=== PATIENT | female | born 1935 | race Caucasian/White ===

== ENCOUNTER 2016-08-19 05:33 | Inpatient (IN) ==
--- NOTE | 2016-08-19 05:49 | Emergency Department Note ---
Disposition Clinical Impression: Dehydration Disposition: Still a Patient Condition: Fair Referrals: Cem Dorantes MD [Primary Care Provider] - Forms: ED Satisfaction Letter Time of Disposition: 07:06 Back Pain HPI - General Chief Complaint: ED Back Pain/Injury Stated Complaint: back pain Time Seen by Provider: 08/19/16 05:35 Source: patient, EMS Limitations: no limitations Nursing Notes Reviewed: Yes Vital Signs Reviewed: Yes - History of Present Illness HPI Narrative: 80-year-old female with mechanical fall a few days ago, diagnosed with lumbar contusion, patient has had some dehydration, right lower quadrant pain, and right flank pain, thinks that she may have a UTI or urinary infection. Has been having some dysuria as well. History of bladder prolapse. 3-10 crampy pain. Pt Subjective Complaint: fall Onset (ago): day(s) Duration: intermittent Similar Symptoms Previously: Yes Pain Severity: mild Pain Scale: 3 Radiation: none Improves with: none Worsens with: none - Related Data Previous Rx's Medication Instructions Recorded Cyclobenzaprine [Flexeril] 10 mg PO TID #30 tablet 08/15/16 Allergies Allergy/AdvReac Type Severity Reaction Status Date / Time No Known Allergies Allergy Verified 02/28/16 15:13 All systems ED: reviewed and negative except as stated. Constitutional: Denies: fever, chills, weakness, weight change Cardiovascular: Denies: chest pain Respiratory: Denies: cough, dyspnea Gastrointestinal: Reports: abdominal pain, nausea. Denies: vomiting, diarrhea Genitourinary: Reports: urgency, dysuria. Denies: frequency, hematuria Musculoskeletal: Reports: back pain Integumentary: Denies: rash Past Medical History - Past Medical History Attestation: Yes The following information was validated with the patient. Source: patient Medical history: Reports: hyperlipidemia, hypertension Psychiatric history: Reports: no psych history - Social History Smoking Status: Never smoker Smokeless Tobacco Status: No Alcohol use: Reports: none Drug use: Reports: none Physical Exam Constitutional: Elderly female in no acute distress, appears stated age HEENT: NCAT, sclera anicteric, PERRLA bilaterally, normal external ears bilaterally, nasal septum nondeviated, average dentition, mucous membranes Neck: normal inspection, neck is supple, trachea midline Resp: normal chest inspection, CTA bilaterally, no resp distress CV: RRR, no m/g/r GI: normal inspection, Soft, NTND, BS present Back: Positive right CVA tenderness Neuro: A&O3, no gross motor or sensory deficits bilaterally MSK: Mild tenderness to palpation right hip with range of motion. Psych: normal mood, normal affect Skin: Poor skin turgor - General Limitations: no limitations General appearance: alert, in no apparent distress Course Course Narrative: A 1-year-old female previous mechanical fall injury now possibly dehydrated with a KI, dehydration, urinalysis ordered BMP IV fluids reassessed. Vital Signs Temperature 98.1 F 08/19/16 05:35 Pulse Rate 76 08/19/16 05:35 Respiratory Rate 16 08/19/16 05:35 Blood Pressure 176/88 08/19/16 05:35 O2 Sat by Pulse Oximetry 96 08/19/16 05:35 Temperature 98.1 F 08/19/16 05:35 Pulse Rate 76 08/19/16 05:35 Respiratory Rate 16 08/19/16 05:35 Blood Pressure 176/88 08/19/16 05:35 O2 Sat by Pulse Oximetry 96 08/19/16 05:35 Oxygen Delivery Oxygen Delivery Room Air Back Pain/Injury - Lab Data Result diagrams: 08/19/16 06:50 08/19/16 06:50 Lab Results 08/19/16 08/19/16 Range/Units 06:50 06:50 WBC 8.5 (4.3-11.1) K/mcL RBC 4.47 (3.82-4.97) M/mcL Hgb 12.4 (11.5-15.4) g/dL Hct 36.3 (35.3-44.9) % MCV 81.2 L (83.0-100.0) fL MCH 27.7 L (28.0-33.3) pg MCHC 34.2 (31.6-35.5) g/dL RDW 12.8 (11.5-14.5) % Plt Count 187 (140-400) K/mcL MPV 9.9 (9.4-12.4) fL Immature Gran % 0.7 (0-4) % Seg Neutrophils % 68.4 % Lymphocytes % 17.8 % Monocytes % 8.1 % Eosinophils % 4.6 % Basophils % 0.4 % Neutrophils # 5.8 (1.6-8.9) K/mcL Lymphocytes # 1.5 (0.6-4.6) K/mcL Monocytes # 0.7 (0.0-1.3) K/mcL Eosinophils # 0.4 (0.0-0.6) K/mcL Basophils # 0.0 (0.0-0.2) K/mcL Sodium 134 L (136-145) mEq/L Potassium 4.0 (3.5-4.5) mEq/L Chloride 100 (98-109) mEq/L Carbon Dioxide 23 (19-29) mEq/L BUN 18 (7-20) mg/dL Creatinine 0.75 (0.57-1.11) mg/dL Est GFR ( Amer) > 60 (> 60) Est GFR (Non-Af Amer) > 60 (> 60) BUN/Creatinine Ratio 24 (6-26) Glucose 90 (70-99) mg/dL Calculated Osmolality 279 L (280-300) Calcium 8.8 (8.6-10.8) mg/dL S.B.A.R. - S.B.A.R. Transition of Care: Pending labs and imaging dispo for flank pain dysuria Situation: Demographics, MOA Background: Presenting Complaint, Relevant PMH, Meds, & Allergies Assessment: Vital Signs, Course and respsone to treatment, Exam Concerns, Patient/Family Expectation, Pertinant Lab Results, Outstanding Labs Recommendation: Barrier(s) to disposition, Recommendation based on pending studies, treatments, or consults S.B.A.R. Report Given to: Phi Lyman Repor Time: 07:06 Attestation Statement - Attestation Attestation: I, Morris Allison MD, personally performed a history and physical exam of the patient and discussed their management with the resident. I reviewed the resident's note and agree with the documented findings, medical decision making , and plan of care. 80-year-old female who presents to the emergency department with a complaint of right lower back pain after a fall approximately 10 days ago. She was seen here in the emergency department approximately 5 days ago and had x-rays of her back which were reportedly negative. She returns tonight complaining of continued right lower back pain. The pain is worse with movement. No radiation down the leg. No numbness tingling or weakness. No abdominal pain. No fever. She does complain of increased urinary frequency and maybe some mild dysuria. She has not been getting around as well her as much as usual. On examination patient is a well-developed well-nourished elderly female in no acute distress. She is alert and oriented 3. There is no cyanosis or diaphoresis. She does appear mildly dehydrated mucous membranes are dry. Breath sounds are clear and equal bilaterally. Heart regular rate and rhythm. Abdomen soft and nontender with normal bowel sounds. X-ray was obtained of the right hip and pelvis. Labs and urinalysis were ordered and are pending. At shift change the patient is being signed out to the oncoming daysdeft physician, Dr. Ott.
[2016-08-19] MEDS ORDERED: 0.9 % Sodium Chloride 1,000 ML IV ONE (06:19)
[2016-08-19] MEDS ORDERED: Orphenadrine 60 MG/2 ML VIAL IVP ONE (06:20)
[2016-08-19 06:56] LABS: Basophils % 0.4 %; Eosinophils # 0.4 K/mcL (0.0-0.6); Eosinophils % 4.6 %; Hematocrit 36.3 % (35.3-44.9); Hemoglobin 12.4 g/dL (11.5-15.4); Immature Granulocytes % 0.7 % (0-4); Lymphocytes # 1.5 K/mcL (0.6-4.6); Lymphocytes % 17.8 %; Mean Corpuscular HGB Conc 34.2 g/dL (31.6-35.5); Mean Corpuscular Hemoglobin 27.7 pg (28.0-33.3); Mean Corpuscular Volume 81.2 fL (83.0-100.0); Mean Platelet Volume 9.9 fL (9.4-12.4); Monocytes # 0.7 K/mcL (0.0-1.3); Monocytes % 8.1 %; Neutrophils # 5.8 K/mcL (1.6-8.9); Platelet Count 187 K/mcL (140-400); Red Blood Count 4.47 M/mcL (3.82-4.97); Red Cell Distribution Width 12.8 % (11.5-14.5); Segmented Neutrophils % 68.4 %
--- NOTE | 2016-08-19 07:09 | Emergency Department Note ---
Disposition Clinical Impression: Inability to ambulate due to hip Back pain Qualifiers: Back pain location: low back pain Chronicity: unspecified Back pain laterality : right Sciatica presence: with sciatica Sciatica laterality: sciatica of right side Qualified Code(s): M54.41 - Lumbago with sciatica, right side Fall Qualifiers: Encounter type: subsequent encounter Qualified Code(s): W19.XXXD - Unspecified fall, subsequent encounter L1 vertebral fracture Qualifiers: Encounter type: subsequent encounter Fracture morphology: unspecified fracture morphology Fracture healing: with nonunion Disposition: Admitted As Inpatient Condition: Fair Time of Disposition: 07:32 General Adult HPI - General Chief complaint: ED Back Pain/Injury Stated complaint: back pain Time Seen by Provider: 08/19/16 05:35 Source: patient, EMS Limitations: no limitations - History of Present Illness Pain Scale: 3 - Related Data Previous Rx's Medication Instructions Recorded Cyclobenzaprine [Flexeril] 10 mg PO TID #30 tablet 08/15/16 Allergies Allergy/AdvReac Type Severity Reaction Status Date / Time No Known Allergies Allergy Verified 02/28/16 15:13 Constitutional: Denies: fever, chills, weakness, weight change Cardiovascular: Denies: chest pain Respiratory: Denies: cough, dyspnea Gastrointestinal: Reports: abdominal pain, nausea. Denies: vomiting, diarrhea Genitourinary: Reports: urgency, dysuria. Denies: frequency, hematuria Musculoskeletal: Reports: back pain Integumentary: Denies: rash Past Medical History - Past Medical History Medical history: Reports: hyperlipidemia, hypertension Psychiatric history: Reports: no psych history - Social History Smoking Status: Never smoker Smokeless Tobacco Status: No Alcohol use: Reports: none Drug use: Reports: none Physical Exam - General Limitations: no limitations General appearance: alert, in no apparent distress Course Vital Signs Temperature 98.1 F 08/19/16 05:35 Pulse Rate 76 08/19/16 05:35 Respiratory Rate 16 08/19/16 05:35 Blood Pressure 176/88 08/19/16 05:35 O2 Sat by Pulse Oximetry 96 08/19/16 05:35 Temperature 97.5 F L 08/19/16 08:54 Pulse Rate 71 08/19/16 08:54 Respiratory Rate 16 08/19/16 09:04 Blood Pressure 183/97 08/19/16 09:04 O2 Sat by Pulse Oximetry 97 08/19/16 08:54 Oxygen Delivery Oxygen Delivery Room Air Medical Decision Making - Lab Data Result diagrams: 08/19/16 06:50 08/19/16 06:50 Lab Results 08/19/16 08/19/16 08/19/16 Range/Units 06:50 06:50 07:15 WBC 8.5 (4.3-11.1) K/mcL RBC 4.47 (3.82-4.97) M/mcL Hgb 12.4 (11.5-15.4) g/dL Hct 36.3 (35.3-44.9) % MCV 81.2 L (83.0-100.0) fL MCH 27.7 L (28.0-33.3) pg MCHC 34.2 (31.6-35.5) g/dL RDW 12.8 (11.5-14.5) % Plt Count 187 (140-400) K/mcL MPV 9.9 (9.4-12.4) fL Immature Gran % 0.7 (0-4) % Seg Neutrophils % 68.4 % Lymphocytes % 17.8 % Monocytes % 8.1 % Eosinophils % 4.6 % Basophils % 0.4 % Neutrophils # 5.8 (1.6-8.9) K/mcL Lymphocytes # 1.5 (0.6-4.6) K/mcL Monocytes # 0.7 (0.0-1.3) K/mcL Eosinophils # 0.4 (0.0-0.6) K/mcL Basophils # 0.0 (0.0-0.2) K/mcL Sodium 134 L (136-145) mEq/L Potassium 4.0 (3.5-4.5) mEq/L Chloride 100 (98-109) mEq/L Carbon Dioxide 23 (19-29) mEq/L BUN 18 (7-20) mg/dL Creatinine 0.75 (0.57-1.11) mg/dL Est GFR ( Amer) > 60 (> 60) Est GFR (Non-Af Amer) > 60 (> 60) BUN/Creatinine Ratio 24 (6-26) Glucose 90 (70-99) mg/dL Calculated Osmolality 279 L (280-300) Calcium 8.8 (8.6-10.8) mg/dL Urine Color Yellow (Yellow) Urine Clarity Clear (Clear) Urine pH 6.5 (5.0-8.0) pH Units Ur Specific [place] 1.010 (1.010-1.025) Urine Protein Negative (Neg-Trace) mg/dL Urine Glucose (UA) Normal (Normal) mg/dL Urine Ketones Negative (Negative) mg/dL Urine Blood Negative (Negative) Urine Nitrite Negative (Negative) Urine Bilirubin Negative (Negative) Urine Urobilinogen Normal (Normal) mg/dL Ur Leukocyte Esterase Large H (Negative) Urine Microscopic RBC 0-3 (0-3) per hpf Urine Microscopic WBC 30-50 H (0-3) per hpf Ur Squamous Epith Cells Many H (None-Few) per lpf Urine Bacteria Few (None-Few) per hpf Hyaline Casts None Seen (None-Few) per lpf Ur Culture Indicated? YES A (NO) Attestation Statement - Attestation Attestation: Assumed from Dr. Allison at 7 AM pending a urinalysis, labs, hip x-ray, reevaluation. Patient sustained a subacute fall. She presents with right flank pain. She appears in no acute distress on exam. She is resting completely. CBC, hip x-ray results reviewed by me. Urinalysis pending 07:31: Urinalysis resulted. Culture pending. No criteria for antibiotic therapy at this time. Patient stable for discharge 07:37: The patient states she is unsafe going home. She states she has had progressive lower back pain radiating down her right lower extremity over the past 2 weeks. She is having difficulty ambulating with her walker at home. Her visitor states she is having difficulty caring for her. The patient and family member requested admission. I will obtain a CT of her lumbar spine and pelvis to exclude an occult fracture. I will request admission for the medicine service for the patient to have PT/OT and social work to [facility]
[2016-08-19 07:11] LABS: BUN/Creatinine Ratio 24 (6-26); Blood Urea Nitrogen 18 mg/dL (7-20); Calcium 8.8 mg/dL (8.6-10.8); Carbon Dioxide 23 mEq/L (19-29); Chloride 100 mEq/L (98-109); Glucose 90 mg/dL (70-99); Osmolality,Calculated 279 (280-300); Sodium 134 mEq/L (136-145); eGFR For African Americans > 60 (> 60); eGFR For Non-African Americans > 60 (> 60)
[2016-08-19 07:20] LABS: Bilirubin,Urine Negative (Negative); Blood,Urine Negative (Negative); Clarity,Urine Clear (Clear); Color,Urine Yellow (Yellow); Glucose,Urine (UA) Normal (Normal); Ketones,Urine Negative (Negative); Leukocyte Esterase,Urine Large (Negative); Nitrite,Urine Negative (Negative); PH,Urine 6.5 pH Units (5.0-8.0); Protein,Urine Negative (Neg-Trace); Urobilinogen,Urine Normal (Normal)
[2016-08-19 07:22] LABS: Bacteria,Urine Few per hpf (None-Few); Hyaline Casts,Urine None Seen per lpf (None-Few); RBC,Urine 0-3 per hpf (0-3); Squamous Epithelial Cell,Urine Many per lpf (None-Few); WBC,Urine 30-50 per hpf (0-3)
[2016-08-19] MEDS ORDERED: Ketorolac 15 MG/ML VIAL IVP ONE (07:36)
[2016-08-19] MEDS ORDERED: Naloxone 0.4 MG/ML INJ IVP PRN (09:29)
[2016-08-19] MEDS ORDERED: *HR* Morphine 2 MG/ML SYRINGE IVP PRN (09:29)
--- NOTE | 2016-08-19 09:49 | Internal Med History&Physical ---
Date of Encounter: 08/19/16 Time of Encounter: 09:49 Assessment and Plan (1) Back pain Status: Acute Back pain: Possible secondary to urinary tract infection/L1 vertebral fracture. Plan : -Bedrest. -Pain control with IV morphine. -Spine surgery consult. -MRI of the lumbar spine. -Patient is scheduled for possible kyphoplasty tomorrow. -Patient is aware of the plan. Qualifiers: Back pain location: low back pain Chronicity: unspecified Back pain laterality: right Sciatica presence: with sciatica Sciatica laterality: sciatica of right side Qualified Code(s): M54.41 - Lumbago with sciatica, right side (2) L1 vertebral fracture Status: Acute See above Qualifiers: Encounter type: subsequent encounter Fracture type: closed Fracture morphology: unspecified fracture morphology Fracture healing: with nonunion Qualified Code(s): S32.019K - Unspecified fracture of first lumbar vertebra, subsequent encounter for fracture with nonunion (3) UTI (urinary tract infection) Status: Acute Blood cultures/urine culture IV antibiotics: Ceftriaxone 1 g every 24 hours Close observation DVT prophylaxis: SCD Medical decision making: Patient has [id number] risk of worsening in spite of being on appropriate treatment Qualifiers: Urinary tract infection type: acute cystitis Hematuria presence: without hematuria Qualified Code(s): N30.00 - Acute cystitis without hematuria Internal Medicine - H&P: HPI Chief complaint: Back pain Admitted From: Emergency Dept Plans for Post Hospital Care: Home History of present illness: PCP: Dr Jayna Guallpa PMH: HTN, Dyslipidemia HPI: The patient was complaining of dysuria, increased frequency, I do not quadrant pain and occasional fever. All the symptoms were ongoing for more than 4 days. It was noted that patient had a fall and that prompted her to come to the emergency room. 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 She denies chest pain, nausea, vomiting, dizziness, abdominal pain or diarrhea. Course in the emergency room : patient was evaluated in the emergency room. Basic labs were drawn. Possibility of underlying urinary tract infection is extremely high. Imaging done. Noted that patient has a L1 fracture. Reason for admission: Acute L1 fracture secondary to fall. Complicated urinary tract infection. Family history: Noncontributory Past Med Surg Social Fam HX - Past Medical History Medical history: hyperlipidemia, hypertension Psychiatric history: no psych history - Past Surgical History Surgical History: appendectomy, breast surgery, hysterectomy, knee replacement - Social History Smoking Status: Never smoker Smokeless Tobacco Status: No Alcohol use: none Drug use: none - Family History Mother Adopted: No Family Member Ethnicity: Non- Living Status: Age at : 79 Cause of : heart condition Hx Family Cardiac Disorders: Yes Hx Family Respiratory Disorders: No Hx Family Cancer: Yes Hx Family GI Disorders: No Hx Family Genitourinary Disorders: No Hx Family Endocrine Disorder: No Hx Family Musculoskeletal Disorders: No Hx Family Neuromuscular Disorders: No Hx Family Neurologic Disorders: No Hx Family HEENT Disorders: No Hx Family Autoimmune Disorders: No Hx Family Reproductive Disorders: No Hx Family Psychosocial Disorders: No Hx Family Medical Disorders: No Internal Medicine - H&P: Meds Cyclobenzaprine [Flexeril] 10 mg PO TID #30 tablet 08/15/16 [Rx] Amlodipine [Norvasc] 5 mg PO DAILY 08/19/16 [History] Aspirin [Lo-Dose Aspirin EC] 81 mg PO DAILY 08/19/16 [History] Carvedilol [Coreg] 12.5 mg PO BID 08/19/16 [History] Diphenoxylate/Atropine [Lomotil 2.5 mg/0.025 mg] 1 tab PO QID PRN 08/19/16 [ History] Meclizine HCl [Verticalm] 25 mg PO DAILY 08/19/16 [History] Oxybutynin [Ditropan] 5 mg PO TID 08/19/16 [History] Potassium Chloride [Klor-Con 10] 10 meq PO BID 08/19/16 [History] Simvastatin [Zocor] 10 mg PO DAILY 08/19/16 [History] Allergies No Known Allergies Allergy (Verified 02/28/16 15:13) All Systems PM: A 10-system review of systems was performed and is negative for pertinent findings except as documented above in the HPI. - Constitutional Constitutional: lethargy, malaise, weakness, no chills, no fever(s), no night sweats - EENT Eyes: no change in vision, no discharge, no pain, no photophobia Ears: no ear discharge, no ear pain, no tinnitus Nose, mouth and throat: no dysphagia, no nasal discharge, no neck pain, no sore throat - Cardiovascular Cardiovascular ROS IM: no chest pain, no diaphoresis, no dyspnea, no lightheadedness, no palpitations, no syncope - Respiratory Respiratory: no cough, no dyspnea, no wheezing, no excessive phlegm production - Gastrointestinal Gastrointestinal: no abdominal pain, no diarrhea, no hematemesis, no hematochezia, no melena, no nausea, no vomiting - Genitourinary Genitourinary: dysuria, flank pain, no change in urinary stream, no hematuria - Musculoskeletal Musculoskeletal ROS IM: no numbness, no tingling - Integumentary Integumentary IM: no rash, no unusual bruising - Neurological Neurological ROS: no confusion, no convulsions, no focal weakness, no numbness, no tingling, no tremor(s) - Hematologic/Lymphatic Hematologic/Lymphatic: no easy bruising - Constitutional Vitals: Temp Pulse Resp BP Pulse Ox 97.5 F L 71 16 183/97 97 08/19/16 08:54 08/19/16 08:54 08/19/16 09:04 08/19/16 09:04 08/19/16 08:54 General appearance: Present: A&O X 3, pleasant, no acute distress, answers questions appropriately - Head Head exam: Present: atraumatic, normocephalic - Eye Eye exam: Present: PERRL, conjuntiva pink, sclera anicteric Pupils: Present: PERRL - Neck Neck exam general surgery: Present: supple, trachea midline. Absent: lymphadenopathy - Respiratory Respiratory exam: Present: CTAB. Absent: accessory muscle use, rales, rhonchi, wheezes - Cardiovascular Cardiovascular exam: Present: RRR, +S1, +S2. Absent: diastolic murmur, gallop, rubs, systolic murmur - GI/Abdominal GI/Abdominal exam: Present: normal bowel sounds, soft, no peritoneal signs. Absent: distended, tenderness - Extremities Exam Extremities exam: Present: warm, radial pulses palpable and symetrical. Absent : calf tenderness, cyanotic, pedal edema - Neurological Exam Neurological exam: Present: CN II-XII intact, oriented X3, no focal deficits. Absent: pronater drift, facial droop, speech deficit - Skin Skin exam: Present: dry, intact Internal Med - H&P Results - Labs CBC & Chem 7: 08/20/16 04:59 08/20/16 04:59
[2016-08-19] MEDS: 0.9 % Sodium Chloride 1,000 ML IVC SCH (14:20)
[2016-08-20 05:19] LABS: Basophils % 0.4 %; Eosinophils # 0.4 K/mcL (0.0-0.6); Eosinophils % 5.4 %; Hematocrit 34.7 % (35.3-44.9); Hemoglobin 11.8 g/dL (11.5-15.4); Immature Granulocytes % 0.7 % (0-4); Lymphocytes # 1.8 K/mcL (0.6-4.6); Lymphocytes % 24.2 %; Mean Corpuscular Hemoglobin 27.8 pg (28.0-33.3); Mean Corpuscular Volume 81.6 fL (83.0-100.0); Mean Platelet Volume 10.1 fL (9.4-12.4); Monocytes # 0.6 K/mcL (0.0-1.3); Monocytes % 8.6 %; Neutrophils # 4.5 K/mcL (1.6-8.9); Platelet Count 178 K/mcL (140-400); Red Blood Count 4.25 M/mcL (3.82-4.97); Red Cell Distribution Width 12.8 % (11.5-14.5); Segmented Neutrophils % 60.7 %
[2016-08-20] MEDS: 0.9 % Sodium Chloride 1,000 ML IVC SCH (05:30)
[2016-08-20 05:42] LABS: Alanine Aminotransferase 9 Units/L (0-55); Albumin/Globulin Ratio 0.8 (1.1-2.2); Alkaline Phosphatase 71 Units/L (38-126); Aspartate Amino Transferase 22 Units/L (5-34); BUN/Creatinine Ratio 19 (6-26); Bilirubin,Total 0.6 mg/dL (0.2-1.2); Blood Urea Nitrogen 14 mg/dL (7-20); Calcium 8.3 mg/dL (8.6-10.8); Carbon Dioxide 21 mEq/L (19-29); Chloride 101 mEq/L (98-109); Globulin 3.7 g/dL (2.4-3.5); Glucose 83 mg/dL (70-99); Magnesium 1.6 mg/dL (1.6-2.6); Osmolality,Calculated 274 (280-300); Potassium 3.9 mEq/L (3.5-4.5); Sodium 132 mEq/L (136-145); Total Protein 6.7 g/dL (6.0-8.3); eGFR For African Americans > 60 (> 60); eGFR For Non-African Americans > 60 (> 60)
--- NOTE | 2016-08-20 08:01 | Spinal Consult Note ---
Date of Encounter: 08/20/16 Time of Encounter: 07:59 Assessment and Plan (1) Osteopenia determined by x-ray Current Visit: Yes Status: Chronic On exam she is mild distress. AFVSS. She is neurovascularly intact with regard to her bilateral upper and lower extremities. Her hips move symmetrically. She has no clonus. She has tendernessss to palpation of the upper lumbar spine. MRI examination of the lumbar spine from 08/19/16 reveals multilevel degenerative changes and an acute L1 compression fracture with 40% loss of height. Impression: 1) Osteopenia 2) Acute vertebral compression fracture L1 Plan: Due to her continued symptoms I find it reasonable to consider surgery in the form of a Kyphoplasty L1. She declined the option of analgesics and bracing. Risks and benefits were discussed and he patient would like to proceed. History of Present Illness Chief complaint: Back pain HPI: Ms. Hollins is a 80 year old female who had a fal on 08/09/16 onto back side. She now complain of escalating low back pain which became intractable and prompted transfer to the Emergency Department. Work up revealed an acute fracture and she was admittted for definitive management. Denies fevers, chills, or radicular symptoms. Past Med Surg Social Fam HX - Past Medical History Medical history: hyperlipidemia, hypertension Psychiatric history: no psych history - Past Surgical History Surgical History: appendectomy, breast surgery, hysterectomy, knee replacement - Social History Smoking Status: Never smoker Smokeless Tobacco Status: No Alcohol use: none Drug use: none - Family History Mother Adopted: No Family Member Ethnicity: Non- Living Status: Age at : 79 Cause of : heart condition Hx Family Cardiac Disorders: Yes Hx Family Respiratory Disorders: No Hx Family Cancer: Yes Hx Family GI Disorders: No Hx Family Genitourinary Disorders: No Hx Family Endocrine Disorder: No Hx Family Musculoskeletal Disorders: No Hx Family Neuromuscular Disorders: No Hx Family Neurologic Disorders: No Hx Family HEENT Disorders: No Hx Family Autoimmune Disorders: No Hx Family Reproductive Disorders: No Hx Family Psychosocial Disorders: No Hx Family Medical Disorders: No Medications and Allergies Cyclobenzaprine [Flexeril] 10 mg PO TID #30 tablet 08/15/16 [Rx] Amlodipine [Norvasc] 5 mg PO DAILY 08/19/16 [History] Aspirin [Lo-Dose Aspirin EC] 81 mg PO DAILY 08/19/16 [History] Carvedilol [Coreg] 12.5 mg PO BID 08/19/16 [History] Diphenoxylate/Atropine [Lomotil 2.5 mg/0.025 mg] 1 tab PO QID PRN 08/19/16 [ History] Meclizine HCl [Verticalm] 25 mg PO DAILY 08/19/16 [History] Oxybutynin [Ditropan] 5 mg PO TID 08/19/16 [History] Potassium Chloride [Klor-Con 10] 10 meq PO BID 08/19/16 [History] Simvastatin [Zocor] 10 mg PO DAILY 08/19/16 [History] Allergies No Known Allergies Allergy (Verified 02/28/16 15:13) Results - Labs Result Diagrams: 08/20/16 04:59 08/20/16 04:59 Labs: Abnormal lab results Hct 34.7 % (35.3-44.9) L 08/20/16 04:59 MCV 81.6 fL (83.0-100.0) L 08/20/16 04:59 MCH 27.8 pg (28.0-33.3) L 08/20/16 04:59 Sodium 132 mEq/L (136-145) L 08/20/16 04:59 Calculated Osmolality 274 (280-300) L 08/20/16 04:59 Calcium 8.3 mg/dL (8.6-10.8) L 08/20/16 04:59 Albumin 3.0 g/dL (3.5-5.0) L 08/20/16 04:59 Globulin 3.7 g/dL (2.4-3.5) H 08/20/16 04:59 Albumin/Globulin Ratio 0.8 (1.1-2.2) L 08/20/16 04:59 Ur Leukocyte Esterase Large (Negative) H 08/19/16 07:15 Urine Microscopic WBC 30-50 per hpf (0-3) H 08/19/16 07:15 Ur Squamous Epith Cells Many per lpf (None-Few) H 08/19/16 07:15 Ur Culture Indicated? YES (NO) A 08/19/16 07:15 H & H 08/20/16 Range/Units 04:59 Hgb 11.8 (11.5-15.4) g/dL Hct 34.7 L (35.3-44.9) % All other labs normal. Consult Discharge Plan - Plan Referrals: Cem Dorantes MD [Primary Care Provider] -
--- NOTE | 2016-08-20 08:04 | Anesthesia Evaluation PreOp ---
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 (acute L4 (per CT), lumbar stenosis) Other Medical History: Denies Any Significant HX Anesthesia History: No Prior Anesthetic Complications, Past Anesthesia Alcohol Use: none Drug use: none Medications and Allergies Cyclobenzaprine [Flexeril] 10 mg PO TID #30 tablet 08/15/16 [Rx] Amlodipine [Norvasc] 5 mg PO DAILY 08/19/16 [History] Aspirin [Lo-Dose Aspirin EC] 81 mg PO DAILY 08/19/16 [History] Carvedilol [Coreg] 12.5 mg PO BID 08/19/16 [History] Diphenoxylate/Atropine [Lomotil 2.5 mg/0.025 mg] 1 tab PO QID PRN 08/19/16 [ History] Meclizine HCl [Verticalm] 25 mg PO DAILY 08/19/16 [History] Oxybutynin [Ditropan] 5 mg PO TID 08/19/16 [History] Potassium Chloride [Klor-Con 10] 10 meq PO BID 08/19/16 [History] Simvastatin [Zocor] 10 mg PO DAILY 08/19/16 [History] Allergies No Known Allergies Allergy (Verified 02/28/16 15:13) - Meds/Allergy Pre-op Review Medications Reviewed: Yes Allergies Reviewed: Yes Beta Blockers on Current Med List: Yes If Beta Blockers taken, Date/Time (Last Dose taken): coreg did not take today, must give preop Anesthesia Results - Labs 08/20/16 04:59 08/20/16 04:59 - Imaging EKG: report reviewed (nsr (2012), no cardiac issues since) Anesthesia Exam O2 Sat Height 1.63 m Height 1.63 m Weight 94 kg Weight 93.123 kg Weight 93.123 kg O2 Sat by Pulse Oximetry 94 O2 Sat by Pulse Oximetry 95 O2 Sat by Pulse Oximetry 94 O2 Sat by Pulse Oximetry 96 O2 Sat by Pulse Oximetry 96 O2 Sat by Pulse Oximetry 96 O2 Sat by Pulse Oximetry 97 Vital Signs Temp Pulse Resp BP Pulse Ox 98.1 F 76 16 176/88 96 08/19/16 05:35 08/19/16 05:35 08/19/16 05:35 08/19/16 05:35 08/19/16 05:35 Vital Signs/O2 Sat/Glucose, Most Current Temp Pulse Resp BP Pulse Ox 08/20/16 07:39 97.9 F 79 18 154/83 94 L Height: 1.63 Weight: 93 NPO (# of Hours): >8 - HEENT Pupil (Motor): Pupils equal, EOMI Mallampati: II Teeth: Edentulous Oral Opening: Greater than 3 - ELECTROGALVANIZING MACHINE OPERATOR LOC: Oriented ELECTROGALVANIZING MACHINE OPERATOR Motor: Normal RUE, Normal LUE, Normal RLE, Normal LLE, Normal Face ELECTROGALVANIZING MACHINE OPERATOR Sensory: Normal: RUE, LUE, RLE, LLE, Face - Cardiac Rhythm: Regular Murmur: None - Pulmonary Breath Sounds: bilateral Clear Respiratory Effort: Symmetrical Anesthesia Assess/Plan ASA Score: 3 Modified Dhruv Scale for Level of Consciousness: Cooperative, oriented, and tranquil Anesthetic Plan: General Monitoring Plan: Standard Monitors Recovery Plan: PACU
[2016-08-20] MEDS ORDERED: *HR* Propofol 200 MG/20 ML VIAL IVP ONE (08:15)
[2016-08-20] MEDS ORDERED: Lidocaine -MPF 2% 2 ML VIAL ONE (08:15)
[2016-08-20] MEDS ORDERED: *HR* FentaNYL (PF) 100 MCG/2 ML VIAL ONE (08:15)
[2016-08-20] MEDS ORDERED: *HR* Succinylcholine 200 MG/10 ML VIAL IVP ONE (08:15)
[2016-08-20] MEDS ORDERED: *HR* Phenylephrine 10 MG/ML VIAL ONE (08:15)
[2016-08-20] MEDS ORDERED: *HR* Metoprolol 5 MG/5 ML VIAL IVP ONE (09:41)
[2016-08-20] MEDS ORDERED: EPHEDrine 50 MG/ML VIAL ONE (09:41)
[2016-08-20] MEDS ORDERED: Ondansetron 4 MG/2 ML VIAL IVP ONE (09:57)
[2016-08-20] MEDS ORDERED: *HR* HYDROmorphone (PF) 1 MG/ML SYRINGE IVP PRN (09:57)
[2016-08-20] MEDS ORDERED: *HR* Morphine 2 MG/ML SYRINGE IVP PRN ×2 (09:57→11:41)
[2016-08-20] MEDS ORDERED: Dexamethasone 4 MG/ML VIAL ONE (10:06)
--- NOTE | 2016-08-20 10:13 | Orthopedic Operative Note ---
Date of procedure: 08/20/16 Pre-op diagnosis: Osteopenia, vertebral compression fracture Post-op diagnosis: same Operation/Findings: Kyphoplasty L1: The patient was brought to the operative theater where successful endotracheal anesthesia was performed. The patient was given antibiotics prior to the start of the procedure. Compression boots and stockings were used for deep vein thrombosis. Patient was then turned prone on a well-padded Lennox table. The back was prepped and draped in the usual sterile fashion. 2 C-arm fluorographic devices were brought into position such that simultaneous AP and lateral views centered over the involved L1 vertebral body could be performed. A stab incision was made over the superior-lateral aspect of the left L1 pedicle. We introduced a Jamshidi needle into the L1 vertebral body via a transpedicular route. We took biplanar images of the L1 vertebral body using fluorography. The needle was found to be in appropriate position and within the confines of the L1 vertebral body. We then introduced a biopsy trocar and obtained a biopsy specimen of the vertebral body. This was sent for pathologic evaluation. We then removed the biopsy trocar and introduced a Kyphon balloon. The balloon was insufflated to approximately 4mL volume and subsequently deflated. The balloon was seen to expand within the confines of the vertebral body on biplanar fluorographic views. The balloon was then removed. We then inserted cement trochars and sequentially placed bone cement within the confines of the L1 vertebral body. We took intermittent fluorographic views which confirmed satisfactory placement of the cement. After completion of the cementation process, the trocar was removed. We took final AP and lateral fluorographic views. We then closed the stab incision with 2-0 nylon suture. A Band-Aid was placed over the wound. The patient was turned supine on a hospital bed and extubated. All sponge instrument and needle counts were correct at the end of the procedure. The patient tolerated the procedure well without complications. Anesthesia: GETA Surgeon: Scott Gonzalez Jr Estimated blood loss (cc): 2 Specimen: L1 vertebral biopsy Condition: stable Disposition: PACU
[2016-08-20] MEDS ORDERED: Naloxone 0.4 MG/ML INJ IVP PRN (11:41)
[2016-08-20] MEDS ORDERED: Diphenoxylate/Atropine 1 TAB TABLET PO PRN (11:41)
[2016-08-20] MEDS ORDERED: amLODIPine 5 MG TABLET PO ONE (11:42)
[2016-08-20] MEDS: Ringers Solution, Lactated 1,000 ML IVC SCH (12:18)
[2016-08-20] MEDS: ceFAZolin 2,000 MG in D5% in Water 100 ML IVPB SCH (17:02)
--- NOTE | 2016-08-20 17:02 | Internal Med Progress Note ---
Date of Encounter: 08/20/16 Time of Encounter: 16:57 - Assessment and plan (1) Fall Current Visit: Yes Status: Acute Assessment and plan: PT/OT has been consulted high [place] for recurrent fall will follow recommendtaions Qualifiers: Encounter type: subsequent encounter Qualified Code(s): W19.XXXD - Unspecified fall, subsequent encounter (2) L1 vertebral fracture Current Visit: Yes Status: Acute Assessment and plan: s/p kyphoplasty today with DR. Gonzalez. post op care as per ortho. currently stable Qualifiers: Encounter type: subsequent encounter Fracture type: closed Fracture morphology: unspecified fracture morphology Fracture healing: with nonunion Qualified Code(s): S32.019K - Unspecified fracture of first lumbar vertebra, subsequent encounter for fracture with nonunion (3) UTI (urinary tract infection) Current Visit: Yes Status: Acute Assessment and plan: will treat with IV ceftriaxone at this time. Patient remained stable without any fever, no leukocytosis. We will follow urine cultures and de-escalate antibiotics as able. Qualifiers: Urinary tract infection type: acute cystitis Hematuria presence: without hematuria Qualified Code(s): N30.00 - Acute cystitis without hematuria - Time Spent With Patient 25 - 35 minutes - Subjective Interval history: Patient seen in the bedtime, denies any pain. No burning micturition, status post surgery with Dr. Gonzalez today. - Constitutional Vitals: Temp Pulse Resp BP Pulse Ox 97.7 F 86 16 128/83 97 08/20/16 15:46 08/20/16 15:46 08/20/16 15:46 08/20/16 15:46 08/20/16 15:46 General appearance: Present: A&O X 3, pleasant, no acute distress, answers questions appropriately Exam: - Head Head exam: Present: atraumatic, normocephalic - Eye Eye exam: Present: PERRL, conjuntiva pink, sclera anicteric Pupils: Present: PERRL - Neck Neck exam general surgery: Present: supple, trachea midline. Absent: lymphadenopathy - Respiratory Respiratory exam: Present: CTAB. Absent: accessory muscle use, rales, rhonchi, wheezes - Cardiovascular Cardiovascular exam: Present: RRR, +S1, +S2. Absent: diastolic murmur, gallop, rubs, systolic murmur - GI/Abdominal GI/Abdominal exam: Present: normal bowel sounds, soft, no peritoneal signs. Absent: distended, tenderness - Extremities Exam Extremities exam: Present: warm, radial pulses palpable and symetrical. Absent : calf tenderness, cyanotic, pedal edema - Neurological Exam Neurological exam: Present: CN II-XII intact, oriented X3, no focal deficits. Absent: pronater drift, facial droop, speech deficit Internal Medicine: Result - Labs CBC & Chem 7: 08/20/16 04:59 08/20/16 04:59 Labs: Short CBC 08/20/16 Range/Units 04:59 WBC 7.4 (4.3-11.1) K/mcL Hgb 11.8 (11.5-15.4) g/dL Hct 34.7 L (35.3-44.9) % Plt Count 178 (140-400) K/mcL Neutrophils # 4.5 (1.6-8.9) K/mcL BMP 08/20/16 04:59 Sodium 132 L Potassium 3.9 Chloride 101 Carbon Dioxide 21 BUN 14 Creatinine 0.73 Glucose 83 Calcium 8.3 L Cardiac Enzymes 08/19/16 08/19/16 Range/Units 16:37 22:25 Troponin I 0.01 0.01 (0-0.03) ng/mL Liver Function 08/20/16 Range/Units 04:59 Total Bilirubin 0.6 (0.2-1.2) mg/dL AST 22 (5-34) Units/L ALT 9 (0-55) Units/L Alkaline Phosphatase 71 (38-126) Units/L Albumin 3.0 L (3.5-5.0) g/dL - Impressions Impressions Fluoroscopy 08/20/16 00:00 IMPRESSION: Intraprocedural fluoroscopic spot images as above. See separate procedure report for more information. D/ / 08/20/2016 12:04:46 Ankit Mack MD / kemar Interpreting Provider: Ankit Mack MD Lumbar Spine X-Ray 08/20/16 00:00 IMPRESSION: Intraprocedural fluoroscopic spot images as above. See separate procedure report for more information. D/ / 08/20/2016 12:04:46 Ankit Mack MD / kemar Interpreting Provider: Ankit Mack MD Xray Preliminary Report 08/20/16 00:00 IMPRESSION: Intraprocedural fluoroscopic spot images as above. See separate procedure report for more information. D/ / 08/20/2016 12:04:46 Ankit Mack MD / kemar Interpreting Provider: Ankit Mack MD - VTE Documentation of Mechanical Device: Graduated compression elastic hosiery Consult Discharge Plan - Plan Referrals: Cem Dorantes MD [Primary Care Provider] -
[2016-08-21] MEDS: Ringers Solution, Lactated 1,000 ML IVC SCH ×3 (00:31→20:18)
[2016-08-21] MEDS: ceFAZolin 2,000 MG in D5% in Water 100 ML IVPB SCH (00:31)
--- NOTE | 2016-08-21 08:02 | Internal Med Progress Note ---
Date of Encounter: 08/21/16 - Constitutional Vitals: Temp Pulse Resp BP Pulse Ox 98.3 F 81 14 154/73 97 08/21/16 07:22 08/21/16 07:22 08/21/16 07:22 08/21/16 07:22 08/21/16 07:22 General appearance: Present: A&O X 3, pleasant, no acute distress, answers questions appropriately Internal Medicine: Result - Labs CBC & Chem 7: 08/20/16 04:59 08/20/16 04:59 - Impressions Impressions Fluoroscopy 08/20/16 00:00 IMPRESSION: Intraprocedural fluoroscopic spot images as above. See separate procedure report for more information. D/ / 08/20/2016 12:04:46 Ankit Mack MD / kemar Interpreting Provider: Ankit Mack MD Lumbar Spine X-Ray 08/20/16 00:00 IMPRESSION: Intraprocedural fluoroscopic spot images as above. See separate procedure report for more information. D/ / 08/20/2016 12:04:46 Ankit Mack MD / kemar Interpreting Provider: Ankit Mack MD Xray Preliminary Report 08/20/16 00:00 IMPRESSION: Intraprocedural fluoroscopic spot images as above. See separate procedure report for more information. D/ / 08/20/2016 12:04:46 Ankit Mack MD / kemar Interpreting Provider: Ankit Mack MD - VTE Documentation of Mechanical Device: Graduated compression elastic hosiery Consult Discharge Plan - Plan Referrals: Cem Dorantes MD [Primary Care Provider] -
[2016-08-21] MEDS: amLODIPine 5 MG TABLET PO SCH (08:59)
[2016-08-21] MEDS: Aspirin Enteric Coated 81 MG Tablet PO SCH (08:59)
[2016-08-21] MEDS: MECLIZINE HCL 25 MG PO SCH (09:02)
[2016-08-22] MEDS: Ringers Solution, Lactated 1,000 ML IVC SCH (06:20)
[2016-08-22] MEDS: Aspirin Enteric Coated 81 MG Tablet PO SCH (10:16)
[2016-08-22] MEDS: amLODIPine 5 MG TABLET PO SCH (10:17)
[2016-08-22] MEDS: MECLIZINE HCL 25 MG PO SCH (10:19)
[2016-08-22 10:39] VITALS: BP 148/78
[2016-08-22] MEDS ORDERED: Sennosides 8.6 MG TABLET PO SCH (11:45)
--- NOTE | 2016-08-22 12:22 | Discharge Summary ---
Date of Encounter: 08/22/16 Time of Encounter: 12:20 - Discharge Diagnosis (1) Fall Priority: Primary Status: Acute Qualifiers: Encounter type: subsequent encounter Qualified Code(s): W19.XXXD - Unspecified fall, subsequent encounter (2) L1 vertebral fracture Priority: Primary Status: Acute Qualifiers: Encounter type: subsequent encounter Fracture type: closed Fracture morphology: unspecified fracture morphology Fracture healing: with nonunion Qualified Code(s): S32.019K - Unspecified fracture of first lumbar vertebra, subsequent encounter for fracture with nonunion (3) UTI (urinary tract infection) Priority: Primary Status: Acute Qualifiers: Urinary tract infection type: acute cystitis Hematuria presence: without hematuria Qualified Code(s): N30.00 - Acute cystitis without hematuria - Discharge Medications Home Medications: Cyclobenzaprine [Flexeril] 10 mg PO TID #30 tablet 08/15/16 [Rx] Amlodipine [Norvasc] 5 mg PO DAILY 08/19/16 [History] Aspirin [Lo-Dose Aspirin EC] 81 mg PO DAILY 08/19/16 [History] Carvedilol [Coreg] 12.5 mg PO BID 08/19/16 [History] Diphenoxylate/Atropine [Lomotil 2.5 mg/0.025 mg] 1 tab PO QID PRN 08/19/16 [ History] Meclizine HCl [Verticalm] 25 mg PO DAILY 08/19/16 [History] Oxybutynin [Ditropan] 5 mg PO TID 08/19/16 [History] Potassium Chloride [Klor-Con 10] 10 meq PO BID 08/19/16 [History] Simvastatin [Zocor] 10 mg PO DAILY 08/19/16 [History] Allergies/Adverse Reactions: Allergies No Known Allergies Allergy (Verified 02/28/16 15:13) Date of admission: 08/19/16 15:30 Primary care physician: Cem Dorantes MD Consults: 08/20/16 11:41 Consult to Occupational Therapy [CONS] Routine Comment: Evaluate, develop and implement POC Consult to Physical Therapy [CONS] Routine Comment: Evaluate, develop and implement POC 08/21/16 09:13 Consult to Salvage Grinder [CONS] Routine Reason for SW Consult: discharge planning; will possibly need rehab Discharging clinician: Halina Rosen Anticipated date of discharge: 08/22/16 - Patient Status Disposition: Transfer Inpatient Rehab Fac Condition: Fair Functional capacity at discharge: uses cane/walker Overall status at discharge: patient is progressing back to baseline - Discharge Instructions Follow Up With: Scott Gonzalez Jr, MD [Partnered Physician] - 09/04/16 8:40 am - Diet and Activity Activity: as per physical therapy Interval History: Gurvinder is a 80 year old female who had a fall on 08/09/16 onto back side. She now complain of escalating low back pain which became intractable and prompted transfer to the Emergency Department. Work up revealed an acute fracture and she was admittted for definitive management. Denies fevers, chills, or radicular symptoms. She is neurovascularly intact with regard to her bilateral upper and lower extremities. Her hips move symmetrically. She has no clonus. She has tendernessss to palpation of the upper lumbar spine. MRI examination of the lumbar spine from 08/19/16 reveals multilevel degenerative changes and an acute L1 compression fracture with 40% loss of height. Impression: 1) Osteopenia 2) Acute vertebral compression fracture L1 spine surgery was consulted and she underwent Kyphoplasty L1. She declined the option of analgesics and bracing. she improved clinically. sridhar had signs of UTI and was strated on IV ceftriaxone, however urine cx is negative, ab has been stopped. sridhar is being dc today in stable condiion to rehab.will be give f/u with DR. Gonzalez as OP. Hospital course: Ms. Hollins is a 81 year old female Time spent discussing smoking cessation with patient: more than 10 minutes - Time Spent with Patient Total time spent providing and/or coordinating discharge services: Greater than 30 minutes - Constitutional Vitals: Temp Pulse Resp BP Pulse Ox 97.4 F L 66 14 148/78 95 08/22/16 10:37 08/22/16 10:37 08/22/16 10:37 08/22/16 10:37 08/22/16 10:37 General appearance: Present: A&O X 3, pleasant, no acute distress, answers questions appropriately Exam: - Head Head exam: Present: atraumatic, normocephalic - Eye Eye exam: Present: PERRL, conjuntiva pink, sclera anicteric Pupils: Present: PERRL - Neck Neck exam general surgery: Present: supple, trachea midline. Absent: lymphadenopathy - Respiratory Respiratory exam: Present: CTAB. Absent: accessory muscle use, rales, rhonchi, wheezes - Cardiovascular Cardiovascular exam: Present: RRR, +S1, +S2. Absent: diastolic murmur, gallop, rubs, systolic murmur - GI/Abdominal GI/Abdominal exam: Present: normal bowel sounds, soft, no peritoneal signs. Absent: distended, tenderness - Extremities Exam Extremities exam: Present: warm, radial pulses palpable and symetrical. Absent : calf tenderness, cyanotic, pedal edema - Neurological Exam Neurological exam: Present: CN II-XII intact, oriented X3, no focal deficits. Absent: pronater drift, facial droop, speech deficit - Skin Skin exam: Present: dry, intact - VTE Documentation of Mechanical Device: Intermittent pneumatic compression device
--- NOTE | 2016-08-22 12:23 | Physician Discharge Referral ---
ExtendedCare Referral Info Transfer To: [facility] Provider in Charge: hali aguilera Institutional Level of Care: Intermediate - MR - Diagnosis (1) Fall Status: Acute (2) L1 vertebral fracture Status: Acute (3) UTI (urinary tract infection) Status: Acute - Transfer Medications Home Medications: Cyclobenzaprine [Flexeril] 10 mg PO TID #30 tablet 08/15/16 [Rx] Amlodipine [Norvasc] 5 mg PO DAILY 08/19/16 [History] Aspirin [Lo-Dose Aspirin EC] 81 mg PO DAILY 08/19/16 [History] Carvedilol [Coreg] 12.5 mg PO BID 08/19/16 [History] Diphenoxylate/Atropine [Lomotil 2.5 mg/0.025 mg] 1 tab PO QID PRN 08/19/16 [ History] Meclizine HCl [Verticalm] 25 mg PO DAILY 08/19/16 [History] Oxybutynin [Ditropan] 5 mg PO TID 08/19/16 [History] Potassium Chloride [Klor-Con 10] 10 meq PO BID 08/19/16 [History] Simvastatin [Zocor] 10 mg PO DAILY 08/19/16 [History] Allergies/Adverse Reactions: Allergies No Known Allergies Allergy (Verified 02/28/16 15:13) - Respiratory Orders Smoking Cessation: Smoking cessation has been advised. For more information, call the [place] Tobacco Quit Line at 7-812-HCNA-NOW. - Advance Directives Code Status: Full Code - Mobility Orders Chair, Ambulate - Rehabiliation Orders Rehab Potential: Fair Rehab Orders: Evaluation for Physical Therapy, Evaluation for Occupational Therapy - Diet Orders Regular CERTIFICATION: I certify that the transfer of the above named patient to an Extended Care Facility is necessary for the continuing treatment of the diagnosis listed. The above information is true and accurate reflection of patient's current condition. Confidential - Redisclosure prohibited without a patient's written consent.
[2016-08-22] MEDS ORDERED: *HR* Heparin 5,000 UNIT/ML VIAL SQ SCH (18:00)
== END 2016-08-22 15:02 | DRG 478 ==
LOC: EMEROO 05:33 → 3ANU 05:33
PROVIDERS: ADMIT Internal Medicine Endocrinology, Diabetes & Metabolism; ATTEND Internal Medicine Endocrinology, Diabetes & Metabolism

== ENCOUNTER 2018-01-17 15:17 | Observation (INO) ==
[2018-01-17] MEDS ORDERED: Ipratropium/Albuterol Neb 3 ML IH ONE (15:20)
[2018-01-17] MEDS ORDERED: Isovue-370 500 ML INFUS..BTL IV ONE (15:58)
--- NOTE | 2018-01-17 16:14 | Emergency Department Note ---
Disposition Clinical Impression: Productive cough Disposition: Still a Patient Condition: Fair Referrals: Cem Dorantes MD [Primary Care Provider] - General Adult HPI - General Chief complaint: ED Upper Respiratory Infection Stated complaint: cough Time Seen by Provider: 01/17/18 15:20 - Related Data Home Medications Medication Instructions Recorded Confirmed Aspirin [Lo-Dose Aspirin EC] 81 mg PO DAILY 08/19/16 12/30/17 Carvedilol [Coreg] 12.5 mg PO BID 08/19/16 12/30/17 Diphenoxylate/Atropine [Lomotil 1 tab PO QID PRN 08/19/16 12/30/17 2.5 mg/0.025 mg] Meclizine HCl [Verticalm] 25 mg PO DAILY 08/19/16 12/30/17 Potassium Chloride [Klor-Con 10] 10 meq PO BID 08/19/16 12/30/17 Simvastatin [Zocor] 10 mg PO DAILY 08/19/16 12/30/17 amLODIPine [Norvasc] 5 mg PO DAILY 08/19/16 12/30/17 Esomeprazole Magnesium [Nexium 20 mg PO DAILY 12/27/17 12/30/17 24Hr] Famotidine [Pepcid] 40 mg PO DAILY 12/27/17 12/30/17 Oxybutynin Chloride [Ditropan Xl] 15 mg PO DAILY 12/27/17 12/30/17 Previous Rx's Medication Instructions Recorded Famotidine [Pepcid] 20 mg PO DAILY 30 Days #30 tablet 12/28/17 Sucralfate [Carafate] 1 gm PO QIDAC 30 Days #120 tablet 12/28/17 levoFLOXacin [Levaquin] 250 mg PO DAILY #10 tablet 01/01/18 Allergies Allergy/AdvReac Type Severity Reaction Status Date / Time Cyclobenzaprine AdvReac Confusion Verified 12/30/17 14:17 [From Flexeril] Past Medical History - Past Medical History Medical history: Reports: hyperlipidemia, hypertension Surgical history: Reports: appendectomy, breast surgery, hysterectomy, knee replacement Psychiatric history: Reports: no psych history METAL CLEANER history: Reports: no METAL CLEANER history - Social History Smoking Status: Never smoker Smokeless Tobacco Status: No Alcohol use: Reports: none Drug use: Reports: none Attestation Statement - Attestation Attestation: I examined this patient and my medical decision-making was reviewed with the Resident Physician. I agree with the documented findings, disposition and treatment plan as described except to the extent set forth below. 82 year old female prsents to the ED with complaints of cough that is productive and waxy and appears to in the almost of dipped candle tapers. She states that she was in the hospital about 1 month ago for UTI and discharge and in the past two days she has been experincing this productive cough iwth pink foamy discahrge as well. She has a history of bronchitis. Abdoulaye humphries there is a family history of lung cancer with her father but she herself has never smoked. Denies chest pain or abdominal pain at thist ren.
[2018-01-17 16:22] LABS: Basophils % 0.5 %; Eosinophils # 0.3 K/mcL (0.0-0.6); Eosinophils % 4.9 %; Hematocrit 35.5 % (35.3-44.9); Hemoglobin 12.1 g/dL (11.5-15.4); Immature Granulocytes % 0.5 % (0-4); Lymphocytes # 1.8 K/mcL (0.6-4.6); Lymphocytes % 28.9 %; Mean Corpuscular HGB Conc 34.1 g/dL (31.6-35.5); Mean Corpuscular Hemoglobin 27.9 pg (28.0-33.3); Mean Corpuscular Volume 81.8 fL (83.0-100.0); Mean Platelet Volume 9.6 fL (9.4-12.4); Monocytes # 0.5 K/mcL (0.0-1.3); Monocytes % 7.6 %; Neutrophils # 3.6 K/mcL (1.6-8.9); Platelet Count 206 K/mcL (140-400); Red Blood Count 4.34 M/mcL (3.82-4.97); Red Cell Distribution Width 13.2 % (11.5-14.5); Segmented Neutrophils % 57.6 %
--- NOTE | 2018-01-17 16:23 | Emergency Department Note ---
Disposition Clinical Impression: Productive cough Disposition: Still a Patient Condition: Fair Referrals: Cem Dorantes MD [Primary Care Provider] - Forms: ED Satisfaction Letter General Adult HPI - General Chief complaint: ED Upper Respiratory Infection Stated complaint: cough Time Seen by Provider: 01/17/18 15:20 - Related Data Home Medications Medication Instructions Recorded Confirmed Aspirin [Lo-Dose Aspirin EC] 81 mg PO DAILY 08/19/16 12/30/17 Carvedilol [Coreg] 12.5 mg PO BID 08/19/16 12/30/17 Diphenoxylate/Atropine [Lomotil 1 tab PO QID PRN 08/19/16 12/30/17 2.5 mg/0.025 mg] Meclizine HCl [Verticalm] 25 mg PO DAILY 08/19/16 12/30/17 Potassium Chloride [Klor-Con 10] 10 meq PO BID 08/19/16 12/30/17 Simvastatin [Zocor] 10 mg PO DAILY 08/19/16 12/30/17 amLODIPine [Norvasc] 5 mg PO DAILY 08/19/16 12/30/17 Esomeprazole Magnesium [Nexium 20 mg PO DAILY 12/27/17 12/30/17 24Hr] Famotidine [Pepcid] 40 mg PO DAILY 12/27/17 12/30/17 Oxybutynin Chloride [Ditropan Xl] 15 mg PO DAILY 12/27/17 12/30/17 Previous Rx's Medication Instructions Recorded Famotidine [Pepcid] 20 mg PO DAILY 30 Days #30 tablet 12/28/17 Sucralfate [Carafate] 1 gm PO QIDAC 30 Days #120 tablet 12/28/17 levoFLOXacin [Levaquin] 250 mg PO DAILY #10 tablet 01/01/18 Allergies Allergy/AdvReac Type Severity Reaction Status Date / Time Cyclobenzaprine AdvReac Confusion Verified 12/30/17 14:17 [From Flexeril] Past Medical History - Past Medical History Medical history: Reports: hyperlipidemia, hypertension Surgical history: Reports: appendectomy, breast surgery, hysterectomy, knee replacement Psychiatric history: Reports: no psych history COMMISSARY PRODUCTION SUPERVISOR history: Reports: no COMMISSARY PRODUCTION SUPERVISOR history - Social History Smoking Status: Never smoker Smokeless Tobacco Status: No Alcohol use: Reports: none Drug use: Reports: none Medical Decision Making - Lab Data Result diagrams: 01/17/18 16:05 Lab Results 01/17/18 Range/Units 16:05 WBC 6.3 (4.3-11.1) K/mcL RBC 4.34 (3.82-4.97) M/mcL Hgb 12.1 (11.5-15.4) g/dL Hct 35.5 (35.3-44.9) % MCV 81.8 L (83.0-100.0) fL MCH 27.9 L (28.0-33.3) pg MCHC 34.1 (31.6-35.5) g/dL RDW 13.2 (11.5-14.5) % Plt Count 206 (140-400) K/mcL MPV 9.6 (9.4-12.4) fL Immature Gran % 0.5 (0-4) % Seg Neutrophils % 57.6 % Lymphocytes % 28.9 % Monocytes % 7.6 % Eosinophils % 4.9 % Basophils % 0.5 % Neutrophils # 3.6 (1.6-8.9) K/mcL Lymphocytes # 1.8 (0.6-4.6) K/mcL Monocytes # 0.5 (0.0-1.3) K/mcL Eosinophils # 0.3 (0.0-0.6) K/mcL Basophils # 0.0 (0.0-0.2) K/mcL Attestation Statement - Attestation Attestation: I examined this patient and my medical decision-making was reviewed with the Resident Physician. I agree with the documented findings, disposition and treatment plan as described except to the extent set forth below. 82 year old pola presents to the ED with complaints of cough and states t
[2018-01-17 16:43] LABS: BUN/Creatinine Ratio 25 (6-26); Blood Urea Nitrogen 17 mg/dL (8-23); Calcium 9.3 mg/dL (8.6-10.3); Carbon Dioxide 25 mEq/L (23-29); Chloride 100 mEq/L (98-107); Glucose 137 mg/dL (70-105); Osmolality,Calculated 284 (280-300); Potassium 3.7 mEq/L (3.5-5.1); Sodium 135 mEq/L (136-145); eGFR For Non-African Americans > 60 (> 60)
[2018-01-17] MEDS ORDERED: Levofloxacin 750 MG/150 ML 750 MG/150 ML BAG IVPB ONE (18:25)
[2018-01-17] MEDS ORDERED: MethylPREDNISolone 40 MG/ML VIAL IVP ONE (18:26)
--- NOTE | 2018-01-17 18:29 | Emergency Department Note ---
Disposition Clinical Impression: Productive cough Disposition: Admitted As Inpatient Condition: Good Referrals: Cem Dorantes MD [Primary Care Provider] - Forms: ED Satisfaction Letter Time of Disposition: 19:46 General Adult HPI - General Chief complaint: ED Upper Respiratory Infection Stated complaint: cough Time Seen by Provider: 01/17/18 15:20 Nursing Notes Reviewed: Yes Vital Signs Reviewed: Yes - History of Present Illness HPI Narrative: 1 day history of productive cough. [place]-like consistency. [place]. No recent illnesses. No chest pain or shortness of breath. Onset was earlier this morning. No provoking factors. Nothing makes this better. - Related Data Home Medications Medication Instructions Recorded Confirmed Aspirin [Lo-Dose Aspirin EC] 81 mg PO DAILY 08/19/16 12/30/17 Carvedilol [Coreg] 12.5 mg PO BID 08/19/16 12/30/17 Diphenoxylate/Atropine [Lomotil 1 tab PO QID PRN 08/19/16 12/30/17 2.5 mg/0.025 mg] Meclizine HCl [Verticalm] 25 mg PO DAILY 08/19/16 12/30/17 Potassium Chloride [Klor-Con 10] 10 meq PO BID 08/19/16 12/30/17 Simvastatin [Zocor] 10 mg PO DAILY 08/19/16 12/30/17 amLODIPine [Norvasc] 5 mg PO DAILY 08/19/16 12/30/17 Esomeprazole Magnesium [Nexium 20 mg PO DAILY 12/27/17 12/30/17 24Hr] Famotidine [Pepcid] 40 mg PO DAILY 12/27/17 12/30/17 Oxybutynin Chloride [Ditropan Xl] 15 mg PO DAILY 12/27/17 12/30/17 Previous Rx's Medication Instructions Recorded Famotidine [Pepcid] 20 mg PO DAILY 30 Days #30 tablet 12/28/17 Sucralfate [Carafate] 1 gm PO QIDAC 30 Days #120 tablet 12/28/17 levoFLOXacin [Levaquin] 250 mg PO DAILY #10 tablet 01/01/18 Allergies Allergy/AdvReac Type Severity Reaction Status Date / Time Cyclobenzaprine AdvReac Confusion Verified 12/30/17 14:17 [From Flexeril] All systems ED: reviewed and negative except as stated. Constitutional: Denies: fever, chills ENT ED: Denies: congestion Cardiovascular: Denies: chest pain, palpitations, syncope Respiratory: Reports: cough, sputum production. Denies: dyspnea Gastrointestinal: Denies: abdominal pain, nausea, vomiting, diarrhea Genitourinary: Denies: urgency, dysuria, frequency Musculoskeletal: Denies: back pain, neck pain Integumentary: Denies: rash Neurological: Denies: weakness Past Medical History - Past Medical History Attestation: Yes The following information was validated with the patient. 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 history - Social History Smoking Status: Never smoker Smokeless Tobacco Status: No Alcohol use: Reports: none Drug use: Reports: none Physical Exam - General Limitations: no limitations General appearance: alert, in no apparent distress - Head Head exam: atraumatic, normocephalic, normal inspection - Eye Eye exam: Present: normal appearance, PERRL, EOMI - ENT ENT exam: normal exam, normal oropharynx, mucous membranes moist - Neck Neck exam: Present: normal inspection, full ROM, trachea midline - Chest Chest inspection: Present: normal inspection, symmetric chest wall rise - Respiratory Respiratory exam: Present: wheezes (Scant Wheezing throughout.). Absent: respiratory distress, accessory muscle use - Cardiovascular Cardiovascular exam: Present: regular rate, normal rhythm, normal heart sounds - Abdominal Exam Abdominal exam: Present: soft, Non-Tender. Absent: tenderness, distention, guarding, organomegaly - Extremities Exam Extremities exam: Present: normal inspection, full ROM, normal capillary refill. Absent: tenderness, pedal edema - Back Exam Back exam: Present: normal inspection, full ROM. Absent: tenderness - Neurological Exam Neurological exam: Present: alert, oriented X3 - Psychiatric Psychiatric exam: Present: normal affect, normal mood - Skin Skin exam: Present: warm, dry, intact, normal color. Absent: rash, cyanosis, diaphoresis, erythema Course Course Narrative: Female patient sitting tumors department complaining of a productive cough that began this morning. No fevers or chills. No history of COPD or emphysema. Is a nonsmoker. Does have a history of hypertension. This morning she began coughing up a pink candlewax consistency sputum. She denies any fevers or chills. She denies any recent illnesses. No chest pain. Has ever had this happen to her before. She does have the sputum with her and has produced several more episodes of the structures here. It is a wax-like consistency that is pink. It is in the bronchi. Appear to be a mold of them. CTA of her chest shows no signs of PE however does show some mucus plugging. I did talk to patient over with the ore trimmer section weaver. He is suggesting Zosyn and vancomycin and start patient on some steroids due to her wheezing. He states he will see the patient in the hospital. We will admit to the hospital. Patient does not appear to be in any distress at this time. - Consultations Consultation #1: I spoke with Dr Guthrie. he reccomends levaquin, 40mg Solumedrol BID and NPO status after midnight for a possible bronchoscopy tomorrow. Time: 18:27 Consultation #2: Dr Garcia accepted patient in stable condition. Time: 18:47 Vital Signs Pulse Rate 77 01/17/18 16:44 Respiratory Rate 18 01/17/18 16:44 Blood Pressure 135/72 01/17/18 16:44 O2 Sat by Pulse Oximetry 93 01/17/18 16:44 Pulse Rate 77 01/17/18 16:44 Respiratory Rate 18 01/17/18 16:44 Blood Pressure 135/72 01/17/18 16:44 O2 Sat by Pulse Oximetry 93 01/17/18 16:44 Oxygen Delivery Oxygen Delivery Room Air Medical Decision Making - Medical Records Medical records reviewed: Yes I reviewed the patient's medical records. - Lab Data Lab results reviewed: Yes I reviewed the patient's lab results. Result diagrams: 01/17/18 16:05 01/17/18 16:05 Lab Results 01/17/18 01/17/18 01/17/18 Range/Units 16:05 16:05 16:05 WBC 6.3 (4.3-11.1) K/mcL RBC 4.34 (3.82-4.97) M/mcL Hgb 12.1 (11.5-15.4) g/dL Hct 35.5 (35.3-44.9) % MCV 81.8 L (83.0-100.0) fL MCH 27.9 L (28.0-33.3) pg MCHC 34.1 (31.6-35.5) g/dL RDW 13.2 (11.5-14.5) % Plt Count 206 (140-400) K/mcL MPV 9.6 (9.4-12.4) fL Immature Gran % 0.5 (0-4) % Seg Neutrophils % 57.6 % Lymphocytes % 28.9 % Monocytes % 7.6 % Eosinophils % 4.9 % Basophils % 0.5 % Neutrophils # 3.6 (1.6-8.9) K/mcL Lymphocytes # 1.8 (0.6-4.6) K/mcL Monocytes # 0.5 (0.0-1.3) K/mcL Eosinophils # 0.3 (0.0-0.6) K/mcL Basophils # 0.0 (0.0-0.2) K/mcL Sodium 135 L (136-145) mEq/L Potassium 3.7 (3.5-5.1) mEq/L Chloride 100 (98-107) mEq/L Carbon Dioxide 25 (23-29) mEq/L BUN 17 (8-23) mg/dL Creatinine 0.68 (0.60-1.20) mg/dL Est GFR ( Amer) > 60 (> 60) Est GFR (Non-Af Amer) > 60 (> 60) BUN/Creatinine Ratio 25 (6-26) Glucose 137 H (70-105) mg/dL Calculated Osmolality 284 (280-300) Lactic Acid 0.6 (0.5-2.2) mmol/L Calcium 9.3 (8.6-10.3) mg/dL - Radiology Data Radiology results reviewed: Yes I reviewed the patient's radiology results. Chest X-Ray 01/17/18 15:21 IMPRESSION: Low lung volumes. No acute cardiopulmonary disease. D/ / Ankit Mack MD / Ankit Mack MD Interpreting Provider: Ankit Mack MD Chest CT 01/17/18 15:58 IMPRESSION: Bronchial wall thickening with mucous plugging, especially on the left, suggesting bronchitis, reactive airways disease, or aspiration. There is mild airspace opacity within the lower lungs bilaterally, somewhat greater on the left. Although atelectasis is favored, a component of pneumonia would be considered as well, especially given the airway findings. Mildly dilated ascending thoracic aorta measuring up to 4.6 cm. Continued surveillance of that is recommended. Heterogeneous and enlarged thyroid. Recommend thyroid US. Reference: J Am Afshin Radiol. 2014;12(2): 143-50 D/ / Nick Gomez MD / Nick Gomez MD Interpreting Provider: Nick Gomez MD
[2018-01-17] MEDS ORDERED: Naloxone 0.4 MG/ML INJ IVP PRN (19:42)
[2018-01-17] MEDS ORDERED: NON-FORMULARY MEDICATION 1 EACH EACH (Acetaminophen/Diphenhydramine [Acetaminophen Pm Capl PO PRN (19:53)
--- NOTE | 2018-01-17 21:09 | Internal Med History&Physical ---
Date of Encounter: 01/17/18 Time of Encounter: 21:00 Internal Medicine - H&P: HPI Chief complaint: Persistent coughing for a week History of present illness: Ms. Hollins is a 82 year old female with pmh of hypertension, dyslipidemia presenting with complaints of persistent coughing of a week's duration. Patient said she had a cold about a week ago which heralded her symptoms. She says she had been coughing up regular phlegm for about a week, but this morning she noted her she was coughing up pink waxy like phlegm which has never happened before and that 's why she came to the ER today. She denies any fever or chills , admits to subjective shortness of breath. In the ER, chest CT was done showing bronchial wall thickening with mucous plugging and mild airspace opacity. Pulmonary was consulted and she was given steroids and antibiotics Past Med Surg Social Fam HX - Past Medical History Medical history: hyperlipidemia, hypertension Additional medical history: multiple falls, L1 vertebral fx Psychiatric history: no psych history - Past Surgical History Surgical History: appendectomy, breast surgery, hysterectomy, knee replacement Additional surgical history: bilateraly knee replacement. lumpectomy to left breast - Social History Smoking Status: Never smoker Smokeless Tobacco Status: No Alcohol use: none Drug use: none - Family History Mother Adopted: No Family Member Ethnicity: Non- Living Status: Hx Family Cardiac Disorders: Yes (heart condition) Hx Family Respiratory Disorders: No Hx Family Cancer: Yes Hx Family GI Disorders: No Hx Family Endocrine Disorder: No Hx Family Neuromuscular Disorders: No Hx Family Neurologic Disorders: No Hx Family HEENT Disorders: No Hx Family Autoimmune Disorders: No Father Living Status: Hx Family Cancer: Yes Internal Medicine - H&P: Meds Aspirin [Lo-Dose Aspirin EC] 81 mg PO DAILY 08/19/16 [History] Carvedilol [Coreg] 12.5 mg PO BID 08/19/16 [History] Meclizine HCl [Verticalm] 25 mg PO DAILY 08/19/16 [History] Potassium Chloride [Klor-Con 10] 10 meq PO BID 08/19/16 [History] Simvastatin [Zocor] 10 mg PO DAILY 08/19/16 [History] amLODIPine [Norvasc] 5 mg PO DAILY 08/19/16 [History] Esomeprazole Magnesium [Nexium 24Hr] 20 mg PO DAILY 12/27/17 [History] Famotidine [Pepcid] 40 mg PO DAILY 12/27/17 [History] Oxybutynin Chloride [Ditropan Xl] 15 mg PO DAILY 12/27/17 [History] Famotidine [Pepcid] 20 mg PO DAILY 30 Days #30 tablet 12/28/17 [Rx] Sucralfate [Carafate] 1 gm PO QIDAC 30 Days #120 tablet 12/28/17 [Rx] Acetaminophen/Diphenhydramine [Acetaminophen Pm Caplet] 2 tab PO HS PRN [History] 3 Allergy/AdvReac Type Severity Reaction Status Date / Time Cyclobenzaprine AdvReac Confusion Verified 12/30/17 14:17 [From Flexeril] All Systems PM: A 10-system review of systems was performed and is negative for pertinent findings except as documented above in the HPI. - Constitutional Constitutional: fatigue, no chills, no fever(s), no night sweats - EENT Eyes: no change in vision, no discharge, no pain, no photophobia Ears: no ear discharge, no ear pain, no tinnitus Nose, mouth and throat: no dysphagia, no nasal discharge, no neck pain, no sore throat - Cardiovascular Cardiovascular ROS IM: no chest pain, no diaphoresis, no dyspnea, no lightheadedness, no palpitations, no syncope - Respiratory Respiratory: cough, dyspnea, excessive phlegm production, no wheezing - Gastrointestinal Gastrointestinal: no abdominal pain, no diarrhea, no hematemesis, no hematochezia, no melena, no nausea, no vomiting - Genitourinary Genitourinary: no change in urinary stream, no dysuria, no flank pain, no hematuria - Musculoskeletal Musculoskeletal ROS IM: no numbness, no tingling - Integumentary Integumentary IM: no rash, no unusual bruising - Neurological Neurological ROS: no confusion, no convulsions, no focal weakness, no numbness, no tingling, no tremor(s) - Hematologic/Lymphatic Hematologic/Lymphatic: no easy bruising - Constitutional Vitals: Temp Pulse Resp BP Pulse Ox 98.9 F 92 18 163/94 96 01/17/18 17:00 01/17/18 19:25 01/17/18 19:25 01/17/18 19:25 01/17/18 19:25 - Head Head exam: Present: atraumatic, normocephalic - Eye Eye exam: Present: PERRL, conjuntiva pink, sclera anicteric Pupils: Present: PERRL - Neck Neck exam general surgery: Present: supple, trachea midline. Absent: lymphadenopathy - Respiratory Respiratory exam: Present: decreased breath sounds. Absent: accessory muscle use, rales, rhonchi, wheezes - Cardiovascular Cardiovascular exam: Present: RRR, +S1, +S2. Absent: diastolic murmur, gallop, rubs, systolic murmur - GI/Abdominal GI/Abdominal exam: Present: normal bowel sounds, soft, no peritoneal signs. Absent: distended, tenderness - Extremities Exam Extremities exam: Present: warm, radial pulses palpable and symmetrical. Absent : calf tenderness, cyanotic, pedal edema - Neurological Exam Neurological exam: Present: CN II-XII intact, oriented X3, no focal deficits. Absent: pronater drift, facial droop, speech deficit - Skin Skin exam: Present: dry, intact Internal Med - H&P Results - Labs CBC & Chem 7: 01/17/18 16:05 01/17/18 16:05 - Assessment and plan (1) Bronchiectasis Current Visit: Yes Status: Acute Assessment and plan: Unclear etiology. Patient has mucous plugging with bronchial wall thickening on CT scan. started on levaquin and steroids per pulmonary recs. Pulmonary consulted and patient will likely get bronchoscopy in am. NPO from midnight Qualifiers: Bronchiectasis type: with acute exacerbation Qualified Code(s): J47.1 - Bronchiectasis with (acute) exacerbation (2) Community acquired pneumonia Current Visit: Yes Status: Acute Assessment and plan: Obtain blood cultures, urine legionella and strep antigens. Start on levaquin. CT shows bilateral lower airspace opacity Qualifiers: Qualified Code(s): J18.9 - Pneumonia, unspecified organism (3) Hypertension Current Visit: Yes Status: Acute Assessment and plan: Continue norvasc and coreg Qualifiers: Qualified Code(s): I10 - Essential (primary) hypertension (4) Dyslipidemia Current Visit: Yes Status: Acute Assessment and plan: Continue simvastatin (5) DVT prophylaxis Current Visit: Yes Status: Acute Assessment and plan: heparin sc - Time Spent With Patient Total time spent is greater than 50% in coordination of care (as documented) at patient's floor/unit and/or counseling patient:
[2018-01-17] MEDS ORDERED: Ipratropium/Albuterol Neb 3 ML IH PRN (21:21)
[2018-01-17] MEDS: Sucralfate 1 GM TABLET PO SCH (21:47)
[2018-01-18 05:10] LABS: Basophils % 0.2 %; Eosinophils % 0.4 %; Hematocrit 35.6 % (35.3-44.9); Hemoglobin 12.2 g/dL (11.5-15.4); Immature Granulocytes % 0.4 % (0-4); Lymphocytes # 0.8 K/mcL (0.6-4.6); Lymphocytes % 14.8 %; Mean Corpuscular HGB Conc 34.3 g/dL (31.6-35.5); Mean Corpuscular Hemoglobin 28.4 pg (28.0-33.3); Mean Corpuscular Volume 82.8 fL (83.0-100.0); Mean Platelet Volume 10.7 fL (9.4-12.4); Monocytes # 0.1 K/mcL (0.0-1.3); Monocytes % 1.3 %; Neutrophils # 4.4 K/mcL (1.6-8.9); Platelet Count 199 K/mcL (140-400); Red Cell Distribution Width 13.1 % (11.5-14.5); Segmented Neutrophils % 82.9 %
[2018-01-18 05:29] LABS: BUN/Creatinine Ratio 23 (6-26); Blood Urea Nitrogen 15 mg/dL (8-23); Carbon Dioxide 24 mEq/L (23-29); Chloride 99 mEq/L (98-107); Glucose 146 mg/dL (70-105); Magnesium 1.5 mg/dL (1.6-2.6); Osmolality,Calculated 281 (280-300); Potassium 3.9 mEq/L (3.5-5.1); Sodium 134 mEq/L (136-145); eGFR For Non-African Americans > 60 (> 60)
[2018-01-18] MEDS: *HR* Heparin 5,000 UNIT/ML VIAL SQ SCH ×2 (06:14→18:46)
[2018-01-18] MEDS: MethylPREDNISolone 40 MG/ML VIAL IVP SCH ×2 (06:14→18:46)
--- NOTE | 2018-01-18 09:19 | Internal Med Progress Note ---
<Andrew Hernandez - Last Filed: 01/18/18 12:39> Hospitalist Progress Note - Encounter Date of Encounter: 01/18/18 Time of Encounter: 09:18 - Subjective Interval History: Patient seen and examined at bedside; reports feeling much better than she did on admission. No shortness of breath, cough, chest pain, chest tightness, or wheezes. Patient was seen earlier in the day by pulmonology; patient is okay to discharge from their standpoint. - Exam Vitals: Temp Pulse Resp BP Pulse Ox 98.3 F 83 14 165/87 97 01/18/18 07:29 01/18/18 07:29 01/18/18 07:29 01/18/18 07:29 01/18/18 07:29 Exam: Respiratory exam: decreased breath sounds. No accessory muscle use, rales, rhonchi, wheezes Cardiovascular exam: RRR, +S1, +S2. No diastolic murmur, gallop, rubs, systolic murmur GI/Abdominal exam: normal bowel sounds, soft, no peritoneal signs Extremities exam: warm, radial pulses palpable and symmetrical Neurological exam: CN II-XII intact, oriented X3, no focal deficits Skin exam: dry, intact - Assessment and Plan (1) Bronchiectasis Status: Acute Assessment and Plan: Presented with cough; unknown causative organism at this time - CT scan demonstrated because plugging with bronchial wall thickening - Started on Levaquin and Solu-Medrol - Pulmonology has been consulted; possible bronchoscopy today Plan: - Continue Levaquin, day 2 - Solu-Medrol 40 mg IV every 12 - DuoNeb (2) Community acquired pneumonia Status: Acute Assessment and Plan: Causative organism unknown at this time - CT scan demonstrated bilateral lower airspace opacity - Blood and sputum cultures are pending - Strep and Legionella urine antigen pending Plan: - Continue Levaquin, day 2 (3) Hypertension Status: Acute Assessment and Plan: - Continue norvasc and coreg (4) Dyslipidemia Status: Acute Assessment and Plan: - Continue simvastatin (5) DVT prophylaxis Status: Acute Assessment and Plan: - Heparin SQ - Time Spent with Patient Total time spent is greater than 50% in coordination of care (as documented) at patient's floor/unit and/or counseling patient: Internal Medicine: Result - Labs CBC & Chem 7: 01/18/18 01:01 01/18/18 01:01 Labs: Short CBC 01/18/18 Range/Units 01:01 WBC 5.3 (4.3-11.1) K/mcL Hgb 12.2 (11.5-15.4) g/dL Hct 35.6 (35.3-44.9) % Plt Count 199 (140-400) K/mcL Neutrophils # 4.4 (1.6-8.9) K/mcL BMP 01/18/18 01:01 Sodium 134 L Potassium 3.9 Chloride 99 Carbon Dioxide 24 BUN 15 Creatinine 0.64 Glucose 146 H Calcium 9.0 Consult Discharge Plan - Plan Instructions: Levofloxacin (By mouth), Fall Prevention (DC), Pneumonia (DC), Pneumonia (GEN), Pneumonia, Specialties Operator (GEN), Community-Acquired Pneumonia , Specialties Operator (GEN) Referrals: Cem Dorantes MD [Primary Care Provider] - 01/21/18 Prescriptions: Levofloxacin [Levaquin] 750 mg PO DAILY #3 tablet <Delia Hale - Last Filed: 01/20/18 01:29> Hospitalist Progress Note - Encounter Date of Encounter: 01/20/18 - Exam Vitals: Temp Pulse Resp BP Pulse Ox 98.3 F 70 18 142/91 94 01/19/18 09:23 01/19/18 12:00 01/19/18 12:00 01/19/18 12:00 01/19/18 13:49 - Assessment and Plan (1) Bronchiectasis Status: Acute (2) Community acquired pneumonia Status: Acute (3) Hypertension Status: Acute (4) Dyslipidemia Status: Acute (5) DVT prophylaxis Status: Acute - Summary of Assessment and Plan Summary of Assessment and Plan: I examined this patient and my medical decision-making was reviewed with the Resident Physician. I agree with the documented findings, disposition and treatment plan as described except to the extent set forth below. - Time Spent with Patient Total time spent is greater than 50% in coordination of care (as documented) at patient's floor/unit and/or counseling patient: Internal Medicine: Result - Labs CBC & Chem 7: 01/18/18 01:01 01/18/18 01:01 <Andrew Hernandez - Last Filed: 01/18/18 12:39> (1) Bronchiectasis Qualifiers: Bronchiectasis type: with acute exacerbation Qualified Code(s): J47.1 - Bronchiectasis with (acute) exacerbation <Delia Hale - Last Filed: 01/20/18 01:29> (1) Bronchiectasis Qualifiers: Bronchiectasis type: with acute exacerbation Qualified Code(s): J47.1 - Bronchiectasis with (acute) exacerbation (2) Community acquired pneumonia Qualifiers: Laterality: unspecified laterality Qualified Code(s): J18.9 - Pneumonia, unspecified organism (3) Hypertension Qualifiers: Qualified Code(s): I10 - Essential (primary) hypertension
--- NOTE | 2018-01-18 09:39 | Pulmonology Progress Note ---
Date of Encounter: 01/18/18 Objective PUL Vital signs: Last Vital Signs Temp 98.3 F 01/18/18 07:29 Pulse 83 01/18/18 07:29 Resp 14 01/18/18 07:29 BP 165/87 01/18/18 07:29 Pulse Ox 97 01/18/18 07:29 Results - Laboratory Findings CBC and BMP: 01/18/18 01:01 01/18/18 01:01 Abnormal lab findings: Abnormal lab results MCV 82.8 fL (83.0-100.0) L 01/18/18 01:01 Sodium 134 mEq/L (136-145) L 01/18/18 01:01 Glucose 146 mg/dL (70-105) H 01/18/18 01:01 Magnesium 1.5 mg/dL (1.6-2.6) L 01/18/18 01:01 - Microbiology Findings Microbiology Findings: Microbiology, Last 48 Hours 01/17/18 21:45 Blood Culture - Preliminary Peripheral Venipuncture Culture is incubating and being continuously monitored for growth. Final report to follow. 01/17/18 21:45 Blood Culture - Preliminary Peripheral Venipuncture Culture is incubating and being continuously monitored for growth. Final report to follow. - Clinical Findings Intake & Output: Intake & Output 01/17/18 01/18/18 01/18/18 23:59 07:59 15:59 Intake Total 0 / 0 Output Total 350 / 350 Balance -350 / -350 Weight 86.6 kg Consult Discharge Plan - Plan Referrals: Cem Dorantes MD [Primary Care Provider] -
--- NOTE | 2018-01-18 09:40 | Pulmonology Consult Note ---
<RicardoManny lerner M - Last Filed: 01/18/18 09:56> Date of Encounter: 01/18/18 Medications and Allergies Aspirin [Lo-Dose Aspirin EC] 81 mg PO DAILY 08/19/16 [History] Carvedilol [Coreg] 12.5 mg PO BID 08/19/16 [History] Meclizine HCl [Verticalm] 25 mg PO DAILY 08/19/16 [History] Potassium Chloride [Klor-Con 10] 10 meq PO BID 08/19/16 [History] Simvastatin [Zocor] 10 mg PO DAILY 08/19/16 [History] amLODIPine [Norvasc] 5 mg PO DAILY 08/19/16 [History] Esomeprazole Magnesium [Nexium 24Hr] 20 mg PO DAILY 12/27/17 [History] Famotidine [Pepcid] 40 mg PO DAILY 12/27/17 [History] Oxybutynin Chloride [Ditropan Xl] 15 mg PO DAILY 12/27/17 [History] Famotidine [Pepcid] 20 mg PO DAILY 30 Days #30 tablet 12/28/17 [Rx] Sucralfate [Carafate] 1 gm PO QIDAC 30 Days #120 tablet 12/28/17 [Rx] Acetaminophen/Diphenhydramine [Acetaminophen Pm Caplet] 2 tab PO HS PRN [History] Levofloxacin [Levaquin] 750 mg PO DAILY #3 tablet 01/18/18 [Rx] 3 Allergy/AdvReac Type Severity Reaction Status Date / Time Cyclobenzaprine AdvReac Confusion Verified 12/30/17 14:17 [From Flexeril] All Systems: The remainder of the systems were reviewed and are negative Physical Examination Vital Signs: Vital Signs, Last 4 Hours Temp Pulse Resp BP Pulse Ox 01/18/18 07:29 98.3 F 83 14 165/87 97 Results - Laboratory Findings CBC and BMP: 01/18/18 01:01 01/18/18 01:01 Abnormal lab findings: Abnormal lab results MCV 82.8 fL (83.0-100.0) L 01/18/18 01:01 Sodium 134 mEq/L (136-145) L 01/18/18 01:01 Glucose 146 mg/dL (70-105) H 01/18/18 01:01 Magnesium 1.5 mg/dL (1.6-2.6) L 01/18/18 01:01 - Microbiology Findings Microbiology Findings: Microbiology, Last 48 Hours 01/17/18 21:45 Blood Culture - Preliminary Peripheral Venipuncture Culture is incubating and being continuously monitored for growth. Final report to follow. 01/17/18 21:45 Blood Culture - Preliminary Peripheral Venipuncture Culture is incubating and being continuously monitored for growth. Final report to follow. - Clinical Findings Intake & Output: Intake & Output 01/17/18 01/18/18 01/18/18 23:59 07:59 15:59 Intake Total 0 / 0 Output Total 350 / 350 Balance -350 / -350 Weight 86.6 kg Consult Discharge Plan - Plan Referrals: Cem Dorantes MD [Primary Care Provider] - Prescriptions: Levofloxacin [Levaquin] 750 mg PO DAILY #3 tablet - Attending Attestation I examined this patient and my medical decision-making was reviewed with the Resident Physician. I agree with the documented findings, disposition and treatment plan as described except to the extent set forth below. Patient seen and examined. Labs, radiology, chart personally reviewed. Agree with resident's history and physical, assessment, plan with following comments: IDENTITY ACCESS MANAGEMENT ARCHITECT: Patient follows commands, Pulmonary: Acceptable oxygenation and ventilation and explained to the patient this could be from bronchitis and I suspect there might be bronchiectasis and explained to patient about she will need to inspection and bronchoscopy. A bronchoscopy is recommended. The procedure , risks, benefits, complications, and expected outcomes have been reviewed. Benefits of diagnosis, as well as risks to include bleeding, infection, pneumothorax which may require surgical intervention, and in a small population. The patient is aware that sometimes test is nondiagnostic. Discussed with patient and agrees to proceed. Continue empiric antibiotics and airway clearance Cardiovascular: stable <Luis Harris - Last Filed: 01/18/18 13:23> Date of Encounter: 01/18/18 Time of Encounter: 09:00 Assessment and Plan (1) Bronchitis Current Visit: Yes Status: Acute Acute bronchitis with associated mucus plugging CT demonstrates bronchial wall thickening with mucous plugging, L > R Etiology is unclear, however history is consistent with bronchial irritation Bronchoscopy is indicated for inspection of airway in setting of mucous plugging Recommendations Continue Solu-medrol, levaquin Maintain NPO for Bronchoscopy later this morning Duonebs as needed History of Present Illness Consult date: 01/17/18 Requesting physician: Anastacia Leonardo Reason for consult: other (Mucous plugging) Chief complaint: Coughing up waxy stuff History of present illness: Ms. Hollins is an 82-year-old female with medical history including hypertension , hyperlipidemia, multiple falls, who presents to the hospital for persisting cough of 1 week duration. Significantly, the patient was recently admitted to the hospital on 12/20/17 for hyponatremia following another recent admission for GI bleed and UTI. At this time, the patient says that she has been coughing for approximately 1 week and has been unremitting. As of approximately 24 hours ago, the patient's cough became productive with a candlewax-like sputum which is whitish pink and appearance. She has never expands anything like this. She denies any pain, shortness of breath, fevers or chills. Nothing seemed to make this better or worse. In the ED, a CTA of the chest was ordered which demonstrated mild airspace opacities within the lower lung bases bilaterally as well as bronchial wall thickening with mucus plugging especially on the left suggesting bronchitis. She did have episodes in the ED of coughing up this wax-like material which apparently did appear to resemble molds of her bronchial tree, suggesting that they may have been mucous plugs. The patient was started on Levaquin and Solu-Medrol, and she was admitted for observation. Past Med Surg Social Fam HX - Past Medical History Medical history: hyperlipidemia, hypertension Additional medical history: multiple falls, L1 vertebral fx Psychiatric history: no psych history - Past Surgical History Surgical History: appendectomy, breast surgery, hysterectomy, knee replacement Additional surgical history: bilateraly knee replacement. lumpectomy to left breast - Social History Smoking Status: Never smoker Smokeless Tobacco Status: No Alcohol use: none Drug use: none - Family History Mother Adopted: No Family Member Ethnicity: Non- Living Status: Age at : 80 Cause of : ID Hx Family Cardiac Disorders: Yes (heart condition) Hx Family Respiratory Disorders: No Hx Family Cancer: Yes Hx Family GI Disorders: No Hx Family Endocrine Disorder: No Hx Family Neuromuscular Disorders: No Hx Family Neurologic Disorders: No Hx Family HEENT Disorders: No Hx Family Autoimmune Disorders: No Father Living Status: Age at : 75 Cause of : lung cancer Hx Family Cancer: Yes All Systems: The remainder of the systems were reviewed and are negative Review of Systems: Constitutional: Denies fevers, chills, weight loss, generalized fatigue Head/Neck: Denies PLEITEZ, neck stiffness EENT: Denies vision changes/blurriness, rhinorrhea, congestion, sore throat CVS: Denies chest pain, palpitations, MATHEW, orthopnea, edema, PND Pulm: Denies SOB, hemoptysis, wheezing. Admits to cough with production of wax- like sputum GI: Denies abdominal pain, nausea, vomiting, diarrhea, constipation, melena, hematemasis : Denies dysuria, increased frequency, urgency, hematuria Heme: Denies ease of bleeding or bruising MSK: Denies joint pain, limited ROM Skin: Denies rashes, ulcers, color changes Neuro: Denies PLEITEZ, paresthesias, focal deficits, ataxia Physical Examination Vital Signs: Vital Signs, Last 4 Hours Temp Pulse Resp BP Pulse Ox 01/18/18 07:29 98.3 F 83 14 165/87 97 Gen: Vitals noted. No acute distress. HEENT: Normocephalic, atraumatic Neck: Supple. No adenopathy. Cardiac: RRR, no murmur, +S1/S2 Pulmonary: CTA bilaterally, no wheezes, rales or rhonchi, equal chest expansion Abdomen: soft, nontender, no guarding Extremities: no BLE edema, nontender calf, no cyanosis or clubbing Psych: Appropriate mood and behavior Results - Laboratory Findings CBC and BMP: 01/18/18 01:01 01/18/18 01:01 Abnormal lab findings: Abnormal lab results MCV 82.8 fL (83.0-100.0) L 01/18/18 01:01 Sodium 134 mEq/L (136-145) L 01/18/18 01:01 Glucose 146 mg/dL (70-105) H 01/18/18 01:01 Magnesium 1.5 mg/dL (1.6-2.6) L 01/18/18 01:01 - Microbiology Findings Microbiology Findings: Microbiology, Last 48 Hours 01/17/18 21:45 Blood Culture - Preliminary Peripheral Venipuncture Culture is incubating and being continuously monitored for growth. Final report to follow. 01/17/18 21:45 Blood Culture - Preliminary Peripheral Venipuncture Culture is incubating and being continuously monitored for growth. Final report to follow. - Clinical Findings Intake & Output: Intake & Output 01/17/18 01/18/18 01/18/18 23:59 07:59 15:59 Intake Total 0 / 0 Output Total 350 / 350 Balance -350 / -350 Weight 86.6 kg
[2018-01-18] MEDS: Sucralfate 1 GM TABLET PO SCH ×4 (09:49→20:29)
[2018-01-18] MEDS: Aspirin Enteric Coated 81 MG Tablet PO SCH (09:52)
[2018-01-18] MEDS: amLODIPine 5 MG TABLET PO SCH (09:52)
[2018-01-18] MEDS ORDERED: *HR* FentaNYL (PF) 100 MCG/2 ML VIAL ONE (10:11)
[2018-01-18] MEDS ORDERED: *HR* Midazolam HCl 5 MG/5 ML VIAL IVP ONE ×2 (10:11→10:46)
[2018-01-18] MEDS ORDERED: Lidocaine Viscous Oral Soln 15 ML SOLUTION ONE (10:11)
[2018-01-18] MEDS ORDERED: Albuterol 2.5 MG/3 ML NEBULIZER IH ONE (10:46)
[2018-01-18] MEDS ORDERED: Tetracaine/Benzocaine/Butamben 200MG/SPRAY (100SPY/BOT) MM ONE (10:46)
[2018-01-18] MEDS ORDERED: *HR* EPINEPHrine 1 MG/10 ML SYRINGE INTRATRACH PRN (10:46)
[2018-01-18] MEDS ORDERED: *HR* FentaNYL (PF) 100 MCG/2 ML VIAL IVP ONE (10:46)
[2018-01-18] MEDS ORDERED: Lidocaine Viscous Oral Soln 15 ML SOLUTION MM ONE (10:46)
--- NOTE | 2018-01-18 10:48 | Pre-Sedation Evaluation ---
Pre-sedation evaluation - Pre-sedation checklist Date of procedure: 01/18/18 Procedure: Bronchoscopy Recent Vitals: Last Vital Signs Temp 98.3 F 01/18/18 09:56 Pulse 83 01/18/18 09:56 Resp 14 01/18/18 09:56 BP 165/87 01/18/18 09:56 Pulse Ox 97 01/18/18 09:56 H&P (including ROS) documented in medical record: Yes Previous reaction to sedatives/anesthetics: Yes; explain in comment Dietary Status: NPO after Midnight Dentition: full dentition, dentures removed Possible difficult airway: No ASA Classification *see protocol: CLASS II-Mild systemic disease Plan of Care: Pt appropriate candidate for procedure/moderate/conscious sedation , Risks/benefits of procedure/sedation discussed w/ patient/family Cardiac Registry (Cardio Only) - Functional Capacity - Clincal Frailty Scale
[2018-01-18] MEDS ORDERED: 0.9 % Sodium Chloride 1,000 ML IVC SCH (11:00)
[2018-01-18 12:00] LABS: Source of Body Fluid LLL BAL; Source of Body Fluid RLL BAL
--- NOTE | 2018-01-18 12:46 | Discharge Summary ---
<Andrew Hernandez - Last Filed: 01/18/18 12:48> Orders not resulted at time of discharge: Pending orders 01/17/18 21:19 Culture,Sputum with Gram Stain [RM] Routine 01/17/18 21:25 Legionella Antigen [RM] Routine Streptococcal pneumoniae urin antigen [S. Pneumoniae Antigen] [RM] Routine 01/17/18 21:45 Culture,Blood [BC] Routine 01/18/18 11:23 Cytology [PTH] Routine 01/18/18 11:57 AFB Culture, Respiratory [TB] Routine AFB Culture, Respiratory [TB] Routine Cell Count w Diff, Body Fluid [BF] Routine Cell Count w Diff, Body Fluid [BF] Routine Culture,Respiratory [RM] Routine Culture,Respiratory [RM] Routine Fungal Culture [MYC] Routine Fungal Culture [MYC] Routine Gram Stain [RM] Routine Gram Stain [RM] Routine Date of Encounter: 01/18/18 Time of Encounter: 12:40 - Discharge Diagnosis (1) Bronchiectasis Priority: Primary Status: Acute Qualifiers: Bronchiectasis type: with acute exacerbation Qualified Code(s): J47.1 - Bronchiectasis with (acute) exacerbation (2) Community acquired pneumonia Priority: Secondary Status: Acute Qualifiers: Qualified Code(s): J18.9 - Pneumonia, unspecified organism (3) Hypertension Priority: Secondary Status: Acute Qualifiers: Qualified Code(s): I10 - Essential (primary) hypertension (4) Dyslipidemia Priority: Secondary Status: Acute (5) DVT prophylaxis Priority: Secondary Status: Acute Hospital course: Ms. Hollins is a 82 year old female who presented to [facility] ED with a chief complaint of a cough of one week's duration. The patient had a cold approximately one week prior to presentation. She reported that she had been coughing up phlegm for approximately one week. There was a pink tint to her phlegm, which she states was what prompted her to come to the ER. When she came in,'s chest CT was performed, which demonstrated bronchial wall thickening with mucous plugging, as well as mild airspace opacity. Patient was started on both steroids and Levaquin. Pulmonology was consulted due to CT findings. Patient was seen by pulmonology on 01/18, further recommendations patient was okay to discharge. She received a total of 2 days worth of Levaquin. He will receive Solu-Medrol 40 mg IV every 12. She was seen and examined at bedside on date of discharge; reports that she feels much better than she did on presentation. She denies having any cough, chest pain, shortness of breath, chest tightness, increased sputum production, fever, chills, nausea, or vomiting. She has no further complaints at this time. - Time Spent with Patient Total time spent providing and/or coordinating discharge services: Greater than 30 minutes (41 minutes) - Discharge Medications Prescriptions: Levofloxacin [Levaquin] 750 mg PO DAILY #3 tablet Home Medications: Aspirin [Lo-Dose Aspirin EC] 81 mg PO DAILY 08/19/16 [History] Carvedilol [Coreg] 12.5 mg PO BID 08/19/16 [History] Meclizine HCl [Verticalm] 25 mg PO DAILY 08/19/16 [History] Potassium Chloride [Klor-Con 10] 10 meq PO BID 08/19/16 [History] Simvastatin [Zocor] 10 mg PO DAILY 08/19/16 [History] amLODIPine [Norvasc] 5 mg PO DAILY 08/19/16 [History] Esomeprazole Magnesium [Nexium 24Hr] 20 mg PO DAILY 12/27/17 [History] Famotidine [Pepcid] 40 mg PO DAILY 12/27/17 [History] Oxybutynin Chloride [Ditropan Xl] 15 mg PO DAILY 12/27/17 [History] Famotidine [Pepcid] 20 mg PO DAILY 30 Days #30 tablet 12/28/17 [Rx] Sucralfate [Carafate] 1 gm PO QIDAC 30 Days #120 tablet 12/28/17 [Rx] Acetaminophen/Diphenhydramine [Acetaminophen Pm Caplet] 2 tab PO HS PRN [History] Levofloxacin [Levaquin] 750 mg PO DAILY #3 tablet 01/18/18 [Rx] Allergies/Adverse Reactions: 3 Allergy/AdvReac Type Severity Reaction Status Date / Time Cyclobenzaprine AdvReac Confusion Verified 12/30/17 14:17 [From Flexeril] Date of admission: 01/17/18 20:38 Primary care physician: Cem Dorantes MD Discharging clinician: Andrew Hernandez Anticipated date of discharge: 01/18/18 - Constitutional Vitals: Temp Pulse Resp BP Pulse Ox 97.8 F 88 16 107/75 96 01/18/18 11:36 01/18/18 11:36 01/18/18 11:36 01/18/18 11:36 01/18/18 11:36 - Other Additional findings: Respiratory exam: decreased breath sounds. No accessory muscle use, rales, rhonchi, wheezes Cardiovascular exam: RRR, +S1, +S2. No diastolic murmur, gallop, rubs, systolic murmur GI/Abdominal exam: normal bowel sounds, soft, no peritoneal signs Extremities exam: warm, radial pulses palpable and symmetrical Neurological exam: CN II-XII intact, oriented X3, no focal deficits Skin exam: dry, intact - Patient Status Disposition: Transfer SNF Condition: Good Overall status at discharge: patient is progressing back to baseline - Discharge Instructions Follow Up With: Cem Dorantes MD [Primary Care Provider] - - Diet and Activity Activity: increase activity as tolerated Diet: advance to your usual diet <Delia Hale - Last Filed: 01/18/18 18:16> Orders not resulted at time of discharge: Pending orders 01/17/18 21:19 Culture,Sputum with Gram Stain [RM] Routine 01/17/18 21:25 Legionella Antigen [RM] Routine Streptococcal pneumoniae urin antigen [S. Pneumoniae Antigen] [RM] Routine 01/17/18 21:45 Culture,Blood [BC] Routine 01/18/18 11:23 Cytology [PTH] Routine 01/18/18 11:57 AFB Culture, Respiratory [TB] Routine AFB Culture, Respiratory [TB] Routine Culture,Respiratory [RM] Routine Culture,Respiratory [RM] Routine Fungal Culture [MYC] Routine Fungal Culture [MYC] Routine Gram Stain [RM] Routine Gram Stain [RM] Routine Date of Encounter: 01/18/18 - Discharge Diagnosis (1) Bronchiectasis Status: Acute Qualifiers: Bronchiectasis type: with acute exacerbation Qualified Code(s): J47.1 - Bronchiectasis with (acute) exacerbation (2) Community acquired pneumonia Status: Acute Qualifiers: Laterality: unspecified laterality Qualified Code(s): J18.9 - Pneumonia, unspecified organism (3) Hypertension Status: Acute Qualifiers: Qualified Code(s): I10 - Essential (primary) hypertension (4) Dyslipidemia Status: Acute (5) DVT prophylaxis Status: Acute Hospital course: Ms. Hollins is a 82 year old female - Time Spent with Patient Total time spent providing and/or coordinating discharge services: Date of admission: 01/17/18 20:38 Primary care physician: Cem Dorantes MD - Constitutional Vitals: Temp Pulse Resp BP Pulse Ox 97.5 F L 90 16 109/74 96 01/18/18 16:44 01/18/18 16:44 01/18/18 16:44 01/18/18 16:44 01/18/18 16:44 - Attending Attestation I examined this patient and my medical decision-making was reviewed with the Resident Physician. I agree with the documented findings, disposition and treatment plan as described except to the extent set forth below.
--- NOTE | 2018-01-18 13:02 | Physician Discharge Referral ---
ExtendedCare Referral Info Institutional Level of Care: Skilled - Diagnosis (1) Bronchiectasis Priority: Primary Status: Acute (2) Community acquired pneumonia Priority: Secondary Status: Acute (3) Hypertension Priority: Secondary Status: Acute (4) Dyslipidemia Priority: Secondary Status: Acute (5) DVT prophylaxis Priority: Secondary Status: Acute - Transfer Medications Prescriptions: Levofloxacin [Levaquin] 750 mg PO DAILY #3 tablet Home Medications: Aspirin [Lo-Dose Aspirin EC] 81 mg PO DAILY 08/19/16 [History] Carvedilol [Coreg] 12.5 mg PO BID 08/19/16 [History] Meclizine HCl [Verticalm] 25 mg PO DAILY 08/19/16 [History] Potassium Chloride [Klor-Con 10] 10 meq PO BID 08/19/16 [History] Simvastatin [Zocor] 10 mg PO DAILY 08/19/16 [History] amLODIPine [Norvasc] 5 mg PO DAILY 08/19/16 [History] Esomeprazole Magnesium [Nexium 24Hr] 20 mg PO DAILY 12/27/17 [History] Famotidine [Pepcid] 40 mg PO DAILY 12/27/17 [History] Oxybutynin Chloride [Ditropan Xl] 15 mg PO DAILY 12/27/17 [History] Famotidine [Pepcid] 20 mg PO DAILY 30 Days #30 tablet 12/28/17 [Rx] Sucralfate [Carafate] 1 gm PO QIDAC 30 Days #120 tablet 12/28/17 [Rx] Acetaminophen/Diphenhydramine [Acetaminophen Pm Caplet] 2 tab PO HS PRN [History] Levofloxacin [Levaquin] 750 mg PO DAILY #3 tablet 01/18/18 [Rx] Allergies/Adverse Reactions: 3 Allergy/AdvReac Type Severity Reaction Status Date / Time Cyclobenzaprine AdvReac Confusion Verified 12/30/17 14:17 [From Flexeril] - Respiratory Orders Smoking Cessation: Smoking cessation has been advised. For more information, call the [place] Tobacco Quit Line at 6-779-LLGF-NOW. CERTIFICATION: I certify that the transfer of the above named patient to an Extended Care Facility is necessary for the continuing treatment of the diagnosis listed. The above information is true and accurate reflection of patient's current condition. Confidential - Redisclosure prohibited without a patient's written consent.
[2018-01-18 16:26] LABS: Appearance of Body Fluid Cloudy (Clear); Volume of Body Fluid 12 mL
[2018-01-18 16:27] LABS: Appearance of Body Fluid Cloudy (Clear); Volume of Body Fluid 14 mL
[2018-01-18] MEDS ORDERED: Levofloxacin 750 MG/150 ML 750 MG/150 ML BAG IVPB SCH (18:00)
[2018-01-19] MEDS: MethylPREDNISolone 40 MG/ML VIAL IVP SCH (05:26)
[2018-01-19] MEDS: *HR* Heparin 5,000 UNIT/ML VIAL SQ SCH (05:26)
[2018-01-19] MEDS: amLODIPine 5 MG TABLET PO SCH (09:18)
[2018-01-19] MEDS: Aspirin Enteric Coated 81 MG Tablet PO SCH (09:18)
[2018-01-19] MEDS: Sucralfate 1 GM TABLET PO SCH (09:19)
--- NOTE | 2018-01-19 11:49 | Event Note ---
<Andrew Hernandez - Last Filed: 01/19/18 11:46> Date of Encounter: 01/19/18 Time of Encounter: 10:00 Patient was seen and examined at bedside this morning. She states that she is feeling well today. She denies having any difficulty swallowing. Patient was seen by pulmonology; she has been cleared for discharge. She is currently satting at 96% on 2 L of oxygen. Denies having any difficulty breathing, chest pain, chest tightness, cough, congestion, or sputum production. She reports that she slept well last night. Patient is not currently in any acute distress. Cardiac exam is unremarkable, regular rate and rhythm without murmurs rubs or gallops. Patient's respiratory exam is significant for decreased breath sounds bilaterally, but no wheezes, rales, or rhonchi. Patient denies having any pain. She is stable for discharge today. <Delia Hale - Last Filed: 01/19/18 17:32> Date of Encounter: 01/19/18 I examined this patient and my medical decision-making was reviewed with the Resident Physician. I agree with the documented findings, disposition and treatment plan as described except to the extent set forth below.
[2018-01-19 13:23] VITALS: BP 142/91
== END 2018-01-19 14:11 ==
LOC: 2NENU 15:17 → EMEROO 15:17 → 2NENU 21:04
PROVIDERS: ADMIT Internal Medicine; ATTEND Internal Medicine

== ENCOUNTER 2018-11-11 17:10 | Observation (INO) ==
[2018-11-11 18:05] LABS: Basophils % 0.5 %; Eosinophils # 0.3 K/mcL (0.0-0.6); Eosinophils % 5.7 %; Hematocrit 38.7 % (35.3-44.9); Hemoglobin 12.8 g/dL (11.5-15.4); Immature Granulocytes % 0.4 % (0-4); Lymphocytes # 1.9 K/mcL (0.6-4.6); Lymphocytes % 33.2 %; Mean Corpuscular HGB Conc 33.1 g/dL (31.6-35.5); Mean Corpuscular Hemoglobin 27.8 pg (28.0-33.3); Mean Corpuscular Volume 84.1 fL (83.0-100.0); Mean Platelet Volume 9.9 fL (9.4-12.4); Monocytes # 0.6 K/mcL (0.0-1.3); Monocytes % 11.3 %; Neutrophils # 2.7 K/mcL (1.6-8.9); Platelet Count 200 K/mcL (140-400); Segmented Neutrophils % 48.9 %
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
[2018-11-11 18:24] LABS: Alanine Aminotransferase 9 Units/L (7-52); Albumin/Globulin Ratio 1.4 (1.1-2.2); Alkaline Phosphatase 205 Units/L (34-104); Aspartate Amino Transferase 20 Units/L (13-39); BUN/Creatinine Ratio 34 (6-26); Bilirubin,Direct 0.1 mg/dL (0.0-0.2); Bilirubin,Indirect 0.3 mg/dL (0.0-1.2); Bilirubin,Total 0.4 mg/dL (0.3-1.0); Blood Urea Nitrogen 24 mg/dL (8-23); Calcium 9.1 mg/dL (8.6-10.3); Carbon Dioxide 27 mEq/L (23-29); Chloride 101 mEq/L (98-107); Globulin 2.9 g/dL (2.4-3.5); Glucose 95 mg/dL (70-105); Magnesium 1.7 mg/dL (1.6-2.6); Osmolality,Calculated 284 (280-300); Potassium 4.2 mEq/L (3.5-5.1); Sodium 135 mEq/L (136-145); Total Protein 6.9 g/dL (6.4-8.9); Troponin I < 0.03 ng/mL (< 0.04); eGFR For Non-African Americans > 60 (> 60)
[2018-11-11 20:16] LABS: Bilirubin,Urine Negative (Negative); Blood,Urine Large (Negative); Clarity,Urine Cloudy (Clear); Color,Urine Yellow (Yellow); Glucose,Urine (UA) Normal (Normal); Ketones,Urine Negative (Negative); Leukocyte Esterase,Urine Large (Negative); Nitrite,Urine Negative (Negative); PH,Urine 7.5 pH Units (5.0-8.0); Protein,Urine Trace mg/dL (Neg-Trace); Specific Gravity,Urine < 1.005 (1.010-1.025); Urobilinogen,Urine Normal (Normal)
[2018-11-11 20:19] LABS: Bacteria,Urine Few per hpf (None-Few); RBC,Urine TNTC per hpf (0-3); Squamous Epithelial Cell,Urine Moderate per lpf (None-Few); WBC,Urine 50-100 per hpf (0-3)
[2018-11-12] MEDS ORDERED: Naloxone 0.4 MG/ML INJ IVP PRN (01:16)
--- NOTE | 2018-11-12 01:32 | Internal Med History&Physical ---
Date of Encounter: 11/12/18 Time of Encounter: 01:00 Internal Medicine - H&P: HPI Chief complaint: Frequent falls Admitted From: Emergency Dept Plans for Post Hospital Care: Home History of present illness: Ms. Hollins is a 83 year old female Patient presented to the emergency room for frequent falls and weakness. She is a resident at a assisted-living facility, and has had multiple falls. She had presented earlier to the emergency room prior to this admission for a fall resulting in hitting her head. The CT at that time was negative for acute abnormality. Because of her inability to ambulate even with her walker, the assisted-living facility was unable to continue to take care of the patient. In the emergency room patient's In the emergency room patient's initial vital signs were within normal limits. CBC and BMP were also within normal limits. A urinalysis was performed that showed large blood, large leukocyte esterase and 50-100 white blood cells. Repeat imaging was performed including chest x-ray, pelvic x-ray and spine CT of the cervical, thoracic and lumbar regions. Results are below, with note of a fracture of T4 with approximately 33% anterior wedge compression. She also was shown to have subacute fractures of the left 4-10 ribs. As well as degenerative changes, and an ascending thoracic aortic aneurysm measuring 4.7 cm. An EKG was performed that showed sinus rhythm with no ischemic changes. She was admitted to the hospital for further management. Upon my assessment, patient is resting comfortably in the hospital bed in no acute distress. She denies chest pain, abdominal pain, nausea, vomiting, diarrhea and constipation. She indicates that she has had trouble walking, uses a walker but still will sometimes fall. Several weeks ago she even fell in the bathroom hitting her head. She was not able to walk which is why the ambulance was called to bring her to the emergency department. She indicates that she has a family history of cancer, with her mother having stomach cancer and her father having lung cancer. She has a brother with heart disease and a sister with diabetes. She is DNR/DNI. Past Med Surg Social Fam HX - Past Medical History Medical history: arthritis, hyperlipidemia, hypertension, osteoporosis Additional medical history: multiple falls, L1 vertebral fx Psychiatric history: no psych history - Past Surgical History Surgical History: appendectomy, hysterectomy, knee replacement Additional surgical history: bilateraly knee replacement. lumpectomy to left breast - Social History Smoking Status: Never smoker Smokeless Tobacco Status: No Alcohol use: none Drug use: none - Family History Mother Adopted: No Family Member Ethnicity: Non- Living Status: Hx Family Cardiac Disorders: Yes (heart condition) Hx Family Respiratory Disorders: No Hx Family Cancer: Yes Hx Family GI Disorders: No Hx Family Endocrine Disorder: No Hx Family Neuromuscular Disorders: No Hx Family Neurologic Disorders: No Hx Family HEENT Disorders: No Hx Family Autoimmune Disorders: No Father Living Status: Hx Family Cancer: Yes Internal Medicine - H&P: Meds Aspirin [Lo-Dose Aspirin EC] 81 mg PO DAILY 08/19/16 [History] Carvedilol [Coreg] 12.5 mg PO BID 08/19/16 [History] Potassium Chloride [Klor-Con 10] 10 meq PO BID 08/19/16 [History] Simvastatin [Zocor] 10 mg PO HS 08/19/16 [History] amLODIPine [Norvasc] 5 mg PO DAILY 08/19/16 [History] Famotidine [Pepcid] 40 mg PO DAILY 12/27/17 [History] Acetaminophen [Non-Aspirin] 325 mg PO Q6H PRN 06/09/18 [History] Ferrous Gluconate 324 mg PO DAILY 06/09/18 [History] Imipramine HCl [Tofranil] 25 mg PO BID 06/09/18 [History] Loperamide [Imodium] 2 mg PO Q6H PRN 06/09/18 [History] Oxybutynin Chloride [Ditropan Xl] 10 mg PO HS 06/09/18 [History] Cephalexin [Keflex] 500 mg PO BID #20 capsule 10/17/18 [Rx] Acetaminophen/Diphenhydramine [Acetaminophen Pm Caplet] 2 each PO HS PRN 11/11/18 [History] Cyanocobalamin (B-12) [Vitamin B12] 1,000 mcg IM QMONTH 11/11/18 [History] Diphenhydramine HCl [Ez Nite Sleep] 25 mg PO Q8H PRN 11/11/18 [History] Docusate [Colace] 100 mg PO BID PRN 11/11/18 [History] Guaifenesin [Mucinex] 600 mg PO Q12H PRN 11/11/18 [History] Lidocaine HCl [Aspercreme] 76.5 gm TP AD PRN 11/11/18 [History] Lidocaine [Aspercreme] 1 each TP 1900 11/11/18 [History] Meloxicam [Mobic] 15 mg PO DAILY 11/11/18 [History] Omeprazole [PriLOSEC] 20 mg PO DAILY 11/11/18 [History] Polyethylene Glycol 3350 [MiraLAX] 17 gm PO DAILY PRN 11/11/18 [History] Allergy/AdvReac Type Severity Reaction Status Date / Time Sulfa (Sulfonamide Allergy Rash Verified 11/11/18 23:10 Antibiotics) Cyclobenzaprine AdvReac Confusion Verified 05/30/18 06:40 [From Flexeril] All Systems PM: A 10-system review of systems was performed and is negative for pertinent findings except as documented above in the HPI. - Constitutional Vitals: Temp Pulse Resp BP Pulse Ox 98.1 F 83 16 146/85 94 11/11/18 22:54 11/11/18 22:54 11/11/18 22:54 11/11/18 22:54 11/11/18 22:54 General appearance: Present: cooperative, A&O X 3, pleasant, no acute distress, answers questions appropriately Exam: - - Head Head exam: Present: normal inspection - Eye Eye exam: Present: EOMI, normal appearance - Respiratory Respiratory exam: Absent: chest wall tenderness, decreased breath sounds, CTAB, rales, respiratory distress, rhonchi, wheezes - Cardiovascular Cardiovascular exam: Present: RRR. Absent: diastolic murmur, systolic murmur - GI/Abdominal GI/Abdominal exam: Present: normal bowel sounds, soft. Absent: tenderness - Extremities Exam Extremities exam: Present: warm, radial pulses palpable and symmetrical. Absent: calf tenderness, pedal edema, tenderness - Back Exam Back exam: Present: vertebral tenderness. Absent: CVA tenderness (L), CVA tenderness (R) Additional comments: Tenderness to the spine with palpation over the thoracic area - Neurological Exam Neurological exam: Present: no focal deficits, strengths equal and symetr throughout. Absent: motor sensory deficit, facial droop, speech deficit - Skin Skin exam: Present: dry, excoriation, normal color, warm Additional comments: Excoriation to skin under the breasts bilaterally Internal Med - H&P Results - Labs CBC & Chem 7: 11/11/18 17:50 11/11/18 17:50 Labs: Short CBC 11/11/18 Range/Units 17:50 WBC 5.6 (4.3-11.1) K/mcL Hgb 12.8 (11.5-15.4) g/dL Hct 38.7 (35.3-44.9) % Plt Count 200 (140-400) K/mcL Neutrophils # 2.7 (1.6-8.9) K/mcL BMP 11/11/18 17:50 Sodium 135 L Potassium 4.2 Chloride 101 Carbon Dioxide 27 BUN 24 H Creatinine 0.70 Glucose 95 Calcium 9.1 Cardiac Enzymes 11/11/18 Range/Units 17:50 Troponin I < 0.03 (< 0.04) ng/mL Liver Function 11/11/18 Range/Units 17:50 Total Bilirubin 0.4 (0.3-1.0) mg/dL Direct Bilirubin 0.1 (0.0-0.2) mg/dL AST 20 (13-39) Units/L ALT 9 (7-52) Units/L Alkaline Phosphatase 205 H (34-104) Units/L Albumin 4.0 (3.5-5.7) g/dL Urine 11/11/18 Range/Units 19:38 Urine Color Yellow (Yellow) Urine Clarity Cloudy A (Clear) Urine pH 7.5 (5.0-8.0) pH Units Ur Specific [place] < 1.005 L (1.010-1.025) Urine Protein Trace (Neg-Trace) mg/dL Urine Glucose (UA) Normal (Normal) mg/dL - Impressions ITS Impressions Chest X-Ray 11/11/18 17:19 IMPRESSION: No acute cardiopulmonary process. D/ / Carolyn Castro MD / Carolyn Castro MD Interpreting Provider: Carolyn Castro MD Cervical Spine CT 11/11/18 17:25 IMPRESSION: 1. No acute cervical spine abnormality 2. Subacute appearing moderate T4 compression fracture worsened from 10/17/2018. See separate report from the concurrent CT thoracic spine for further details. D/ / Chetan Og MD / Chetan Og MD Interpreting Provider: Chetan Og MD Lumbar Spine CT 11/11/18 17:25 IMPRESSION: 1. CT T-SPINE: Approximately 33% anterior wedge compression superior endplate T4. 2. Fracture across the posterior elements of T4. 3. Nondisplaced subacute fracture posterior inferior margin of T3 spinous process. 4. Redemonstration of multilevel subacute fractures left ribs 4-10 (flail chest) and multiple stages of healing of bilateral rib fractures; non accidental trauma should be considered in the differential. 5. Ascending thoracic aorta aneurysm measuring 4.7 cm. Vascular consultation recommended on a nonemergent basis. 6. Main pulmonary artery dilatation can be seen with pulmonary hypertension but is nonspecific. 7. CT L-SPINE: Chronic L1 compression fracture status post vertebroplasty; no acute lumbar fracture evident. 8. Chronic degenerative grade 1 anterolisthesis L5 on S1. 9. Baastrup syndrome, a degenerative process between abutting spinous processes. 10. Mild bilaterally symmetrical SI joint osteoarthritis. Critical results were called by Dr. Junior Doyle to Darrell Moffett on 11/11/2018 at 19:50. D/ / Junior Doyle / Junior Doyle Interpreting Provider: Junior Doyle Thoracic Spine CT 11/11/18 17:25 IMPRESSION: 1. CT T-SPINE: Approximately 33% anterior wedge compression superior endplate T4. 2. Fracture across the posterior elements of T4. 3. Nondisplaced subacute fracture posterior inferior margin of T3 spinous process. 4. Redemonstration of multilevel subacute fractures left ribs 4-10 (flail chest) and multiple stages of healing of bilateral rib fractures; non accidental trauma should be considered in the differential. 5. Ascending thoracic aorta aneurysm measuring 4.7 cm. Vascular consultation recommended on a nonemergent basis. 6. Main pulmonary artery dilatation can be seen with pulmonary hypertension but is nonspecific. 7. CT L-SPINE: Chronic L1 compression fracture status post vertebroplasty; no acute lumbar fracture evident. 8. Chronic degenerative grade 1 anterolisthesis L5 on S1. 9. Baastrup syndrome, a degenerative process between abutting spinous processes. 10. Mild bilaterally symmetrical SI joint osteoarthritis. Critical results were called by Dr. Junior Doyle to Darrell Moffett DO on 11/11/2018 at 19:50. D/ / Junior Doyle / Junior Doyle Interpreting Provider: Junior Doyle Pelvis X-Ray 11/11/18 17:32 IMPRESSION: No acute osseous abnormality. D/ / 11/11/2018 18:00:23 Carolyn Castro MD / bcarter Interpreting Provider: Carolyn Castro MD - Assessment and Plan (1) Frequent falls Current Visit: No Status: Acute Assessment and plan: Patient has had multiple falls at home, despite using a walker and living in an assisted living facility. These falls have resulted in numerous injuries. PT and OT evaluation Monitor with fall precautions Cardiac monitoring (2) UTI (urinary tract infection) Current Visit: No Status: Acute Assessment and plan: Patient's urinalysis suggestive of urinary tract infection. She has a history of urinary tract infections, most recent culture grew out enterococcus faecium, which was only intermediately sensitive to nitrofurantoin. She has been on Keflex at the retirement. A repeat urine culture was ordered. Discussed antibiotic coverage with pharmacy, suggested ceftriaxone and linezolid to cover for her history of E. faecium and Klebsiella pneumoniae. Start ceftriaxone and linezolid Follow up culture results. Qualifiers: Urinary tract infection type: acute cystitis Hematuria presence: with hematuria Qualified Code(s): N30.01 - Acute cystitis with hematuria (3) Thoracic compression fracture Current Visit: Yes Status: Acute Assessment and plan: As seen CT of spine. Patient has history of multiple falls. Patient able to raise herself up out of the bed, has tenderness with palpation. PT/OT consult in the morning Continue to monitor Qualifiers: Encounter type: initial encounter Thoracic vertebra fracture level: T4 Qualified Code(s): S22.040A - Wedge compression fracture of fourth thoracic v ertebra, initial encounter for closed fracture (4) DVT prophylaxis Current Visit: No Status: Acute Assessment and plan: SCDs (5) Valarie infection Current Visit: Yes Status: Acute Assessment and plan: Valarie infection to intertriginous areas. Nystatin as needed. - Time Spent With Patient Total time spent is greater than 50% in coordination of care (as documented) at patient's floor/unit and/or counseling patient: Greater than 35 minutes
[2018-11-12] MEDS: Nystatin POWDER 30 GM BOTTLE TP SCH ×3 (04:24→22:14)
[2018-11-12 08:00] LABS: Hematocrit 37.1 % (35.3-44.9); Hemoglobin 12.3 g/dL (11.5-15.4); Mean Corpuscular HGB Conc 33.2 g/dL (31.6-35.5); Mean Corpuscular Hemoglobin 27.6 pg (28.0-33.3); Mean Corpuscular Volume 83.2 fL (83.0-100.0); Mean Platelet Volume 10.3 fL (9.4-12.4); Platelet Count 191 K/mcL (140-400); Red Blood Count 4.46 M/mcL (3.82-4.97); Red Cell Distribution Width 13.8 % (11.5-14.5)
[2018-11-12 08:50] LABS: BUN/Creatinine Ratio 26 (6-26); Blood Urea Nitrogen 16 mg/dL (8-23); Calcium 8.9 mg/dL (8.6-10.3); Carbon Dioxide 27 mEq/L (23-29); Chloride 100 mEq/L (98-107); Glucose 113 mg/dL (70-105); Osmolality,Calculated 280 (280-300); Potassium 3.6 mEq/L (3.5-5.1); Sodium 134 mEq/L (136-145); eGFR For Non-African Americans > 60 (> 60)
[2018-11-12] MEDS ORDERED: cefTRIAXone 1,000 MG in Water for inj. (sterile) 20 ML 10 ML IVP SCH (09:00)
--- NOTE | 2018-11-12 09:36 | Electrocardiograph Report ---
[address] [address] Test Date: 2018-11-11 Pat Name: Ludy Hollins Department: [id number] Room: [facility] Gender: F Eyewear Consultant: : 1935 Requested By: Darrell Moffett Order Number: [id number] Reading MD: Zeke Masters Measurements Intervals [place] Rate: 82 P: 9 NH: 193 QRS: 21 QRSD: 97 T: 41 QT: 360 QTc: 421 Interpretive Statements Sinus rhythm Electronically Signed On 11-12-2018 9:34:49 EDT by Zeke Masters
--- NOTE | 2018-11-12 12:29 | Infectious Disease Consult ---
Infectious Disease-Consult - Encounter Date/Time Date of Encounter: 11/12/18 Time of Encounter: 12:29 - Data of Consult Patient: new to practice Reason for consult: UTI Consult date: 11/12/18 Requesting Physician: John Hanson Primary Care Provider: Cem Dorantes MD - HPI HPI: Ms. Hollins is an 83-year-old female with a past medical history of hyperlipidemia, hypertension, remote history of bilateral total knee replacements, and recurrent urinary tract infections. The patient was admitted to the hospital 11/11/18 for thoracic spine compression fracture and weakness. We are consulted 11/12/18 for further workup and treatment recommendations for UTI. Briefly, the patient is a 83-year-old female with past medical history as stated above. The patient resides at a local assisted living facility. She states for the past few weeks she self progressively more weak and has had multiple falls. Apparently, the patient fell yesterday and sustained head injury. She was seen in the ER and had a CT of the head that was negative was discharged home. She had progressively worsening generalized weakness over the course of the day and was unable to ambulate that she came back to the ER for further evaluation and treatment and possible rehabilitation placement. Upon arrival, patient was afebrile and hemodynamically stable. She had a normal white blood cell count and renal function. Alk phosphatase was mildly elevated at 205. Troponin was negative. Urinalysis was obtained and was positive for blood, leukocyte esterase, 50-100 WBCs, few bacteria, moderate epithelial cells. Urine culture is pending. She had chest x-ray that was negative. She had C-spine, T-spine, and L-spine CT scans that revealed T3 and T4 subacute compression fractures. Pelvis x-ray was negative. She was admitted to the hospital for further evaluation and treatment. Since admission, the patient has remained afebrile hemodynamically stable. Her WBC remains normal. She was noted to have a positive urine culture from 11/03/18 thank felt vancomycin resistant Enterococcus faecium. According to the patient's home medication list, she was started on oral Keflex on 10/17/18. Upon admission, she was started on IV Rocephin and Zyvox. We have been asked to evaluate and make further recommendations. During my exam today, the patient states that for the past couple of weeks she has felt progressively more weak and tired. She denies any fevers or chills or rigors. Denies any headache. She states she injured her neck recently with one of her falls. Denies chest pain, shortness of breath, or cough. Denies nausea, vomiting, diarrhea, or constipation. She reports intermittently some loose stools that are normal for her. She denies abdominal pain. She reports chronic urinary incontinence and dysuria/frequency that has been ongoing for about a week. She denies back or flank pain. She denies oral thrush or skin rashes. The patient lives alone at a local assisted living facility. 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 She denies any tobacco, alcohol, or illicit drug use. Denies any pet or animal exposures. Denies any chronic infectious diseases. - ROS Review of Systems: All systems reviewed and no additional remarkable complaints except as stated. - Results CBC & Chem 7: 11/12/18 07:18 11/12/18 07:18 - Exam Vitals: Temp Pulse Resp BP Pulse Ox 98 F 92 16 138/74 95 11/12/18 10:30 11/12/18 10:30 11/12/18 10:30 11/12/18 10:30 11/12/18 10:30 Exam: Head: Atraumatic, normal inspection, normocephalic. Eye: EOMI, PERRLA, no scleral icterus noted. ENT: Mucous membranes moist. No odontogenic infection noted. Neck: Normal inspection, no meningismus. Respiratory: Clear to auscultation. No rales, respiratory distress, rhonchi, or wheezes noted. Cardiovascular: Regular rate and rhythm, S1 and S2 audible. No murmurs, rubs, or gallops. GI: Soft, nondistended, normal bowel sounds. Extremities:No joint swelling, pedal edema, or tenderness noted. Back: Normal inspection. No vertebral tenderness noted. No CVA tenderness noted. Neurological: Alert, oriented 3, no focal deficits. Psychiatric: normal affect, normal mood. Skin: Dry, intact, warm. Normal color. No rashes. Aspirin [Lo-Dose Aspirin EC] 81 mg PO DAILY 08/19/16 [History] Carvedilol [Coreg] 12.5 mg PO BID 08/19/16 [History] Potassium Chloride [Klor-Con 10] 10 meq PO BID 08/19/16 [History] Simvastatin [Zocor] 10 mg PO HS 08/19/16 [History] Famotidine [Pepcid] 40 mg PO DAILY 12/27/17 [History] Acetaminophen [Non-Aspirin] 325 mg PO Q6H PRN 06/09/18 [History] Ferrous Gluconate 324 mg PO DAILY 06/09/18 [History] Loperamide [Imodium] 2 mg PO Q6H PRN 06/09/18 [History] Oxybutynin Chloride [Ditropan Xl] 10 mg PO HS 06/09/18 [History] Cyanocobalamin (B-12) [Vitamin B12] 1,000 mcg IM QMONTH 11/11/18 [History] Docusate [Colace] 100 mg PO BID PRN 11/11/18 [History] Lidocaine HCl [Aspercreme] 76.5 gm TP AD PRN 11/11/18 [History] Lidocaine [Aspercreme] 1 each TP 1900 11/11/18 [History] Meloxicam [Mobic] 15 mg PO DAILY 11/11/18 [History] Polyethylene Glycol 3350 [MiraLAX] 17 gm PO DAILY PRN 11/11/18 [History] Linezolid [Zyvox] 600 mg PO BID #10 tablet 11/13/18 [Rx] Allergy/AdvReac Type Severity Reaction Status Date / Time Sulfa (Sulfonamide Allergy Rash Verified 11/11/18 23:10 Antibiotics) Cyclobenzaprine AdvReac Confusion Verified 05/30/18 06:40 [From Flexeril] - Assessment and Plan (1) Urinary tract infection Current Visit: No Status: Acute Causative organism: Unclear, but likely VR E. faecium given recent urine culture results and it does not appear the patient was adequately treated. Uncomplicated. Does not have chronic mtz and does not appear to have ascending infection. No SIRS criteria. Currently on rocephin and zyvox. Qualifiers: Urinary tract infection type: acute cystitis Hematuria presence: without hematuria Qualified Code(s): N30.00 - Acute cystitis without hematuria SNOMED Code(s): 53347037 (2) Fall Current Visit: No Status: Acute Likely secondary to generalized weakness. PT/OT to evaluate. Qualifiers: Encounter type: initial encounter Qualified Code(s): W19.XXXA - Unspecified fall, initial encounter SNOMED Code(s): 6859534, 857867749 (3) Weakness Current Visit: Yes Status: Acute Likely multifactorial. PT/OT. SNOMED Code(s): 19701598 (4) Thoracic compression fracture Current Visit: Yes Status: Acute Noted on T-spine CT. Recommend Ortho-spine to evaluate. Qualifiers: Encounter type: initial encounter Thoracic vertebra fracture level: T4 Qualified Code(s): S22.040A - Wedge compression fracture of fourth thoracic vertebra, initial encounter for closed fracture SNOMED Code(s): 408714922 (5) Hypertension Current Visit: No Status: Chronic Qualifiers: Qualified Code(s): I10 - Essential (primary) hypertension SNOMED Code(s): 81797299 - Recommendations Recommendations: Await urine culture to finalize. PT/OT per the primary team. Continue linezolid 600mg BID, but switch to PO. Discontinue Rocephin. Duration of treatment depends on the clinical picture, but likely a total of 7 days. Monitor renal function and dose-adjust antibiotics. Contact precautions per hospital policy. Past Med Surg Social Fam HX - Past Medical History Medical history: arthritis, hyperlipidemia, hypertension, osteoporosis Additional medical history: multiple falls, L1 vertebral fx Psychiatric history: no psych history - Past Surgical History Surgical History: appendectomy, hysterectomy, knee replacement Additional surgical history: bilateraly knee replacement. lumpectomy to left breast - Social History Smoking Status: Never smoker Smokeless Tobacco Status: No Alcohol use: none Drug use: none - Family History Mother Adopted: No Family Member Ethnicity: Non- Living Status: Hx Family Cardiac Disorders: Yes (heart condition) Hx Family Respiratory Disorders: No Hx Family Cancer: Yes Hx Family GI Disorders: No Hx Family Endocrine Disorder: No Hx Family Neuromuscular Disorders: No Hx Family Neurologic Disorders: No Hx Family HEENT Disorders: No Hx Family Autoimmune Disorders: No Father Living Status: Hx Family Cancer: Yes Consult Discharge Plan - Plan Referrals: Cem Dorantes MD [Primary Care Provider] - Prescriptions: Linezolid [Zyvox] 600 mg PO BID #10 tablet - Attending Attestation I have personally performed a face to face evaluation on this patient. I have reviewed and agree with the care plan. History and Exam by me shows: This is an addendum to original report dictated by Teri Delaney CNP. Please refer to Teri's note for full detail. Patient is a 83-year-old woman who we were consulted on for urinary tract infection was VRE. Currently patient appears comfortable. Laying in bed. Playing crossword puzzle. No signs of acute distress. Clinically doing great. Agree with continuing Zyvox 600 mg by mouth twice a day to finish a 7 day course.
[2018-11-12] MEDS ORDERED: Ondansetron 4 MG/2 ML VIAL IVP PRN (14:31)
[2018-11-12] MEDS ORDERED: Acetaminophen 325 MG TABLET PO PRN (14:31)
--- NOTE | 2018-11-12 14:33 | Event Note ---
Date of Encounter: 11/12/18 Time of Encounter: 10:30 Admitted for frequent falls and found to have UTI. Recent VRE on UCx inadequately treated, and pt started overnight on zyvox. Previous culture w MDR citrobacter in 09/2018. CT spine shows acute T4 anterior wedge fracture and subacute L 4-10 rib fractures. -Will hold home TCA while giving zyvox -Add tylenol and zofran for supportive care -ID consultation for appropriate abx selection -SW consult to assist with placement
[2018-11-12] MEDS: Linezolid 600 MG TABLET PO SCH (22:13)
[2018-11-13] MEDS: Nystatin POWDER 30 GM BOTTLE TP SCH (09:01)
[2018-11-13] MEDS: Linezolid 600 MG TABLET PO SCH (09:01)
[2018-11-13 11:22] VITALS: BP 124/77
--- NOTE | 2018-11-13 11:34 | Discharge Summary ---
- NOTES TO OUTPATIENT PROVIDER Notes to Outpatient Provider: VRE UTI on PO linezolid, frequent falls d/c to SNF Date of Encounter: 11/13/18 Time of Encounter: 11:30 Hospital course: Dear Doctors, I recently had the opportunity to care for this patient during their recent hospital stay at [facility]. Ludy Hollins is an 83 F w hx HTN, HLD, GERD, OA, osteoporosis, who presented at time of admission from her assisted living facility with complaint of frequent falls. Pt has fallen numerous times in last few months, but hit head earlier this week and came to ED for evaluation which was unremarkable including CT head. She returned due to persistent weakness and falls, describing them as her legs just giving out underneath her. No confusion or LOC. In the ED, trauma eval due to multiple falls was obtained which showed T4 compression fx and subacute L 4-10 rib fx's. Also, a UA was concerning for UTI w +LE and +WBC, and review of outpatient cultures revealed VRE treated outpatient with keflex. Patient admitted for further evaluation. In the hospital, pt started empirically on Zyvox to cover VRE UTI. Infectious Disease consultation agreed with this and recommended 7 day course. Have stopped TCA while on Zyvox. PT/OT worked w patient and recommended SNF placement for which patient is agreeable. Conservative management of compression and nondisplaced rib fractures with pain control and rehab as above. Dx: falls, VRE UTI, T4 anterior wedge compression fracture of 33%, subacute L rib 4-10 fractures Pertinent tests/consults: ID consult, CT spine, CXR Follow up: PCP 1 week Tests pending: urine culture from this admission Med changes: - new Zyvox 600 po bid, last dose 11/18/2018 - stop benadryl - stop imipramine for 1 week - stop omeprazole - stop amlodipine Mental status: awake, fully oriented Code status: DNRCC-A / DNI It has been my pleasure participating in this patient's care. Please contact me with any questions or concerns regarding their hospital stay. Sincerely, John Hanson MD - Discharge Medications Prescriptions: New Linezolid [Zyvox] 600 mg PO BID #10 tablet Continued Carvedilol [Coreg] 12.5 mg PO BID Simvastatin [Zocor] 10 mg PO HS Potassium Chloride [Klor-Con 10] 10 meq PO BID Aspirin [Lo-Dose Aspirin EC] 81 mg PO DAILY Famotidine [Pepcid] 40 mg PO DAILY Oxybutynin Chloride [Ditropan Xl] 10 mg PO HS Ferrous Gluconate 324 mg PO DAILY Acetaminophen [Non-Aspirin] 325 mg PO Q6H PRN PRN Reason: Pain Loperamide [Imodium] 2 mg PO Q6H PRN PRN Reason: Diarrhea Lidocaine HCl [Aspercreme] 76.5 gm TP AD PRN PRN Reason: Pain Lidocaine [Aspercreme] 1 each TP 1900 Docusate [Colace] 100 mg PO BID PRN PRN Reason: Constipation Polyethylene Glycol 3350 [MiraLAX] 17 gm PO DAILY PRN PRN Reason: Constipation Meloxicam [Mobic] 15 mg PO DAILY Cyanocobalamin (B-12) [Vitamin B12] 1,000 mcg IM QMONTH Discontinued amLODIPine [Norvasc] 5 mg PO DAILY Imipramine HCl [Tofranil] 25 mg PO BID Cephalexin [Keflex] 500 mg PO BID #20 capsule Acetaminophen/Diphenhydramine [Acetaminophen Pm Caplet] 2 each PO HS PRN PRN Reason: Headache Diphenhydramine HCl [Ez Nite Sleep] 25 mg PO Q8H PRN PRN Reason: Itching Guaifenesin [Mucinex] 600 mg PO Q12H PRN PRN Reason: Congestion Omeprazole [PriLOSEC] 20 mg PO DAILY Home Medications: Aspirin [Lo-Dose Aspirin EC] 81 mg PO DAILY 08/19/16 [History] Carvedilol [Coreg] 12.5 mg PO BID 08/19/16 [History] Potassium Chloride [Klor-Con 10] 10 meq PO BID 08/19/16 [History] Simvastatin [Zocor] 10 mg PO HS 08/19/16 [History] Famotidine [Pepcid] 40 mg PO DAILY 12/27/17 [History] Acetaminophen [Non-Aspirin] 325 mg PO Q6H PRN 06/09/18 [History] Ferrous Gluconate 324 mg PO DAILY 06/09/18 [History] Loperamide [Imodium] 2 mg PO Q6H PRN 06/09/18 [History] Oxybutynin Chloride [Ditropan Xl] 10 mg PO HS 06/09/18 [History] Cyanocobalamin (B-12) [Vitamin B12] 1,000 mcg IM QMONTH 11/11/18 [History] Docusate [Colace] 100 mg PO BID PRN 11/11/18 [History] Lidocaine HCl [Aspercreme] 76.5 gm TP AD PRN 11/11/18 [History] Lidocaine [Aspercreme] 1 each TP 1900 11/11/18 [History] Meloxicam [Mobic] 15 mg PO DAILY 11/11/18 [History] Polyethylene Glycol 3350 [MiraLAX] 17 gm PO DAILY PRN 11/11/18 [History] Linezolid [Zyvox] 600 mg PO BID #10 tablet 11/13/18 [Rx] Allergies/Adverse Reactions: Allergy/AdvReac Type Severity Reaction Status Date / Time Sulfa (Sulfonamide Allergy Rash Verified 11/11/18 23:10 Antibiotics) Cyclobenzaprine AdvReac Confusion Verified 05/30/18 06:40 [From Flexeril] Date of admission: 11/11/18 21:34 Primary care physician: Cem Dorantes MD Consults: 11/12/18 01:18 Consult to Occupational Therapy [CONS] Routine Comment: Evaluate, develop and implement POC Reason for Consult: Frequent falls, lives at assisted living facility Does patient have active BEDREST order?: No Is patient medically & hemodynamically stable?: Yes Patient assessed for mobility or mobilized this visit?: No Consult to Physical Therapy [CONS] Routine Comment: Evaluate, develop and implement POC Reason for Consult: Frequent falls, lives at assisted living facility Does patient have active BEDREST order?: No Is patient medically & hemodynamically stable?: Yes Patient assessed for mobility or mobilized this visit?: No 11/12/18 08:41 Consult to Infectious Diseases [CONS] Routine Consulting Provider: Infectious Disease Guerda Reason for Consult: Here with falls suspected from UTI. Review of previous 2 UCx shows both VRE and ESBL Klebsiella. Please provide appropriate empiric abx rec's Call Completed: Yes 11/12/18 10:39 Consult to Laundry Bag Punch Operator [CONS] Routine Reason for SW Consult: d/c planning - Constitutional Vitals: Temp Pulse Resp BP Pulse Ox 98.4 F 101 16 124/77 96 11/13/18 11:21 11/13/18 11:21 11/13/18 11:21 11/13/18 11:21 11/13/18 11:21 General appearance: Present: cooperative, A&O X 3, pleasant, no acute distress, answers questions appropriately Exam: General: NAD, good eye contact, well appearing, elderly Thoracic: Normal breath sounds b/l, no wheezing or crackles Cardio: Normal S1 and S2, regular rate and rhythm Abdomen: Soft, nontender Extremities: Warm, well perfused. DP pulses 2+ b/l. Neuro: Awake, fully oriented. Speech fluent - Patient Status Disposition: Transfer SNF Condition: Fair Functional capacity at discharge: uses cane/walker Overall status at discharge: patient is progressing back to baseline - Discharge Instructions Follow Up With: Cem Dorantes MD [Primary Care Provider] - - Diet and Activity Activity: as per physical therapy Diet: advance to your usual diet
--- NOTE | 2018-11-13 11:53 | Physician Discharge Referral ---
ExtendedCare Referral Info Transfer To: SNF Provider in Charge after Transfer: PCP Institutional Level of Care: Skilled - Transfer Medications Prescriptions: Linezolid [Zyvox] 600 mg PO BID #10 tablet Home Medications: Aspirin [Lo-Dose Aspirin EC] 81 mg PO DAILY 08/19/16 [History] Carvedilol [Coreg] 12.5 mg PO BID 08/19/16 [History] Potassium Chloride [Klor-Con 10] 10 meq PO BID 08/19/16 [History] Simvastatin [Zocor] 10 mg PO HS 08/19/16 [History] Famotidine [Pepcid] 40 mg PO DAILY 12/27/17 [History] Acetaminophen [Non-Aspirin] 325 mg PO Q6H PRN 06/09/18 [History] Ferrous Gluconate 324 mg PO DAILY 06/09/18 [History] Loperamide [Imodium] 2 mg PO Q6H PRN 06/09/18 [History] Oxybutynin Chloride [Ditropan Xl] 10 mg PO HS 06/09/18 [History] Cyanocobalamin (B-12) [Vitamin B12] 1,000 mcg IM QMONTH 11/11/18 [History] Docusate [Colace] 100 mg PO BID PRN 11/11/18 [History] Lidocaine HCl [Aspercreme] 76.5 gm TP AD PRN 11/11/18 [History] Lidocaine [Aspercreme] 1 each TP 1900 11/11/18 [History] Meloxicam [Mobic] 15 mg PO DAILY 11/11/18 [History] Polyethylene Glycol 3350 [MiraLAX] 17 gm PO DAILY PRN 11/11/18 [History] Linezolid [Zyvox] 600 mg PO BID #10 tablet 11/13/18 [Rx] Allergies/Adverse Reactions: Allergy/AdvReac Type Severity Reaction Status Date / Time Sulfa (Sulfonamide Allergy Rash Verified 11/11/18 23:10 Antibiotics) Cyclobenzaprine AdvReac Confusion Verified 05/30/18 06:40 [From Flexeril] - Respiratory Orders Smoking Cessation: Smoking cessation has been advised. For more information, call the [place] Tobacco Quit Line at 6-840-OZDW-NOW. - Ancillary Orders May use pressure relief devices daily prn, May go on MARCIANO w/family/respon libertarian w/meds at nurse discretion PRN, May have alcoholic beverages, May consult with Dentist, Inside Sales Specialist, Water Taxi Driver PRN - Advance Directives Code Status: DNR-Arrest/Don't Intubate - Mobility Orders Ambulate - Rehabiliation Orders Rehab Potential: Good Rehab Orders: Evaluation for Physical Therapy, Evaluation for Occupational Therapy - Treatments Skin tear care topically daily PRN per policy - Diet Orders Regular CERTIFICATION: I certify that the transfer of the above named patient to an Extended Care Facility is necessary for the continuing treatment of the diagnosis listed. The above information is true and accurate reflection of patient's current condition. Confidential - Redisclosure prohibited without a patient's written consent.
--- NOTE | 2018-11-13 12:37 | Infectious Disease Progress No ---
ID Progress Note Date of Encounter: 11/13/18 Time of Encounter: 10:45 - Subjective Subjective: Patient seen and examined. No acute events noted overnight. Patient sitting up in the bedside chair and states she feels 100% better. Denies fevers, chills, or rigors. Denies chest pain, shortness of breath, or cough. Denies nausea, vomiting, diarrhea, or constipation. Denies abdominal pain or urinary complaints. States dysuria and frequency has resolved. She remains chronically incontinent of urine. Denies oral thrush or skin lesions. States her appetite is very good. - Objective CBC & Chem 7: 11/12/18 07:18 11/12/18 07:18 - Exam Vitals: Temp Pulse Resp BP Pulse Ox 98.4 F 101 16 124/77 96 11/13/18 11:21 11/13/18 11:21 11/13/18 11:21 11/13/18 11:21 11/13/18 11:21 Exam: Head: Atraumatic, normal inspection, normocephalic. Eye: EOMI, PERRLA, no scleral icterus noted. ENT: Mucous membranes moist. No odontogenic infection noted. Neck: Normal inspection, no meningismus. Respiratory: Clear to auscultation. No rales, respiratory distress, rhonchi, or wheezes noted. Cardiovascular: Regular rate and rhythm, S1 and S2 audible. No murmurs, rubs, or gallops. GI: Soft, nondistended, normal bowel sounds. Extremities:No joint swelling, pedal edema, or tenderness noted. Back: Normal inspection. No vertebral tenderness noted. No CVA tenderness noted. Neurological: Alert, oriented 3, no focal deficits. Psychiatric: normal affect, normal mood. Skin: Dry, intact, warm. Normal color. No rashes. - Assessment and Plan (1) Urinary tract infection Status: Acute Causative organism: Unclear, but likely VR E. faecium given recent urine culture results and it does not appear the patient was adequately treated. Uncomplicated. Does not have chronic mtz and does not appear to have ascending infection. No SIRS criteria. Currently on zyvox. Qualifiers: Urinary tract infection type: acute cystitis Hematuria presence: without hematuria Qualified Code(s): N30.00 - Acute cystitis without hematuria SNOMED Code(s): 73699138 (2) Fall Status: Acute Likely secondary to generalized weakness. PT/OT. Qualifiers: Encounter type: initial encounter Qualified Code(s): W19.XXXA - Unspecified fall, initial encounter SNOMED Code(s): 6548411, 969970505 (3) Weakness Status: Acute Likely multifactorial. Improved. PT/OT. SNOMED Code(s): 28271559 (4) Thoracic compression fracture Status: Acute Noted on T-spine CT. Recommend Ortho-spine to evaluate. Qualifiers: Encounter type: initial encounter Thoracic vertebra fracture level: T4 Qualified Code(s): S22.040A - Wedge compression fracture of fourth thoracic vertebra, initial encounter for closed fracture SNOMED Code(s): 292669535 (5) Hypertension Status: Chronic Qualifiers: Qualified Code(s): I10 - Essential (primary) hypertension SNOMED Code(s): 60448232 - Recommendations Recommendations: Await urine culture to finalize. PT/OT per the primary team. Continue linezolid 600mg BID PO. Duration of treatment depends on the clinical picture, but likely a total of 7 days. Treat through 11/18/18. Monitor renal function and dose-adjust antibiotics. Contact precautions per hospital policy. Consult Discharge Plan - Plan Referrals: Cme Dorantes MD [Primary Care Provider] - 11/19/18 1:30 pm Prescriptions: Linezolid [Zyvox] 600 mg PO BID #10 tablet - Attending Attestation I have personally performed a face to face evaluation on this patient. I have reviewed and agree with the care plan. History and Exam by me shows: A/P: UTI with VRE finish 7 days of zyvox we will sign off
== END 2018-11-13 16:10 ==
LOC: 3NENU 17:10 → EMEROOARM 17:10 → SUATTDRO 21:34 → 3NENU 22:22
PROVIDERS: ADMIT Pediatrics; ATTEND Internal Medicine

== ENCOUNTER 2018-11-25 05:08 | Observation (INO) ==
--- NOTE | 2018-11-25 06:07 | Emergency Department Note ---
Disposition Clinical Impression: Hemorrhagic cystitis, Thrombocytopenia Disposition: Admitted As Inpatient Condition: Fair Time of Disposition: 13:12 General Adult HPI - General Chief complaint: ED Vaginal Bleeding Stated complaint: Vaginal Bleed Time Seen by Provider: 11/25/18 05:29 Source: patient, EMS, other (Nurse at [facility] patel wagner) Mode of arrival: EMS Limitations: no limitations Nursing Notes Reviewed: Yes Vital Signs Reviewed: Yes - History of Present Illness HPI Narrative: Patient is sent from [facility] for evaluation of possible vaginal bleeding. Nurse report received states that the patient had a small amount of blood seen in her Depends this morning. Patient has not complained of any pain and has had no fever, chills, nausea or vomiting. She was sent to [facility] the end of October for rehabilitation and continued treatment of UTI from [facility]. The patient states that she believes the blood is coming from the vagina. She denies trauma and states that she has had vaginal bleeding in the past. She begins to describe this, however, it is evident that she is confused as she states that she underwent an EGD for evaluation of this bleeding. Per the nurse at [facility] the patient does have episodes of mild confusion. She is a and O 3, at this time, however, is unable to provide an accurate history of any previous bleeding. She denies dysuria, abdominal pain, diarrhea, constipation, melena, hematochezia, rectal pain, vaginal pain or discharge. 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 No pain) Pain Scale: 0 Quality: other (No pain) Consistency: other Improves with: nothing Worsens with: nothing Associated symptoms: Reports: denies other symptoms, confusion Treatments Prior to Arrival: none - Related Data Home Medications Medication Instructions Recorded Confirmed Aspirin [Lo-Dose Aspirin EC] 81 mg PO DAILY 08/19/16 11/25/18 Carvedilol [Coreg] 6.25 mg PO BID 08/19/16 11/25/18 Potassium Chloride [Klor-Con 10] 10 meq PO BID 08/19/16 11/25/18 Simvastatin [Zocor] 10 mg PO HS 08/19/16 11/25/18 Famotidine [Pepcid] 40 mg PO DAILY 12/27/17 11/25/18 Acetaminophen [Non-Aspirin] 650 mg PO BID PRN 06/09/18 11/25/18 Ferrous Gluconate 324 mg PO DAILY 06/09/18 11/25/18 Loperamide [Imodium] 2 mg PO Q6H PRN 06/09/18 11/25/18 Cyanocobalamin (B-12) [Vitamin B12] 1,000 mcg IM QMONTH 11/11/18 11/25/18 Docusate [Colace] 100 mg PO BID PRN 11/11/18 11/25/18 Meloxicam [Mobic] 15 mg PO DAILY 11/11/18 11/25/18 Polyethylene Glycol 3350 [MiraLAX] 17 gm PO DAILY PRN 11/11/18 11/25/18 Previous Rx's Medication Instructions Recorded Linezolid [Zyvox] 600 mg PO BID #10 tablet 11/13/18 Allergies Allergy/AdvReac Type Severity Reaction Status Date / Time Sulfa (Sulfonamide Allergy Rash Verified 11/11/18 23:10 Antibiotics) Cyclobenzaprine AdvReac Confusion Verified 05/30/18 06:40 [From Flexeril] All systems ED: reviewed and negative except as stated. Review of Systems: As Per HPI Constitutional: Denies: fever, chills, weakness Cardiovascular: Denies: chest pain Respiratory: Denies: cough, dyspnea Gastrointestinal: Denies: abdominal pain, nausea, vomiting, diarrhea, constipation, hematemesis, melena, hematochezia Genitourinary: Denies: urgency, dysuria, frequency, hematuria, discharge Musculoskeletal: Denies: back pain Integumentary: Denies: rash Neurological: Reports: as per HPI, confusion. Denies: headache, weakness Hematological/Lymphatic: Denies: easy bleeding, easy bruising Past Medical History - Past Medical History Attestation: Yes The following information was validated with the patient. Source: patient, old records reviewed, nursing notes reviewed Medical history: Reports: arthritis, hyperlipidemia, hypertension, osteoporosis, other (UTI - [facility]) Surgical history: Reports: appendectomy, hysterectomy, knee replacement Psychiatric history: Reports: no psych history MASTER BAKER history: Reports: no MASTER BAKER history - Social History Smoking Status: Never smoker Smokeless Tobacco Status: No Alcohol use: Reports: none Drug use: Reports: none Physical Exam - General Limitations: no limitations General appearance: alert, in no apparent distress - Head Head exam: atraumatic, normocephalic, normal inspection - Eye Eye exam: Present: normal appearance. Absent: scleral icterus, conjunctival injection, periorbital swelling - ENT ENT exam: mucous membranes moist - Neck Neck exam: Present: normal inspection, full ROM, trachea midline. Absent: meningismus - Chest Chest inspection: Present: other (3cm healing (yellow) contusion on right upper chest wall. Pectus encarnatum) - Respiratory Respiratory exam: Present: normal lung sounds bilaterally. Absent: respiratory distress, wheezes - Cardiovascular Cardiovascular exam: Present: normal rhythm, tachycardia - Abdominal Exam Abdominal exam: Present: soft, Non-Tender, mass (distended bladder - non- tender). Absent: distention, guarding, rebound, rigidity - Rectal Exam Construction Recruiter present during exam: Yes Rectal exam: Present: normal inspection, normal rectal tone, other (Brown stool, no blood) - Female Construction Recruiter present during exam: Yes (FIONA Orta) External Exam: Present: other (Small amount of blood ) Speculum Exam: Present: normal speculum exam. Absent: vaginal bleeding - Extremities Exam Extremities exam: Present: full ROM, normal capillary refill, other (healing contusion left volar forearm) - Expanded Lower Extremity Exam Gait: not tested/not observed - Back Exam Back exam: Absent: CVA tenderness (R), CVA tenderness (L) - Neurological Exam Neurological exam: Present: alert, oriented X3, CN II-XII intact, other (mild confusion re: PMHx) - Psychiatric Psychiatric exam: Present: normal affect, normal mood - Skin Skin exam: Present: warm, dry, intact, normal color Course Course Narrative: Patient sent from SNF for eval of blood in diaper. She has intermittent urinary incontinence and is at the SNF for rehab /tx (Zyvox) of UTI from [facility]. This AM the nurse noticed small amount of blood and sent patient here. Patient has no complaints of pain and denies nausea, vomiting, fever, chills. She is mildly tachycardic with normal blood pressure, no fever. Heart sounds are normal and she has no history of dysrhythmia. On exam, she has a nontender, distended bladder and gross hematuria. Gallegos catheter was placed by the nurse. No clots are seen in the catheter or in the bag. Labs pending. CT ordered. Labs show mild thrombocytopenia which is new for the patient. H&H and white blood cell count normal. Renal function normal. Urinalysis shows too numerous to count reds, bacteria and leukocyte esterase are present. Culture ordered. CT has been read by the radiologist as hyperdense fluid in the bladder. Recommend direct visualization. 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 Case discussed with Dr. Campos. He will see the patient in consult. Case discussed with the hospitalist. Patient has been accepted for admission. Case discussed with Dr. Ball. He has had [id number] time with the patient and agrees with the assessment and plan. Vital Signs Temperature 97.4 F L 11/25/18 05:24 Pulse Rate 110 11/25/18 05:24 Respiratory Rate 18 11/25/18 05:24 Blood Pressure 133/99 11/25/18 05:24 O2 Sat by Pulse Oximetry 97 11/25/18 05:24 Temperature 97.4 F L 11/25/18 05:24 Pulse Rate 102 11/25/18 09:37 Respiratory Rate 18 11/25/18 09:37 Blood Pressure 134/89 11/25/18 09:37 O2 Sat by Pulse Oximetry 95 11/25/18 09:37 Oxygen Delivery Oxygen Delivery Room Air Medical Decision Making - Medical Records Medical records reviewed: Yes I reviewed the patient's medical records. - Lab Data Lab results reviewed: Yes I reviewed the patient's lab results. Lab results narrative: Laboratory Last Values WBC 9.0 K/mcL (4.3-11.1) 11/25/18 05:59 RBC 4.38 M/mcL (3.82-4.97) 11/25/18 05:59 Hgb 12.3 g/dL (11.5-15.4) 11/25/18 05:59 Hct 36.3 % (35.3-44.9) 11/25/18 05:59 MCV 82.9 fL (83.0-100.0) L 11/25/18 05:59 MCH 28.1 pg (28.0-33.3) 11/25/18 05:59 MCHC 33.9 g/dL (31.6-35.5) 11/25/18 05:59 RDW 13.2 % (11.5-14.5) 11/25/18 05:59 Plt Count 136 K/mcL (140-400) L 11/25/18 05:59 MPV 10.2 fL (9.4-12.4) 11/25/18 05:59 Immature Gran % 0.2 % (0-4) 11/25/18 05:59 Seg Neutrophils % 71.8 % 11/25/18 05:59 18.9 % 11/25/18 05:59 6.7 % 11/25/18 05:59 2.1 % 11/25/18 05:59 0.3 % 11/25/18 05:59 6.4 K/mcL (1.6-8.9) 11/25/18 05:59 1.7 K/mcL (0.6-4.6) 11/25/18 05:59 0.6 K/mcL (0.0-1.3) 11/25/18 05:59 0.2 K/mcL (0.0-0.6) 11/25/18 05:59 0.0 K/mcL (0.0-0.2) 11/25/18 05:59 PT 12.6 Seconds (9.4-12.1) H 11/25/18 05:59 INR 1.1 11/25/18 05:59 APTT 35.5 Seconds (26.0-36.0) 11/25/18 05:59 Sodium 136 mEq/L (136-145) 11/25/18 05:59 Potassium 4.1 mEq/L (3.5-5.1) 11/25/18 05:59 Chloride 106 mEq/L (98-107) 11/25/18 05:59 Carbon Dioxide 22 mEq/L (23-29) L 11/25/18 05:59 BUN 37 mg/dL (8-23) H 11/25/18 05:59 0.90 mg/dL (0.60-1.20) 11/25/18 05:59 Est GFR ( Amer) > 60 (> 60) 11/25/18 05:59 Est GFR (Non-Af Amer) 60 (> 60) 11/25/18 05:59 41 (6-26) H 11/25/18 05:59 Glucose 150 mg/dL (70-105) H 11/25/18 05:59 294 (280-300) 11/25/18 05:59 Calcium 9.2 mg/dL (8.6-10.3) 11/25/18 05:59 0.6 mg/dL (0.3-1.0) 11/25/18 05:59 0.1 mg/dL (0.0-0.2) 11/25/18 05:59 0.5 mg/dL (0.0-1.2) 11/25/18 05:59 AST 21 Units/L (13-39) 11/25/18 05:59 ALT 10 Units/L (7-52) 11/25/18 05:59 158 Units/L (34-104) H 11/25/18 05:59 7.0 g/dL (6.4-8.9) 11/25/18 05:59 3.8 g/dL (3.5-5.7) 11/25/18 05:59 3.2 g/dL (2.4-3.5) 11/25/18 05:59 1.2 (1.1-2.2) 11/25/18 05:59 Red (Yellow) A 11/25/18 08:18 Cloudy (Clear) A 11/25/18 08:18 6.5 pH Units (5.0-8.0) 11/25/18 08:18 Ur Specific [place] 1.028 (1.010-1.025) H 11/25/18 08:18 >=1000 mg/dL (Neg-Trace) H 11/25/18 08:18 Normal mg/dL (Normal) 11/25/18 08:18 Negative mg/dL (Negative) 11/25/18 08:18 Large (Negative) H 11/25/18 08:18 Negative (Negative) 11/25/18 08:18 Negative (Negative) 11/25/18 08:18 Normal mg/dL (Normal) 11/25/18 08:18 Ur Leukocyte Esterase Small (Negative) H 11/25/18 08:18 TNTC per hpf (0-3) H 11/25/18 08:18 Present per hpf (0-3) 11/25/18 08:18 Ur Squamous Epith Cells Present per lpf (None-Few) 11/25/18 08:18 Present per hpf (None-Few) 11/25/18 08:18 Ur Culture Indicated? YES (NO) A 11/25/18 08:18 Blood Type O POSITIVE 11/25/18 07:26 Antibody Screen NEGATIVE 11/25/18 07:26 Result diagrams: 11/25/18 05:59 11/25/18 05:59 Lab Results 11/25/18 11/25/18 11/25/18 Range/Units 05:59 05:59 05:59 WBC 9.0 (4.3-11.1) K/mcL RBC 4.38 (3.82-4.97) M/mcL Hgb 12.3 (11.5-15.4) g/dL Hct 36.3 (35.3-44.9) % MCV 82.9 L (83.0-100.0) fL MCH 28.1 (28.0-33.3) pg MCHC 33.9 (31.6-35.5) g/dL RDW 13.2 (11.5-14.5) % Plt Count 136 L (140-400) K/mcL MPV 10.2 (9.4-12.4) fL Immature Gran % 0.2 (0-4) % Seg Neutrophils % 71.8 % Lymphocytes % 18.9 % Monocytes % 6.7 % Eosinophils % 2.1 % Basophils % 0.3 % Neutrophils # 6.4 (1.6-8.9) K/mcL Lymphocytes # 1.7 (0.6-4.6) K/mcL Monocytes # 0.6 (0.0-1.3) K/mcL Eosinophils # 0.2 (0.0-0.6) K/mcL Basophils # 0.0 (0.0-0.2) K/mcL PT 12.6 H (9.4-12.1) Seconds INR 1.1 APTT 35.5 (26.0-36.0) Seconds Sodium 136 (136-145) mEq/L Potassium 4.1 (3.5-5.1) mEq/L Chloride 106 (98-107) mEq/L Carbon Dioxide 22 L (23-29) mEq/L BUN 37 H (8-23) mg/dL Creatinine 0.90 (0.60-1.20) mg/dL Est GFR ( Amer) > 60 (> 60) Est GFR (Non-Af Amer) 60 (> 60) BUN/Creatinine Ratio 41 H (6-26) Glucose 150 H (70-105) mg/dL Calculated Osmolality 294 (280-300) Calcium 9.2 (8.6-10.3) mg/dL Total Bilirubin 0.6 (0.3-1.0) mg/dL Direct Bilirubin 0.1 (0.0-0.2) mg/dL Indirect Bilirubin 0.5 (0.0-1.2) mg/dL AST 21 (13-39) Units/L ALT 10 (7-52) Units/L Alkaline Phosphatase 158 H (34-104) Units/L Serum Total Protein 7.0 (6.4-8.9) g/dL Albumin 3.8 (3.5-5.7) g/dL Globulin 3.2 (2.4-3.5) g/dL Albumin/Globulin Ratio 1.2 (1.1-2.2) Urine Color (Yellow) Urine Clarity (Clear) Urine pH (5.0-8.0) pH Units Ur Specific [place] (1.010-1.025) Urine Protein (Neg-Trace) mg/dL Urine Glucose (UA) (Normal) mg/dL Urine Ketones (Negative) mg/dL Urine Blood (Negative) Urine Nitrite (Negative) Urine Bilirubin (Negative) Urine Urobilinogen (Normal) mg/dL Ur Leukocyte Esterase (Negative) Urine Microscopic RBC (0-3) per hpf Urine Microscopic WBC (0-3) per hpf Ur Squamous Epith Cells (None-Few) per lpf Urine Bacteria (None-Few) per hpf Ur Culture Indicated? (NO) Blood Type Antibody Screen 11/25/18 11/25/18 Range/Units 07:26 08:18 WBC (4.3-11.1) K/mcL RBC (3.82-4.97) M/mcL Hgb (11.5-15.4) g/dL Hct (35.3-44.9) % MCV (83.0-100.0) fL MCH (28.0-33.3) pg MCHC (31.6-35.5) g/dL RDW (11.5-14.5) % Plt Count (140-400) K/mcL MPV (9.4-12.4) fL Immature Gran % (0-4) % Seg Neutrophils % % Lymphocytes % % Monocytes % % Eosinophils % % Basophils % % Neutrophils # (1.6-8.9) K/mcL Lymphocytes # (0.6-4.6) K/mcL Monocytes # (0.0-1.3) K/mcL Eosinophils # (0.0-0.6) K/mcL Basophils # (0.0-0.2) K/mcL PT (9.4-12.1) Seconds INR APTT (26.0-36.0) Seconds Sodium (136-145) mEq/L Potassium (3.5-5.1) mEq/L Chloride (98-107) mEq/L Carbon Dioxide (23-29) mEq/L BUN (8-23) mg/dL Creatinine (0.60-1.20) mg/dL Est GFR ( Amer) (> 60) Est GFR (Non-Af Amer) (> 60) BUN/Creatinine Ratio (6-26) Glucose (70-105) mg/dL Calculated Osmolality (280-300) Calcium (8.6-10.3) mg/dL Total Bilirubin (0.3-1.0) mg/dL Direct Bilirubin (0.0-0.2) mg/dL Indirect Bilirubin (0.0-1.2) mg/dL AST (13-39) Units/L ALT (7-52) Units/L Alkaline Phosphatase (34-104) Units/L Serum Total Protein (6.4-8.9) g/dL Albumin (3.5-5.7) g/dL Globulin (2.4-3.5) g/dL Albumin/Globulin Ratio (1.1-2.2) Urine Color Red A (Yellow) Urine Clarity Cloudy A (Clear) Urine pH 6.5 (5.0-8.0) pH Units Ur Specific [place] 1.028 H (1.010-1.025) Urine Protein >=1000 H (Neg-Trace) mg/dL Urine Glucose (UA) Normal (Normal) mg/dL Urine Ketones Negative (Negative) mg/dL Urine Blood Large H (Negative) Urine Nitrite Negative (Negative) Urine Bilirubin Negative (Negative) Urine Urobilinogen Normal (Normal) mg/dL Ur Leukocyte Esterase Small H (Negative) Urine Microscopic RBC TNTC H (0-3) per hpf Urine Microscopic WBC Present (0-3) per hpf Ur Squamous Epith Cells Present (None-Few) per lpf Urine Bacteria Present (None-Few) per hpf Ur Culture Indicated? YES A (NO) Blood Type O POSITIVE Antibody Screen NEGATIVE - Radiology Data Radiology results reviewed: Yes I reviewed the patient's radiology results. Abdomen/Pelvis CT 11/25/18 08:11 IMPRESSION: 1. Large amount of hyperdensity within the bladder suggesting hemorrhagic etiology. Underlying neoplasm is not excluded. Recommend direct visual inspection. 2. Diverticulosis. 3. Bilateral femoral head avascular necrosis. 4. Subacute-remote right sacral ala stress fracture. D/ / 11/25/2018 09:31:42 Javy Stevenson MD / [email or web address] Interpreting Provider: Javy Stevenson MD - EKG Data EKG #1 EKG attestation: Yes I reviewed and interpreted this EKG. EKG shows normal: sinus rhythm Rate: tachycardia Rhythm: NSR [place]/QRS: normal T wave inversions noted in: III Interpretation: nonspecific ST-T wave changes Attestation Statement - Attestation Attestation: Patient was evaluated by myself in conjunction with the advanced doctor of nurse anesthesia practice. The patient at this point in time has no abdominal pain and my examination, she is resting here comfortably, she does have hematuria. The patient will be admitted for further evaluation regarding this. Patient otherwise is stable in the emergency room. No evidence of sepsis.
[2018-11-25 06:09] LABS: Basophils % 0.3 %; Eosinophils # 0.2 K/mcL (0.0-0.6); Eosinophils % 2.1 %; Hematocrit 36.3 % (35.3-44.9); Hemoglobin 12.3 g/dL (11.5-15.4); Immature Granulocytes % 0.2 % (0-4); Lymphocytes # 1.7 K/mcL (0.6-4.6); Lymphocytes % 18.9 %; Mean Corpuscular HGB Conc 33.9 g/dL (31.6-35.5); Mean Corpuscular Hemoglobin 28.1 pg (28.0-33.3); Mean Corpuscular Volume 82.9 fL (83.0-100.0); Mean Platelet Volume 10.2 fL (9.4-12.4); Monocytes # 0.6 K/mcL (0.0-1.3); Monocytes % 6.7 %; Neutrophils # 6.4 K/mcL (1.6-8.9); Platelet Count 136 K/mcL (140-400); Red Blood Count 4.38 M/mcL (3.82-4.97); Red Cell Distribution Width 13.2 % (11.5-14.5); Segmented Neutrophils % 71.8 %
[2018-11-25 06:16] LABS: INR 1.1; Prothrombin Time 12.6 Seconds (9.4-12.1)
[2018-11-25 06:19] LABS: Activated Partial Thrombo Time 35.5 Seconds (26.0-36.0)
[2018-11-25 06:31] LABS: Alanine Aminotransferase 10 Units/L (7-52); Albumin 3.8 g/dL (3.5-5.7); Albumin/Globulin Ratio 1.2 (1.1-2.2); Alkaline Phosphatase 158 Units/L (34-104); Aspartate Amino Transferase 21 Units/L (13-39); BUN/Creatinine Ratio 41 (6-26); Bilirubin,Direct 0.1 mg/dL (0.0-0.2); Bilirubin,Indirect 0.5 mg/dL (0.0-1.2); Bilirubin,Total 0.6 mg/dL (0.3-1.0); Blood Urea Nitrogen 37 mg/dL (8-23); Calcium 9.2 mg/dL (8.6-10.3); Carbon Dioxide 22 mEq/L (23-29); Chloride 106 mEq/L (98-107); Globulin 3.2 g/dL (2.4-3.5); Glucose 150 mg/dL (70-105); Osmolality,Calculated 294 (280-300); Potassium 4.1 mEq/L (3.5-5.1); Sodium 136 mEq/L (136-145); eGFR For African Americans > 60 (> 60); eGFR For Non-African Americans 60 (> 60)
[2018-11-25 08:48] LABS: Bilirubin,Urine Negative (Negative); Blood,Urine Large (Negative); Clarity,Urine Cloudy (Clear); Glucose,Urine (UA) Normal (Normal); Ketones,Urine Negative (Negative); Leukocyte Esterase,Urine Small (Negative); Nitrite,Urine Negative (Negative); PH,Urine 6.5 pH Units (5.0-8.0); Protein,Urine >=1000 mg/dL (Neg-Trace); Specific Gravity,Urine 1.028 (1.010-1.025); Urobilinogen,Urine Normal (Normal)
[2018-11-25 08:49] LABS: Color,Urine Red (Yellow)
[2018-11-25 08:54] LABS: Bacteria,Urine Present per hpf (None-Few); RBC,Urine TNTC per hpf (0-3); Squamous Epithelial Cell,Urine Present per lpf (None-Few); WBC,Urine Present per hpf (0-3)
[2018-11-25] MEDS ORDERED: OXYCODONE Oral CONC 10 MG/0.5 ML ORAL.SYG SL ONE (10:48)
--- NOTE | 2018-11-25 10:48 | Urology - Consult Note ---
<Jolie Mitchell N - Last Filed: 11/25/18 10:45> Date of Encounter: 11/25/18 Time of Encounter: 10:15 - Assessment and Plan (1) Hemorrhagic cystitis Current Visit: Yes Status: Acute Assessment and plan: Patient is an 83-year-old female who presents with gross hematuria. Patient with a recent history of [id number] VRE urinary tract infection. I reviewed CT findings with patient at bedside and explained she has large clots in her bladder that must be removed. Vital signs are stable and afebrile. Hemo globin is stable. I removed the 16[place] catheter and replaced a 24[place] hematuria catheter. I was able to irrigate 500 mL's of sterile water with a large return of clot. I attached CBI tubing, and patient tolerated well. Dr. Campos will be in to reevaluate patient. Urology CN:[facility] Consult date: 11/25/18 Reason for consult Urology: Gross Hematuria Requesting physician: Gini Paulino History of present illness: Patient is an 83-year-old female who presents with gross hematuria. Patient reports she is status post vaginal hysterectomy for benign prolapse. Patient reports she noticed bleeding this morning and has intermittently noticed vaginal bleeding over the last several months. Patient was recently admitted on 11/11/2018 for VRE urinary tract infection. Patient was subsequently discharged to [place] with oral Zyvox. Patient states she completed antibiotic course, and she denies any dysuria, flank pain, fever, chills. Patient admits to chronic fecal and urinary incontinence and wears depends daily. Patient denies any history of renal stones. Patient denies history of smoking. Patient denies any known family history of malignancy. Patient underwent a CT of the abdomen and pelvis revealing a large bladder hematoma. Patient currently is sitting upright in bed with an indwelling 16[place] catheter. Past Med Surg Social Fam HX - Past Medical History Medical history: arthritis, hyperlipidemia, hypertension, osteoporosis, other (UTI - VRE) Additional medical history: multiple falls, L1 vertebral fx Psychiatric history: no psych history - Past Surgical History Surgical History: appendectomy, hysterectomy, knee replacement Additional surgical history: bilateraly knee replacement. lumpectomy to left breast - Social History Smoking Status: Never smoker Smokeless Tobacco Status: No Alcohol use: none Drug use: none - Family History Mother Adopted: No Family Member Ethnicity: Non- Living Status: Hx Family Cardiac Disorders: Yes (heart condition) Hx Family Respiratory Disorders: No Hx Family Cancer: Yes Hx Family GI Disorders: No Hx Family Endocrine Disorder: No Hx Family Neuromuscular Disorders: No Hx Family Neurologic Disorders: No Hx Family HEENT Disorders: No Hx Family Autoimmune Disorders: No Father Living Status: Hx Family Cancer: Yes Medications and Allergies Aspirin [Lo-Dose Aspirin EC] 81 mg PO DAILY 08/19/16 [History] Carvedilol [Coreg] 6.25 mg PO BID 08/19/16 [History] Potassium Chloride [Klor-Con 10] 10 meq PO BID 08/19/16 [History] Simvastatin [Zocor] 10 mg PO HS 08/19/16 [History] Famotidine [Pepcid] 40 mg PO DAILY 12/27/17 [History] Acetaminophen [Non-Aspirin] 650 mg PO BID PRN 06/09/18 [History] Ferrous Gluconate 324 mg PO DAILY 06/09/18 [History] Loperamide [Imodium] 2 mg PO Q6H PRN 06/09/18 [History] Cyanocobalamin (B-12) [Vitamin B12] 1,000 mcg IM QMONTH 11/11/18 [History] Docusate [Colace] 100 mg PO BID PRN 11/11/18 [History] Meloxicam [Mobic] 15 mg PO DAILY 11/11/18 [History] Polyethylene Glycol 3350 [MiraLAX] 17 gm PO DAILY PRN 11/11/18 [History] Linezolid [Zyvox] 600 mg PO BID #10 tablet 11/13/18 [Rx] Allergy/AdvReac Type Severity Reaction Status Date / Time Sulfa (Sulfonamide Allergy Rash Verified 11/11/18 23:10 Antibiotics) Cyclobenzaprine AdvReac Confusion Verified 05/30/18 06:40 [From Flexeril] Review of Systems - Constitutional no chills, no fatigue, no fever(s) - EENT Nose, mouth and throat: no dizziness, no headache(s) - Cardiovascular no chest pain, no diaphoresis, no dyspnea - Respiratory no cough, no dyspnea - Gastrointestinal no abdominal pain, no nausea, no vomiting - Genitourinary Genitourinary: hematuria, no change in urinary stream, no dysuria, no flank pain, no urinary frequency, no urinary hesitancy, no urinary incontinence, no urinary urgency Menstruation: post hysterectomy - Musculoskeletal no back pain, no muscle weakness - Integumentary no erythema, no rash - Neurological no confusion, no sensory deficit - Psychiatric confusion, no anxiety - Hematologic/Lymphatic no easy bleeding, no easy bruising - Allergic/Immunologic no throat swelling, no wheezing Exam Initial Vital Signs Temp Pulse Resp BP Pulse Ox 97.4 F L 110 18 133/99 97 11/25/18 05:24 11/25/18 05:24 11/25/18 05:24 11/25/18 05:24 11/25/18 05:24 - General physical appearance Present: no distress, moderate pain - Eyes Present: PERRL, normal ocular movement - ENT Present: normal nares, no congestion, decreased hearing - Neck Present: no masses, trachea midline, no lymphadenopathy - Respiratory Present: normal respiratory effort - Cardiovascular Cardiovascular exam IM: tachycardia - Abdomen Abdomen: Present: soft, non tender. Absent: distended - Genitourinary Present: other - Integumentary Present: no rash, no abnormal pigmentation - Neurologic Present: normal coordination - Musculoskeletal Present: other (normal posture ) Urology Results - Labs 11/25/18 05:59 11/25/18 05:59 Abnormal lab results MCV 82.9 fL (83.0-100.0) L 11/25/18 05:59 Plt Count 136 K/mcL (140-400) L 11/25/18 05:59 PT 12.6 Seconds (9.4-12.1) H 11/25/18 05:59 Carbon Dioxide 22 mEq/L (23-29) L 11/25/18 05:59 BUN 37 mg/dL (8-23) H 11/25/18 05:59 41 (6-26) H 11/25/18 05:59 Glucose 150 mg/dL (70-105) H 11/25/18 05:59 158 Units/L (34-104) H 11/25/18 05:59 Red (Yellow) A 11/25/18 08:18 Cloudy (Clear) A 11/25/18 08:18 Ur Specific [place] 1.028 (1.010-1.025) H 11/25/18 08:18 >=1000 mg/dL (Neg-Trace) H 11/25/18 08:18 Large (Negative) H 11/25/18 08:18 Ur Leukocyte Esterase Small (Negative) H 11/25/18 08:18 TNTC per hpf (0-3) H 11/25/18 08:18 Ur Culture Indicated? YES (NO) A 11/25/18 08:18 Diabetes panel 11/25/18 Range/Units 05:59 Sodium 136 (136-145) mEq/L Potassium 4.1 (3.5-5.1) mEq/L Chloride 106 (98-107) mEq/L Carbon Dioxide 22 L (23-29) mEq/L BUN 37 H (8-23) mg/dL Creatinine 0.90 (0.60-1.20) mg/dL Glucose 150 H (70-105) mg/dL Calcium 9.2 (8.6-10.3) mg/dL AST 21 (13-39) Units/L ALT 10 (7-52) Units/L Alkaline Phosphatase 158 H (34-104) Units/L Albumin 3.8 (3.5-5.7) g/dL Calcium panel 11/25/18 Range/Units 05:59 Calcium 9.2 (8.6-10.3) mg/dL Albumin 3.8 (3.5-5.7) g/dL Pituitary panel 11/25/18 Range/Units 05:59 Sodium 136 (136-145) mEq/L Potassium 4.1 (3.5-5.1) mEq/L Chloride 106 (98-107) mEq/L Carbon Dioxide 22 L (23-29) mEq/L BUN 37 H (8-23) mg/dL Creatinine 0.90 (0.60-1.20) mg/dL Glucose 150 H (70-105) mg/dL Calcium 9.2 (8.6-10.3) mg/dL Adrenal panel 11/25/18 Range/Units 05:59 Sodium 136 (136-145) mEq/L Potassium 4.1 (3.5-5.1) mEq/L Chloride 106 (98-107) mEq/L Carbon Dioxide 22 L (23-29) mEq/L BUN 37 H (8-23) mg/dL Creatinine 0.90 (0.60-1.20) mg/dL Glucose 150 H (70-105) mg/dL Calcium 9.2 (8.6-10.3) mg/dL Total Bilirubin 0.6 (0.3-1.0) mg/dL AST 21 (13-39) Units/L ALT 10 (7-52) Units/L Alkaline Phosphatase 158 H (34-104) Units/L Albumin 3.8 (3.5-5.7) g/dL All other labs normal. - Imaging CT scan - abdomen: report reviewed, image reviewed CT scan - pelvis: report reviewed, image reviewed Procedures:Urology - Bladder Irrigation/Clot Evacuation Consent obtained: verbal consent Irrigation: other (sterile water) Patient tolerated procedure: well Continuous Bladder Irrigation: Yes (ordered; communicated with nursing staff) Complications: pain - Catheter Insertion (Urinary) Bladder Scan/Ultrasound used before catheterization: No Estimated amount of urin (mLs): 50 Preparation: Povidone-Iodine Type of catheter inserted: 3 way, silastic Catheter [place] Size: 24 Topical anesthesia used: No Results: successfully catheterized-immediate flow Urine Appearance: Hematuria, Large Blood Clots Patient tolerated procedure: well, no complications Complications: none Additional comments: Patient in supine position. Patient prepped and draped in normal sterile fashion. I removed the 16[place] Gallegos catheter without difficulty. I placed a 24[place] three-way hematuria catheter without difficulty. I immediately noticed a return of wine colored, opaque blood. I then irrigated 500 mL of sterile water 3 patient's catheter port until urine became transparent fruit punch. I attached CBI tubing through the inflow port and placed a verbal order to the nursing staff to initiate continuous bladder irrigation. Patient ross rated well, although, she experienced pain with bladder irrigation. I placed a verbal order with patient's nurse for sublingual pain medicine after the procedure. Consult Discharge Plan - Plan Referrals: Cem Dorantes MD [Primary Care Provider] - <Rafy Campos - Last Filed: 11/25/18 13:30> Date of Encounter: 11/25/18 Urology CN:HPI History of present illness: Patient was seen and evaluated individually. I agree with the plan as written by Jolie Mitchell. I was present for procedure. I manually irrigated the patient's bladder with no additional clots seen. Patient will need to continue with continuous bladder irrigation at this time. Will reevaluate tomorrow morning with additional manual irrigation. Exam Initial Vital Signs Temp Pulse Resp BP Pulse Ox 97.4 F L 110 18 133/99 97 11/25/18 05:24 11/25/18 05:24 11/25/18 05:24 11/25/18 05:24 11/25/18 05:24 Urology Results - Labs 11/25/18 05:59 11/25/18 05:59 Abnormal lab results MCV 82.9 fL (83.0-100.0) L 11/25/18 05:59 Plt Count 136 K/mcL (140-400) L 11/25/18 05:59 PT 12.6 Seconds (9.4-12.1) H 11/25/18 05:59 Carbon Dioxide 22 mEq/L (23-29) L 11/25/18 05:59 BUN 37 mg/dL (8-23) H 11/25/18 05:59 41 (6-26) H 11/25/18 05:59 Glucose 150 mg/dL (70-105) H 11/25/18 05:59 158 Units/L (34-104) H 11/25/18 05:59 Ur Specimen Adequacy See below A 11/25/18 08:18 Red (Yellow) A 11/25/18 08:18 Cloudy (Clear) A 11/25/18 08:18 Ur Specific [place] 1.028 (1.010-1.025) H 11/25/18 08:18 >=1000 mg/dL (Neg-Trace) H 11/25/18 08:18 Large (Negative) H 11/25/18 08:18 Ur Leukocyte Esterase Small (Negative) H 11/25/18 08:18 TNTC per hpf (0-3) H 11/25/18 08:18 Ur Culture Indicated? YES (NO) A 11/25/18 08:18 Diabetes panel 11/25/18 Range/Units 05:59 Sodium 136 (136-145) mEq/L Potassium 4.1 (3.5-5.1) mEq/L Chloride 106 (98-107) mEq/L Carbon Dioxide 22 L (23-29) mEq/L BUN 37 H (8-23) mg/dL Creatinine 0.90 (0.60-1.20) mg/dL Glucose 150 H (70-105) mg/dL Calcium 9.2 (8.6-10.3) mg/dL AST 21 (13-39) Units/L ALT 10 (7-52) Units/L Alkaline Phosphatase 158 H (34-104) Units/L Albumin 3.8 (3.5-5.7) g/dL Calcium panel 11/25/18 Range/Units 05:59 Calcium 9.2 (8.6-10.3) mg/dL Albumin 3.8 (3.5-5.7) g/dL Pituitary panel 11/25/18 Range/Units 05:59 Sodium 136 (136-145) mEq/L Potassium 4.1 (3.5-5.1) mEq/L Chloride 106 (98-107) mEq/L Carbon Dioxide 22 L (23-29) mEq/L BUN 37 H (8-23) mg/dL Creatinine 0.90 (0.60-1.20) mg/dL Glucose 150 H (70-105) mg/dL Calcium 9.2 (8.6-10.3) mg/dL Adrenal panel 11/25/18 Range/Units 05:59 Sodium 136 (136-145) mEq/L Potassium 4.1 (3.5-5.1) mEq/L Chloride 106 (98-107) mEq/L Carbon Dioxide 22 L (23-29) mEq/L BUN 37 H (8-23) mg/dL Creatinine 0.90 (0.60-1.20) mg/dL Glucose 150 H (70-105) mg/dL Calcium 9.2 (8.6-10.3) mg/dL Total Bilirubin 0.6 (0.3-1.0) mg/dL AST 21 (13-39) Units/L ALT 10 (7-52) Units/L Alkaline Phosphatase 158 H (34-104) Units/L Albumin 3.8 (3.5-5.7) g/dL All other labs normal.
--- NOTE | 2018-11-25 13:42 | Internal Med History&Physical ---
Date of Encounter: 11/25/18 Time of Encounter: 13:42 Internal Medicine - H&P: HPI Chief complaint: gross hematuria. History of present illness: Ludy Hollins is an 83 F w hx HTN, HLD, GERD, OA, osteoporosis, who was just D/C from the hospital after she was evaluated for frequent falls and VRE UTI. The patient was D/C on Zyvox and conservative management of compression and nondisplaced rib fractures with pain control and rehab arrangement. Patient presented today from [place] for evaluation of possible vaginal bleeding. The patient is confused and could not provide history. She was evaluated by the ER staff and vaginal bleeding was R/O and patient apparently has gross hematuria. Urology was consulted for further evaluation and management. Past Med Surg Social Fam HX - Past Medical History Medical history: arthritis, hyperlipidemia, hypertension, osteoporosis, other (UTI - VRE) Additional medical history: multiple falls, L1 vertebral fx Psychiatric history: no psych history - Past Surgical History Surgical History: appendectomy, hysterectomy, knee replacement Additional surgical history: bilateraly knee replacement. lumpectomy to left breast - Social History Smoking Status: Never smoker Smokeless Tobacco Status: No Alcohol use: none Drug use: none - Family History Mother Adopted: No Family Member Ethnicity: Non- Living Status: Hx Family Cardiac Disorders: Yes (heart condition) Hx Family Respiratory Disorders: No Hx Family Cancer: Yes Hx Family GI Disorders: No Hx Family Endocrine Disorder: No Hx Family Neuromuscular Disorders: No Hx Family Neurologic Disorders: No Hx Family HEENT Disorders: No Hx Family Autoimmune Disorders: No Father Living Status: Hx Family Cancer: Yes Internal Medicine - H&P: Meds Aspirin [Lo-Dose Aspirin EC] 81 mg PO DAILY 08/19/16 [History] Carvedilol [Coreg] 6.25 mg PO BID 08/19/16 [History] Potassium Chloride [Klor-Con 10] 10 meq PO BID 08/19/16 [History] Simvastatin [Zocor] 10 mg PO HS 08/19/16 [History] Famotidine [Pepcid] 40 mg PO DAILY 12/27/17 [History] Acetaminophen [Non-Aspirin] 650 mg PO BID PRN 06/09/18 [History] Ferrous Gluconate 324 mg PO DAILY 06/09/18 [History] Loperamide [Imodium] 2 mg PO Q6H PRN 06/09/18 [History] Cyanocobalamin (B-12) [Vitamin B12] 1,000 mcg IM QMONTH 11/11/18 [History] Docusate [Colace] 100 mg PO BID PRN 11/11/18 [History] Polyethylene Glycol 3350 [MiraLAX] 17 gm PO DAILY PRN 11/11/18 [History] Meloxicam [Mobic] 15 mg PO DAILY PRN #0 11/28/18 [Rx] levoFLOXacin [Levaquin] 500 mg PO DAILY #6 tablet 11/28/18 [Rx] Allergy/AdvReac Type Severity Reaction Status Date / Time Sulfa (Sulfonamide Allergy Rash Verified 11/26/18 07:54 Antibiotics) Cyclobenzaprine AdvReac Confusion Verified 11/26/18 07:54 [From Flexeril] ROS unobtainable: due to mental status - Constitutional Vitals: Temp Pulse Resp BP Pulse Ox 99.1 F 108 18 143/82 99 11/25/18 12:11 11/25/18 12:11 11/25/18 12:11 11/25/18 12:11 11/25/18 12:11 General appearance: Present: A&O X 0 Exam: ` - Head Head exam: Present: atraumatic, normocephalic - Neck Neck exam general surgery: Present: supple, trachea midline. Absent: lymphadenopathy - Respiratory Respiratory exam: Present: CTAB. Absent: accessory muscle use, rales, rhonchi, wheezes - Cardiovascular Cardiovascular exam: Present: RRR, +S1, +S2. Absent: diastolic murmur, gallop, rubs, systolic murmur - GI/Abdominal GI/Abdominal exam: Present: normal bowel sounds, soft, no peritoneal signs. Absent: distended, tenderness - Extremities Exam Extremities exam: Present: warm, radial pulses palpable and symmetrical. Absent: calf tenderness, cyanotic, pedal edema Internal Med - H&P Results - Labs CBC & Chem 7: 11/28/18 10:00 11/28/18 02:55 Labs: Short CBC 11/25/18 Range/Units 05:59 WBC 9.0 (4.3-11.1) K/mcL Hgb 12.3 (11.5-15.4) g/dL Hct 36.3 (35.3-44.9) % Plt Count 136 L (140-400) K/mcL Neutrophils # 6.4 (1.6-8.9) K/mcL BMP 11/25/18 05:59 Sodium 136 Potassium 4.1 Chloride 106 Carbon Dioxide 22 L BUN 37 H Creatinine 0.90 Glucose 150 H Calcium 9.2 Liver Function 11/25/18 Range/Units 05:59 Total Bilirubin 0.6 (0.3-1.0) mg/dL Direct Bilirubin 0.1 (0.0-0.2) mg/dL AST 21 (13-39) Units/L ALT 10 (7-52) Units/L Alkaline Phosphatase 158 H (34-104) Units/L Albumin 3.8 (3.5-5.7) g/dL Urine 11/25/18 Range/Units 08:18 Urine Color Red A (Yellow) Urine Clarity Cloudy A (Clear) Urine pH 6.5 (5.0-8.0) pH Units Ur Specific [place] 1.028 H (1.010-1.025) Urine Protein >=1000 H (Neg-Trace) mg/dL Urine Glucose (UA) Normal (Normal) mg/dL - Impressions ITS Impressions Abdomen/Pelvis CT 11/25/18 08:11 IMPRESSION: 1. Large amount of hyperdensity within the bladder suggesting hemorrhagic etiology. Underlying neoplasm is not excluded. Recommend direct visual inspection. 2. Diverticulosis. 3. Bilateral femoral head avascular necrosis. 4. Subacute-remote right sacral ala stress fracture. D/ / 11/25/2018 09:31:42 Javy Stevenson [facility] Interpreting Provider: Javy Stevenson MD - Assessment and Plan (1) Hemorrhagic cystitis Status: Acute Assessment and plan: Most likely 2/2 [id number] VRE urinary tract infection. CT findings revealed large clots in her bladder, the patient is s/p bladder irrigation by urology. We will start the patient on Daptomycin based on her recemt Cx results. (2) Hypertension Status: Chronic Assessment and plan: We will cont. home meds and monitor blood pressure as an inpatient and adjust regimen when indicated Qualifiers: Qualified Code(s): I10 - Essential (primary) hypertension (3) Dyslipidemia Status: Chronic Assessment and plan: We will cont. home satin and obtain FLP in Am (4) DVT prophylaxis Status: Acute Assessment and plan: We will place SCDs (5) Thoracic compression fracture Status: Acute Assessment and plan: conservative management with pain control and rehab arrangement. Qualifiers: Encounter type: initial encounter Thoracic vertebra fracture level: T4 Qualified Code(s): S22.040A - Wedge compression fracture of fourth thoracic vertebra, initial encounter for closed fracture (6) DVT prophylaxis Status: Acute - Time Spent With Patient Total time spent is greater than 50% in coordination of care (as documented) at patient's floor/unit and/or counseling patient:
[2018-11-25] MEDS ORDERED: Acetaminophen 325 MG TABLET PO PRN (15:08)
[2018-11-25] MEDS ORDERED: Naloxone 0.4 MG/ML INJ IVP PRN (15:08)
[2018-11-25] MEDS ORDERED: Ondansetron 4 MG/2 ML VIAL IVP PRN (15:08)
[2018-11-25] MEDS: *HR* HYDROcodone/Acet 5/325 mg TABLET PO PRN (17:01)
[2018-11-25] MEDS: 0.9 % Sodium Chloride 1,000 ML IVC SCH (17:01)
[2018-11-25] MEDS ORDERED: DAPTOmycin 500 MG in 0.9 % Sodium Chloride 100 ML IVPB SCH (20:00)
[2018-11-26] MEDS ORDERED: Acetaminophen 325 MG TABLET PO PRN (04:49)
[2018-11-26] MEDS ORDERED: Cyanocobalamin (B-12) 1,000 MCG/ML VIAL IM SCH (05:00)
[2018-11-26 05:26] LABS: Basophils % 0.5 %; Immature Granulocytes % 0.2 % (0-4); Red Cell Distribution Width 13.4 % (11.5-14.5)
[2018-11-26 05:28] LABS: Eosinophils # 0.3 K/mcL (0.0-0.6); Eosinophils % 4.2 %; Hematocrit 29.8 % (35.3-44.9); Immature Platelets 2.5 % (1.1-6.1); Lymphocytes # 2.2 K/mcL (0.6-4.6); Lymphocytes % 36.8 %; Mean Corpuscular HGB Conc 33.6 g/dL (31.6-35.5); Mean Corpuscular Hemoglobin 28.5 pg (28.0-33.3); Mean Corpuscular Volume 84.9 fL (83.0-100.0); Mean Platelet Volume 9.9 fL (9.4-12.4); Monocytes # 0.6 K/mcL (0.0-1.3); Monocytes % 9.6 %; Neutrophils # 2.9 K/mcL (1.6-8.9); Red Blood Count 3.51 M/mcL (3.82-4.97); Segmented Neutrophils % 48.7 %; White Blood Count 5.9 K/mcL (4.3-11.1)
[2018-11-26 05:31] LABS: Platelet Count 96 K/mcL (140-400)
[2018-11-26 05:40] LABS: INR 1.2
[2018-11-26 05:43] LABS: Activated Partial Thrombo Time 33.5 Seconds (26.0-36.0)
[2018-11-26 05:44] LABS: Alanine Aminotransferase 7 Units/L (7-52); Albumin 3.3 g/dL (3.5-5.7); Albumin/Globulin Ratio 1.4 (1.1-2.2); Alkaline Phosphatase 125 Units/L (34-104); Aspartate Amino Transferase 17 Units/L (13-39); BUN/Creatinine Ratio 55 (6-26); Bilirubin,Total 0.7 mg/dL (0.3-1.0); Blood Urea Nitrogen 34 mg/dL (8-23); Calcium 8.4 mg/dL (8.6-10.3); Carbon Dioxide 22 mEq/L (23-29); Chloride 109 mEq/L (98-107); Chol/HDL Ratio 3.1 (0-4.9); Cholesterol 115 mg/dL (< 200); Globulin 2.4 g/dL (2.4-3.5); Glucose 88 mg/dL (70-105); HDL Cholesterol 37 mg/dL (40-59); LDL Cholesterol,Calculated 57 mg/dL (0-99); Magnesium 1.7 mg/dL (1.6-2.6); Osmolality,Calculated 299 (280-300); Phosphorous 3.4 mg/dL (2.7-4.5); Potassium 3.8 mEq/L (3.5-5.1); Sodium 141 mEq/L (136-145); Total Protein 5.7 g/dL (6.4-8.9); Triglycerides 103 mg/dL (< 150); eGFR For African Americans > 60 (> 60); eGFR For Non-African Americans > 60 (> 60)
[2018-11-26 06:21] LABS: Platelet Estimate Decreased (Normal)
[2018-11-26] MEDS: Famotidine 20 MG TABLET PO SCH (08:11)
[2018-11-26] MEDS: 0.9 % Sodium Chloride 1,000 ML IVC SCH (08:12)
[2018-11-26] MEDS: Aspirin Enteric Coated 81 MG Tablet PO SCH (08:12)
--- NOTE | 2018-11-26 08:30 | Urology Progress Note ---
Date of Encounter: 11/26/18 Time of Encounter: 08:27 - Assessment and Plan (1) Acute cystitis with hematuria Current Visit: Yes Status: Acute Assessment and plan: Patient's urine appears to be growing gram-negative rods. Continue broad- spectrum antimicrobial coverage until cultures return. (2) Hemorrhagic cystitis Current Visit: Yes Status: Acute Assessment and plan: Patient no longer requiring continuous bladder irrigation as urine has cleared. We will keep hematuria catheter in place until tomorrow. May consider removal tomorrow if urine remains clear. Progress Note Narrative: Patient seen this morning. Patient confused. Does not know if it is evening or morning. Objective Initial Vital Signs Temp Pulse Resp BP Pulse Ox 97.4 F L 110 18 133/99 97 11/25/18 05:24 11/25/18 05:24 11/25/18 05:24 11/25/18 05:24 11/25/18 05:24 General/Neuological: alert and pleasantly confused Eyes: normal pupils, non-icteric Neck: no lymphadenopathy noted, supple to touch ABD: soft, nontender, no masses palpated, : Hematuria catheter in place without irrigation and clear urine Back: no pain on percussion bilaterally Skin: no rashes noted Musculoskeletal: normal gait, FROMx4 - Labs 11/26/18 04:39 11/26/18 04:39 Diabetes panel 11/26/18 Range/Units 04:39 Sodium 141 (136-145) mEq/L Potassium 3.8 (3.5-5.1) mEq/L Chloride 109 H (98-107) mEq/L Carbon Dioxide 22 L (23-29) mEq/L BUN 34 H (8-23) mg/dL Creatinine 0.62 (0.60-1.20) mg/dL Glucose 88 (70-105) mg/dL Calcium 8.4 L (8.6-10.3) mg/dL AST 17 (13-39) Units/L ALT 7 (7-52) Units/L Alkaline Phosphatase 125 H (34-104) Units/L Albumin 3.3 L (3.5-5.7) g/dL Triglycerides 103 (< 150) mg/dL HDL Cholesterol 37 L (40-59) mg/dL Calcium panel 11/26/18 Range/Units 04:39 Calcium 8.4 L (8.6-10.3) mg/dL Phosphorus 3.4 (2.7-4.5) mg/dL Albumin 3.3 L (3.5-5.7) g/dL Pituitary panel 11/26/18 Range/Units 04:39 Sodium 141 (136-145) mEq/L Potassium 3.8 (3.5-5.1) mEq/L Chloride 109 H (98-107) mEq/L Carbon Dioxide 22 L (23-29) mEq/L BUN 34 H (8-23) mg/dL Creatinine 0.62 (0.60-1.20) mg/dL Glucose 88 (70-105) mg/dL Calcium 8.4 L (8.6-10.3) mg/dL Adrenal panel 11/26/18 Range/Units 04:39 Sodium 141 (136-145) mEq/L Potassium 3.8 (3.5-5.1) mEq/L Chloride 109 H (98-107) mEq/L Carbon Dioxide 22 L (23-29) mEq/L BUN 34 H (8-23) mg/dL Creatinine 0.62 (0.60-1.20) mg/dL Glucose 88 (70-105) mg/dL Calcium 8.4 L (8.6-10.3) mg/dL Total Bilirubin 0.7 (0.3-1.0) mg/dL AST 17 (13-39) Units/L ALT 7 (7-52) Units/L Alkaline Phosphatase 125 H (34-104) Units/L Albumin 3.3 L (3.5-5.7) g/dL Consult Discharge Plan - Plan Referrals: Cem Dorantes MD [Primary Care Provider] -
--- NOTE | 2018-11-26 09:00 | Internal Med Progress Note ---
<Chacha Liu - Last Filed: 11/26/18 14:14> Hospitalist Progress Note - Encounter Date of Encounter: 11/26/18 - Exam Vitals: Temp Pulse Resp BP Pulse Ox 98.1 F 87 16 117/71 97 11/26/18 11:00 11/26/18 11:00 11/26/18 11:00 11/26/18 11:00 11/26/18 11:00 - Assessment and Plan (1) DVT prophylaxis Current Visit: No Status: Acute (2) Hypertension Current Visit: No Status: Chronic (3) DVT prophylaxis Current Visit: No Status: Acute (4) Dyslipidemia Current Visit: No Status: Chronic (5) Thoracic compression fracture Current Visit: No Status: Acute (6) Hemorrhagic cystitis Current Visit: Yes Status: Acute - Time Spent with Patient Total time spent is greater than 50% in coordination of care (as documented) at patient's floor/unit and/or counseling patient: Internal Medicine: Result - Labs CBC & Chem 7: 11/26/18 04:39 11/26/18 04:39 Labs: Short CBC 11/26/18 Range/Units 04:39 WBC 5.9 (4.3-11.1) K/mcL Hgb 10.0 L D (11.5-15.4) g/dL Hct 29.8 L (35.3-44.9) % Plt Count 96 L (140-400) K/mcL Neutrophils # 2.9 (1.6-8.9) K/mcL BMP 11/26/18 04:39 Sodium 141 Potassium 3.8 Chloride 109 H Carbon Dioxide 22 L BUN 34 H Creatinine 0.62 Glucose 88 Calcium 8.4 L Liver Function 11/26/18 Range/Units 04:39 Total Bilirubin 0.7 (0.3-1.0) mg/dL AST 17 (13-39) Units/L ALT 7 (7-52) Units/L Alkaline Phosphatase 125 H (34-104) Units/L Albumin 3.3 L (3.5-5.7) g/dL - ABG Interpretation ABG results: PT/INR, D-dimer PT 13.0 Seconds (9.4-12.1) H 11/26/18 04:39 - Impressions Impressions Abdomen/Pelvis CT 11/25/18 08:11 IMPRESSION: 1. Large amount of hyperdensity within the bladder suggesting hemorrhagic etiology. Underlying neoplasm is not excluded. Recommend direct visual inspection. 2. Diverticulosis. 3. Bilateral femoral head avascular necrosis. 4. Subacute-remote right sacral ala stress fracture. D/ / 11/25/2018 09:31:42 Javy Stevenson MD / lgray Interpreting Provider: Javy Stevenson MD Consult Discharge Plan - Plan Referrals: Cem Dorantes MD [Primary Care Provider] - - Attending Attestation I examined this patient and my medical decision-making was reviewed with the Resident Physician Dr Cho. I agree with the documented findings, disposition and treatment plan as described except to the extent set forth below. Ms Hollins is being observed for recurrent UTI and hemorrhagic cystitis awake, daughter at bedside. no abd pain, n/v or fevers, chills. + dysuria. no longer with hematuria or clots in mtz s/p CBI by urology. gen- alert, awake,appears stated age eyes- pupils equal round cv- reg rate and rhythm, normal s1,s2, no le edema lungs- ctabl, no wheezing, rhonchi or crackles, normal resp effort on ra abd- soft, non tender, non distended, + bs gu- mtz cath in place draining clear yellow urine neuro- AAOx3, CN grossly intact Hemorrhagic cystitis with acute anemia Recurrent UTI with most recent VRE -appreciate urology input, cont mtz cath today, kiersten remove in am, s/p CBI with cessation of hematuria, monitor hgb -she was initially started on daptomycin (was dc on linezolid last admit), Dr Gregorio has reviewed for microbial stewardship and verbally gave rec for rocephin- will cont to follow cxs and adjsut abx as needed Incidental bl avascular necrosis Also recent falls with compression and rib fxs -pt/ot and back to snf on dc -will refer for outpt ortho appt at dc further dx and plan as noted by resident <Magui Cho - Last Filed: 11/26/18 15:19> Hospitalist Progress Note - Encounter Date of Encounter: 11/26/18 Time of Encounter: 08:00 - Subjective Interval History: Patient seen and examined at bedside. She is resting comfortably sitting up in bed and her daughters of the bedside. The patient reports dysuria. She denies fever, chills, abdominal pain, chest pain, shortness of breath. She has no other complaints. - Exam Vitals: Temp Pulse Resp BP Pulse Ox 98.0 F 98 17 145/79 95 11/26/18 07:35 11/26/18 07:35 11/26/18 07:35 11/26/18 07:35 11/26/18 07:35 Exam: Gen.: Vitals noted. No acute distress. AAOx3 HEENT: oropharynx clear, Normocephalic, atraumatic Cardiac: RRR, no murmur, +S1/S2 Pulmonary: CTA bilaterally, no wheezes, rales or rhonchi, equal chest expansion Abdomen: soft, nontender, Bowel sounds noted, no guarding MSK: no joint swelling noted Extremities: no BLE edema, nontender calf, no cyanosis or clubbing Neuro: A&Ox3, moves all extremities, no focal deficits Psych: Appropriate mood and behavior - Assessment and Plan (1) Hemorrhagic cystitis Current Visit: Yes Status: Acute Assessment and Plan: Patient admitted for hemorrhagic cystitis. She has a past medical history significant for recurrent urinary tract infections with most recent admission on 11/11/2018 for VRE UTI treated with Zyvox. -Urology was consulted in the ED and placed a larger Mtz catheter to your [place] the bladder with sterile fluid to remove blood clot. They performed CBI. -Hemorrhagic cystitis is likely secondary to her recurrent urinary tract infections -Afebrile, hemodynamically stable -hemoglobin 10 -urinalysis showing leukocyte esterase, blood, RBC -urine culture growing GNR -Abdomen/pelvis CT showing large amount of blood within the bladder. Recommendations of direct visualization for possible underlying neoplasm. Dive rticulosis. Bilateral femoral head avascular necrosis. Subacute remote right sacral ala stress fracture. -Patient reporting symptoms of dysuria and urinary frequency Plan -Dr. Gregorio infectious disease physician had recommended that to follow with antibiotic stewardship he recommended that daptomycin be stopped and to start Rocephin 2gram to continue treatment for UTI. This was based on past urinary cultures -await urine culture -urology following. Continue Mtz catheter per urology -continue to monitor hemoglobin in bleeding -pyridium PRN dysuria -pain medication PRN (2) Hypertension Current Visit: No Status: Chronic Assessment and Plan: History of hypertension taking carvedilol 6.25 mg b.i.d. -blood pressure stable -continue home medication (3) Dyslipidemia Current Visit: No Status: Chronic Assessment and Plan: History of hyperlipidemia taking simvastatin -lipid panel unremarkable -continue home medication (4) UTI (urinary tract infection) Current Visit: No Status: Acute Assessment and Plan: History of frequent urinary tract infections. Please see hemorrhagic cystitis assessment. (5) Thoracic compression fracture Current Visit: No Status: Acute Assessment and Plan: History of compression fracture that the patient is currently undergoing PT/OT for rehabat [facility]. -Abdomen/pelvis CT showing Bilateral femoral head avascular necrosis. Subacute remote right sacral ala stress fracture. -Continue PT/OT -patient and follow-up with her orthopedic surgeon outpatient (6) DVT prophylaxis Current Visit: No Status: Acute Assessment and Plan: EPCD - Time Spent with Patient Total time spent is greater than 50% in coordination of care (as documented) at patient's floor/unit and/or counseling patient: Internal Medicine: Result - Labs CBC & Chem 7: 11/26/18 04:39 11/26/18 04:39 Labs: Short CBC 11/26/18 Range/Units 04:39 WBC 5.9 (4.3-11.1) K/mcL Hgb 10.0 L D (11.5-15.4) g/dL Hct 29.8 L (35.3-44.9) % Plt Count 96 L (140-400) K/mcL Neutrophils # 2.9 (1.6-8.9) K/mcL BMP 11/26/18 04:39 Sodium 141 Potassium 3.8 Chloride 109 H Carbon Dioxide 22 L BUN 34 H Creatinine 0.62 Glucose 88 Calcium 8.4 L Liver Function 11/26/18 Range/Units 04:39 Total Bilirubin 0.7 (0.3-1.0) mg/dL AST 17 (13-39) Units/L ALT 7 (7-52) Units/L Alkaline Phosphatase 125 H (34-104) Units/L Albumin 3.3 L (3.5-5.7) g/dL - ABG Interpretation ABG results: PT/INR, D-dimer PT 13.0 Seconds (9.4-12.1) H 11/26/18 04:39 - Impressions Impressions Abdomen/Pelvis CT 11/25/18 08:11 IMPRESSION: 1. Large amount of hyperdensity within the bladder suggesting hemorrhagic etiology. Underlying neoplasm is not excluded. Recommend direct visual inspection. 2. Diverticulosis. 3. Bilateral femoral head avascular necrosis. 4. Subacute-remote right sacral ala stress fracture. D/ / 11/25/2018 09:31:42 Javy Stevenson MD / lgray Interpreting Provider: Javy Stevenson MD <Chacha Liu - Last Filed: 11/26/18 14:14> (2) Hypertension Qualifiers: Qualified Code(s): I10 - Essential (primary) hypertension (5) Thoracic compression fracture Qualifiers: Encounter type: initial encounter Thoracic vertebra fracture level: T4 Qualified Code(s): S22.040A - Wedge compression fracture of fourth thoracic vertebra, initial encounter for closed fracture <Magui Cho - Last Filed: 11/26/18 15:19> (2) Hypertension Qualifiers: Qualified Code(s): I10 - Essential (primary) hypertension (4) UTI (urinary tract infection) Qualifiers: Urinary tract infection type: acute cystitis Hematuria presence: with hematuria Qualified Code(s): N30.01 - Acute cystitis with hematuria (5) Thoracic compression fracture Qualifiers: Encounter type: initial encounter Thoracic vertebra fracture level: T4 Qualified Code(s): S22.040A - Wedge compression fracture of fourth thoracic vertebra, initial encounter for closed fracture
[2018-11-26] MEDS: cefTRIAXone 2,000 MG in Water for inj. (sterile) 20 ML 20 ML IVP SCH (14:27)
[2018-11-26] MEDS: *HR* HYDROcodone/Acet 5/325 mg TABLET PO PRN (16:51)
[2018-11-26] MEDS ORDERED: OXYCODONE Oral CONC 10 MG/0.5 ML ORAL.SYG SL ONE (18:43)
[2018-11-27 04:58] LABS: Basophils % 0.4 %; Immature Granulocytes % 0.2 % (0-4); Red Cell Distribution Width 13.3 % (11.5-14.5)
[2018-11-27 05:00] LABS: Eosinophils # 0.3 K/mcL (0.0-0.6); Eosinophils % 5.9 %; Hematocrit 28.5 % (35.3-44.9); Hemoglobin 9.4 g/dL (11.5-15.4); Immature Platelets 2.5 % (1.1-6.1); Lymphocytes # 1.7 K/mcL (0.6-4.6); Lymphocytes % 35.8 %; Mean Corpuscular Hemoglobin 27.9 pg (28.0-33.3); Mean Corpuscular Volume 84.6 fL (83.0-100.0); Mean Platelet Volume 10.1 fL (9.4-12.4); Monocytes # 0.5 K/mcL (0.0-1.3); Monocytes % 10.5 %; Neutrophils # 2.3 K/mcL (1.6-8.9); Red Blood Count 3.37 M/mcL (3.82-4.97); Segmented Neutrophils % 47.2 %; White Blood Count 4.8 K/mcL (4.3-11.1)
[2018-11-27 05:03] LABS: Platelet Count 81 K/mcL (140-400)
[2018-11-27 05:14] LABS: Alanine Aminotransferase 7 Units/L (7-52); Albumin 3.3 g/dL (3.5-5.7); Albumin/Globulin Ratio 1.5 (1.1-2.2); Alkaline Phosphatase 116 Units/L (34-104); Aspartate Amino Transferase 17 Units/L (13-39); BUN/Creatinine Ratio 45 (6-26); Bilirubin,Total 0.4 mg/dL (0.3-1.0); Blood Urea Nitrogen 29 mg/dL (8-23); Calcium 8.4 mg/dL (8.6-10.3); Carbon Dioxide 23 mEq/L (23-29); Chloride 109 mEq/L (98-107); Globulin 2.2 g/dL (2.4-3.5); Glucose 92 mg/dL (70-105); Osmolality,Calculated 293 (280-300); Sodium 139 mEq/L (136-145); Total Protein 5.5 g/dL (6.4-8.9); eGFR For African Americans > 60 (> 60); eGFR For Non-African Americans > 60 (> 60)
--- NOTE | 2018-11-27 08:07 | Internal Med Progress Note ---
<Mgaui Cho - Last Filed: 11/27/18 14:17> Hospitalist Progress Note - Encounter Date of Encounter: 11/27/18 Time of Encounter: 08:52 - Subjective Interval History: Today the patient is sitting up in bed due to crossword puzzle. She reported that last night she was confused in that she was at the grocery store so she called her daughter. She stated that she is more oriented now and feels better. She denied fever, chills, abdominal pain, dysuria, hematuria. She reported the dysuria has significantly improved since taking the medication pyridium. - Exam Vitals: Temp Pulse Resp BP Pulse Ox 98.2 F 82 15 131/72 95 11/27/18 04:35 11/27/18 04:35 11/27/18 04:35 11/27/18 04:35 11/27/18 04:35 Exam: Gen.: Vitals noted. No acute distress. AAOx3 HEENT: oropharynx clear, Normocephalic, atraumatic Cardiac: RRR, no murmur, +S1/S2 Pulmonary: CTA bilaterally, no wheezes, rales or rhonchi, equal chest expansion Abdomen: soft, nontender, Bowel sounds noted, no guarding MSK: no joint swelling noted Extremities: no BLE edema, nontender calf, no cyanosis or clubbing Neuro: A&Ox3, moves all extremities, no focal deficits Psych: Appropriate mood and behavior - Assessment and Plan (1) Hemorrhagic cystitis Current Visit: Yes Status: Acute Assessment and Plan: Patient admitted for hemorrhagic cystitis. She has a past medical history significant for recurrent urinary tract infections with most recent admission on 11/11/2018 for VRE UTI treated with Zyvox. -Urology was consulted in the ED and placed a larger Mtz catheter to evacuate blood clots in the bladder with sterile fluid to remove blood clot. They per formed CBI. -Hemorrhagic cystitis is likely secondary to her recurrent urinary tract infections -Afebrile, hemodynamically stable -WBC WNL -hemoglobin 9.4 (yesterday 10) decreased -urinalysis showing leukocyte esterase, blood, RBC -urine culture growing Klebsiella pneumoniae -Abdomen/pelvis CT showing large amount of blood within the bladder. Recommendations of direct visualization for possible underlying neoplasm. Diverticulosis. Bilateral femoral head avascular necrosis. Subacute remote r ight sacral ala stress fracture. -Patient reports dysuria symptoms have improved since taking pyridium. Plan -Dr. Gregorio infectious disease physician had recommended that to follow with antibiotic stewardship he recommended that daptomycin be stopped and to start Rocephin 2gram to continue treatment for UTI. This was based on past urinary cultures - stop Rocephin day 2 -start IV Levaquin 500 daily -urology following. Continue Mtz catheter per urology, may attempt to remove today. -continue to monitor hemoglobin in bleeding -pyridium PRN dysuria -pain medication PRN (2) Hypertension Current Visit: No Status: Chronic Assessment and Plan: History of hypertension taking carvedilol 6.25 mg b.i.d. -blood pressure stable -continue home medication (3) Dyslipidemia Current Visit: No Status: Chronic Assessment and Plan: History of hyperlipidemia taking simvastatin -lipid panel unremarkable -continue home medication (4) UTI (urinary tract infection) Current Visit: No Status: Acute Assessment and Plan: History of frequent urinary tract infections. Please see hemorrhagic cystitis assessment. (5) Thoracic compression fracture Current Visit: No Status: Acute Assessment and Plan: History of compression fracture that the patient is currently undergoing PT/[facility] for [facility]habat [facility]. -Abdomen/pelvis CT showing Bilateral femoral head avascular necrosis. Subacute remote right sacral ala stress fracture. -Continue PT/OT, recommendations to return to SNF -patient and follow-up with her orthopedic surgeon outpatient (6) DVT prophylaxis Current Visit: No Status: Acute Assessment and Plan: EPCD (7) Anemia Current Visit: Yes Status: Acute Assessment and Plan: Anemia secondary to acute blood loss from hemorrhagic cystitis -hemoglobin 9.4 (12.3 at admission) -no obvious active bleeding as hematuria has resolved. -Will continue to monitor for bleeding -continue to monitor hemoglobin, to make sure hemoglobin is stable prior to discharge - Time Spent with Patient Total time spent is greater than 50% in coordination of care (as documented) at patient's floor/unit and/or counseling patient: Internal Medicine: Result - Labs CBC & Chem 7: 11/27/18 04:22 11/27/18 04:22 Labs: Short CBC 11/27/18 Range/Units 04:22 WBC 4.8 (4.3-11.1) K/mcL Hgb 9.4 L (11.5-15.4) g/dL Hct 28.5 L (35.3-44.9) % Plt Count 81 L (140-400) K/mcL Neutrophils # 2.3 (1.6-8.9) K/mcL BMP 11/27/18 04:22 Sodium 139 Potassium 4.0 Chloride 109 H Carbon Dioxide 23 BUN 29 H Creatinine 0.64 Glucose 92 Calcium 8.4 L Liver Function 11/27/18 Range/Units 04:22 Total Bilirubin 0.4 (0.3-1.0) mg/dL AST 17 (13-39) Units/L ALT 7 (7-52) Units/L Alkaline Phosphatase 116 H (34-104) Units/L Albumin 3.3 L (3.5-5.7) g/dL - ABG Interpretation ABG results: PT/INR, D-dimer PT 13.0 Seconds (9.4-12.1) H 11/26/18 04:39 - Impressions Impressions Abdomen/Pelvis CT 11/25/18 08:11 IMPRESSION: 1. Large amount of hyperdensity within the bladder suggesting hemorrhagic etiology. Underlying neoplasm is not excluded. Recommend direct visual inspection. 2. Diverticulosis. 3. Bilateral femoral head avascular necrosis. 4. Subacute-remote right sacral ala stress fracture. D/ / 11/25/2018 09:31:42 Javy Stevenson MD / lgray Interpreting Provider: Javy Stevenson MD Consult Discharge Plan - Plan Referrals: Cem Dorantes MD [Primary Care Provider] - <Chacha Liu - Last Filed: 11/27/18 14:50> Hospitalist Progress Note - Encounter Date of Encounter: 11/27/18 - Exam Vitals: Temp Pulse Resp BP Pulse Ox 97.5 F L 87 19 180/79 97 11/27/18 08:00 11/27/18 08:00 11/27/18 08:00 11/27/18 08:00 11/27/18 08:45 - Assessment and Plan (1) DVT prophylaxis Current Visit: No Status: Acute (2) Hypertension Current Visit: No Status: Chronic (3) UTI (urinary tract infection) Current Visit: No Status: Acute (4) Dyslipidemia Current Visit: No Status: Chronic (5) Thoracic compression fracture Current Visit: No Status: Acute (6) Hemorrhagic cystitis Current Visit: Yes Status: Acute (7) Anemia Current Visit: Yes Status: Acute - Time Spent with Patient Total time spent is greater than 50% in coordination of care (as documented) at patient's floor/unit and/or counseling patient: Internal Medicine: Result - Labs CBC & Chem 7: 11/27/18 04:22 11/27/18 04:22 Labs: Short CBC 11/27/18 Range/Units 04:22 WBC 4.8 (4.3-11.1) K/mcL Hgb 9.4 L (11.5-15.4) g/dL Hct 28.5 L (35.3-44.9) % Plt Count 81 L (140-400) K/mcL Neutrophils # 2.3 (1.6-8.9) K/mcL BMP 11/27/18 04:22 Sodium 139 Potassium 4.0 Chloride 109 H Carbon Dioxide 23 BUN 29 H Creatinine 0.64 Glucose 92 Calcium 8.4 L Liver Function 11/27/18 Range/Units 04:22 Total Bilirubin 0.4 (0.3-1.0) mg/dL AST 17 (13-39) Units/L ALT 7 (7-52) Units/L Alkaline Phosphatase 116 H (34-104) Units/L Albumin 3.3 L (3.5-5.7) g/dL - ABG Interpretation ABG results: PT/INR, D-dimer PT 13.0 Seconds (9.4-12.1) H 11/26/18 04:39 - Attending Attestation I examined this patient and my medical decision-making was reviewed with the Resident Physician Dr Cho. I agree with the documented findings, disposition and treatment plan as described except to the extent set forth below. Ms Hollins is being observed for recurrent UTI and hemorrhagic cystitis awake, mild dysuria today, no abd pain, fevers or chills. denies seeing any blood/clots in mtz bag gen- alert, awake,appears stated age cv- reg rate and rhythm, normal s1,s2 lungs- ctabl, normal resp effort on ra abd- soft, non tender, non distended gu- mtz cath in place clear yellow urine neuro- AAOx3 Hemorrhagic cystitis with acute anemia UTI Klebsiella -pending uro eval today, may be able to dc mtz, change abx to levaquin given sensitivities, cont to monitor hgb Incidental bl avascular necrosis Also recent falls with compression and rib fxs -pt/ot and back to snf on dc -will refer for outpt ortho appt at dc further dx and plan as noted by resident <Magui Cho - Last Filed: 11/27/18 14:17> (2) Hypertension Qualifiers: Qualified Code(s): I10 - Essential (primary) hypertension (4) UTI (urinary tract infection) Qualifiers: Urinary tract infection type: acute cystitis Hematuria presence: with hemat uria Qualified Code(s): N30.01 - Acute cystitis with hematuria (5) Thoracic compression fracture Qualifiers: Encounter type: initial encounter Thoracic vertebra fracture level: T4 Qualified Code(s): S22.040A - Wedge compression fracture of fourth thoracic vertebra, initial encounter for closed fracture <Chacha Liu - Last Filed: 11/27/18 14:50> (2) Hypertension Qualifiers: Qualified Code(s): I10 - Essential (primary) hypertension (3) UTI (urinary tract infection) Qualifiers: Urinary tract infection type: acute cystitis Hematuria presence: with hematuria Qualified Code(s): N30.01 - Acute cystitis with hematuria (5) Thoracic compression fracture Qualifiers: Encounter type: initial encounter Thoracic vertebra fracture level: T4 Qualified Code(s): S22.040A - Wedge compression fracture of fourth thoracic vertebra, initial encounter for closed fracture
--- NOTE | 2018-11-27 08:44 | Urology Progress Note ---
<Jolie Mitchell N - Last Filed: 11/27/18 08:40> Date of Encounter: 11/27/18 Time of Encounter: 08:25 - Assessment and Plan (1) Hemorrhagic cystitis Current Visit: Yes Status: Acute Assessment and plan: Patient is an 83-year-old female who presents with hemorrhagic cystitis. Patient has a recent history of multidrug-resistant VRE. Preliminary urine culture is positive for gram-negative rods. We are awaiting final culture and sensitivity report. Vital signs are stable and afebrile. Patient is receiving IV Rocephin. Urine has remained clear off CBI. Gallegos catheter was placed for gross hematuria and clot retention, not for urinary retention. We may consider removing Gallegos catheter today. Dr. Campos will be in to reevaluate patient. Progress Note Subjective: no new complaints, feels better Narrative: Patient seen and examined sitting upright in bed in no apparent distress. Gallegos catheter is indwelling and draining transparent, clear yellow urine into bedside bag. Patient has been off CBI since yesterday, and urine has remained clear. Patient denies any fever, chills or flank pain. Objective Initial Vital Signs Temp Pulse Resp BP Pulse Ox 97.4 F L 110 18 133/99 97 11/25/18 05:24 11/25/18 05:24 11/25/18 05:24 11/25/18 05:24 11/25/18 05:24 - General physical appearance Present: well developed, no distress, no pain - Respiratory Present: normal expansion, normal respiratory effort - Abdomen Present: soft, non tender. Absent: distended - Genitourinary Urine Appearance: Present: Clear, Sediment - Integumentary Present: no rash, no abnormal pigmentation - Musculoskeletal Present: normal posture - Psychiatric Present: oriented to time, oriented to person, speech is normal, memory intact - Labs 11/27/18 04:22 11/27/18 04:22 Diabetes panel 11/27/18 Range/Units 04:22 Sodium 139 (136-145) mEq/L Potassium 4.0 (3.5-5.1) mEq/L Chloride 109 H (98-107) mEq/L Carbon Dioxide 23 (23-29) mEq/L BUN 29 H (8-23) mg/dL Creatinine 0.64 (0.60-1.20) mg/dL Glucose 92 (70-105) mg/dL Calcium 8.4 L (8.6-10.3) mg/dL AST 17 (13-39) Units/L ALT 7 (7-52) Units/L Alkaline Phosphatase 116 H (34-104) Units/L Albumin 3.3 L (3.5-5.7) g/dL Calcium panel 11/27/18 Range/Units 04:22 Calcium 8.4 L (8.6-10.3) mg/dL Albumin 3.3 L (3.5-5.7) g/dL Pituitary panel 11/27/18 Range/Units 04:22 Sodium 139 (136-145) mEq/L Potassium 4.0 (3.5-5.1) mEq/L Chloride 109 H (98-107) mEq/L Carbon Dioxide 23 (23-29) mEq/L BUN 29 H (8-23) mg/dL Creatinine 0.64 (0.60-1.20) mg/dL Glucose 92 (70-105) mg/dL Calcium 8.4 L (8.6-10.3) mg/dL Adrenal panel 11/27/18 Range/Units 04:22 Sodium 139 (136-145) mEq/L Potassium 4.0 (3.5-5.1) mEq/L Chloride 109 H (98-107) mEq/L Carbon Dioxide 23 (23-29) mEq/L BUN 29 H (8-23) mg/dL Creatinine 0.64 (0.60-1.20) mg/dL Glucose 92 (70-105) mg/dL Calcium 8.4 L (8.6-10.3) mg/dL Total Bilirubin 0.4 (0.3-1.0) mg/dL AST 17 (13-39) Units/L ALT 7 (7-52) Units/L Alkaline Phosphatase 116 H (34-104) Units/L Albumin 3.3 L (3.5-5.7) g/dL Consult Discharge Plan - Plan Referrals: Cem Dorantes MD [Primary Care Provider] - <Rafy Campos - Last Filed: 11/27/18 17:27> Date of Encounter: 11/27/18 - Assessment and Plan (1) Acute cystitis with hematuria Current Visit: Yes Status: Acute (2) Hemorrhagic cystitis Current Visit: Yes Status: Acute Progress Note Narrative: Patient was seen and examined independent way. Plan is written by Jolie Mitchell. I spoke to the patient's daughter this evening and patient has not required a catheter in the past. We will plan on removing catheter tonight. Will reevaluate patient tomorrow morning. Objective Initial Vital Signs Temp Pulse Resp BP Pulse Ox 97.4 F L 110 18 133/99 97 11/25/18 05:24 11/25/18 05:24 11/25/18 05:24 11/25/18 05:24 11/25/18 05:24 - Labs 11/27/18 04:22 11/27/18 04:22 Diabetes panel 11/27/18 Range/Units 04:22 Sodium 139 (136-145) mEq/L Potassium 4.0 (3.5-5.1) mEq/L Chloride 109 H (98-107) mEq/L Carbon Dioxide 23 (23-29) mEq/L BUN 29 H (8-23) mg/dL Creatinine 0.64 (0.60-1.20) mg/dL Glucose 92 (70-105) mg/dL Calcium 8.4 L (8.6-10.3) mg/dL AST 17 (13-39) Units/L ALT 7 (7-52) Units/L Alkaline Phosphatase 116 H (34-104) Units/L Albumin 3.3 L (3.5-5.7) g/dL Calcium panel 11/27/18 Range/Units 04:22 Calcium 8.4 L (8.6-10.3) mg/dL Albumin 3.3 L (3.5-5.7) g/dL Pituitary panel 11/27/18 Range/Units 04:22 Sodium 139 (136-145) mEq/L Potassium 4.0 (3.5-5.1) mEq/L Chloride 109 H (98-107) mEq/L Carbon Dioxide 23 (23-29) mEq/L BUN 29 H (8-23) mg/dL Creatinine 0.64 (0.60-1.20) mg/dL Glucose 92 (70-105) mg/dL Calcium 8.4 L (8.6-10.3) mg/dL Adrenal panel 11/27/18 Range/Units 04:22 Sodium 139 (136-145) mEq/L Potassium 4.0 (3.5-5.1) mEq/L Chloride 109 H (98-107) mEq/L Carbon Dioxide 23 (23-29) mEq/L BUN 29 H (8-23) mg/dL Creatinine 0.64 (0.60-1.20) mg/dL Glucose 92 (70-105) mg/dL Calcium 8.4 L (8.6-10.3) mg/dL Total Bilirubin 0.4 (0.3-1.0) mg/dL AST 17 (13-39) Units/L ALT 7 (7-52) Units/L Alkaline Phosphatase 116 H (34-104) Units/L Albumin 3.3 L (3.5-5.7) g/dL
[2018-11-27] MEDS: cefTRIAXone 2,000 MG in Water for inj. (sterile) 20 ML 20 ML IVP SCH (09:55)
[2018-11-27] MEDS: Aspirin Enteric Coated 81 MG Tablet PO SCH (09:56)
[2018-11-27] MEDS: Famotidine 20 MG TABLET PO SCH (09:56)
--- NOTE | 2018-11-27 12:40 | Electrocardiograph Report ---
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
[2018-11-27] MEDS ORDERED: Levofloxacin 500 MG/100 ML 500 MG/100 ML BAG IVPB SCH (15:00)
[2018-11-28 03:21] LABS: Hemoglobin 9.2 g/dL (11.5-15.4)
[2018-11-28 03:23] LABS: Basophils % 0.3 %; Eosinophils # 0.4 K/mcL (0.0-0.6); Eosinophils % 6.3 %; Hematocrit 27.6 % (35.3-44.9); Immature Granulocytes % 0.3 % (0-4); Immature Platelets 2.6 % (1.1-6.1); Lymphocytes # 1.4 K/mcL (0.6-4.6); Lymphocytes % 24.3 %; Mean Corpuscular HGB Conc 33.3 g/dL (31.6-35.5); Mean Corpuscular Volume 84.1 fL (83.0-100.0); Mean Platelet Volume 9.8 fL (9.4-12.4); Monocytes # 0.8 K/mcL (0.0-1.3); Monocytes % 13.6 %; Neutrophils # 3.2 K/mcL (1.6-8.9); Red Blood Count 3.28 M/mcL (3.82-4.97); Segmented Neutrophils % 55.2 %; White Blood Count 5.7 K/mcL (4.3-11.1)
[2018-11-28 03:26] LABS: Platelet Count 89 K/mcL (140-400)
[2018-11-28 03:41] LABS: BUN/Creatinine Ratio 36 (6-26); Blood Urea Nitrogen 21 mg/dL (8-23); Calcium 8.6 mg/dL (8.6-10.3); Carbon Dioxide 23 mEq/L (23-29); Chloride 105 mEq/L (98-107); Glucose 121 mg/dL (70-105); Magnesium 1.4 mg/dL (1.6-2.6); Osmolality,Calculated 290 (280-300); Potassium 3.9 mEq/L (3.5-5.1); Sodium 138 mEq/L (136-145); eGFR For African Americans > 60 (> 60); eGFR For Non-African Americans > 60 (> 60)
--- NOTE | 2018-11-28 08:00 | Urology Progress Note ---
<Jolie Mitchell N - Last Filed: 11/28/18 07:57> Date of Encounter: 11/28/18 Time of Encounter: 07:45 - Assessment and Plan (1) Hemorrhagic cystitis Current Visit: Yes Status: Acute Assessment and plan: Patient is an 83-year-old female who presents with hemorrhagic cystitis and a urinary tract infection secondary to Klebsiella. Vital signs are stable and afebrile. White blood cell count is reassuring. Patient is receiving IV Levaquin. Patient is urinating well without Gallegos catheter, and gross hematuria is resolved per patient. Urology will sign off, but we are always available as needed. Patient may follow up as an outpatient with Dr. Campos within 2 weeks of discharge. Progress Note Subjective: no new complaints, feels better Narrative: Patient seen and examined sitting upright in bed in no apparent distress. Patient reports she is voiding well without difficulty. Patient denies any gross hematuria, fever, chills or flank pain. Patient admits to continued nausea, vomiting, and diarrhea. Objective Initial Vital Signs Temp Pulse Resp BP Pulse Ox 97.4 F L 110 18 133/99 97 11/25/18 05:24 11/25/18 05:24 11/25/18 05:24 11/25/18 05:24 11/25/18 05:24 - General physical appearance Present: no distress, no pain - Respiratory Present: normal expansion, normal respiratory effort - Abdomen Present: soft, non tender. Absent: distended - Genitourinary Urine Appearance: Absent: Hematuria - Integumentary Present: no rash, no abnormal pigmentation - Musculoskeletal Present: normal posture - Psychiatric Present: oriented to time, oriented to person, oriented to place, speech is normal, memory intact - Labs 11/28/18 02:55 11/28/18 02:55 Diabetes panel 11/28/18 Range/Units 02:55 Sodium 138 (136-145) mEq/L Potassium 3.9 (3.5-5.1) mEq/L Chloride 105 (98-107) mEq/L Carbon Dioxide 23 (23-29) mEq/L BUN 21 (8-23) mg/dL Creatinine 0.58 L (0.60-1.20) mg/dL Glucose 121 H (70-105) mg/dL Calcium 8.6 (8.6-10.3) mg/dL Calcium panel 11/28/18 Range/Units 02:55 Calcium 8.6 (8.6-10.3) mg/dL Pituitary panel 11/28/18 Range/Units 02:55 Sodium 138 (136-145) mEq/L Potassium 3.9 (3.5-5.1) mEq/L Chloride 105 (98-107) mEq/L Carbon Dioxide 23 (23-29) mEq/L BUN 21 (8-23) mg/dL Creatinine 0.58 L (0.60-1.20) mg/dL Glucose 121 H (70-105) mg/dL Calcium 8.6 (8.6-10.3) mg/dL Adrenal panel 11/28/18 Range/Units 02:55 Sodium 138 (136-145) mEq/L Potassium 3.9 (3.5-5.1) mEq/L Chloride 105 (98-107) mEq/L Carbon Dioxide 23 (23-29) mEq/L BUN 21 (8-23) mg/dL Creatinine 0.58 L (0.60-1.20) mg/dL Glucose 121 H (70-105) mg/dL Calcium 8.6 (8.6-10.3) mg/dL Consult Discharge Plan - Plan Additional Instructions: - Finish taking antibiotics to completion -Follow-up with the urologist Dr. Campos in 2 weeks in his office -Return hospital should he develop increased urinary hematuria, fever, chills -Follow-up with her primary care provider in 1 to 2 weeks Referrals: [facility] [Provider Group] (incidental AVN dx, outpt follow up) Rafy Campos MD [Partnered Physician] - (Web request sent) Cem Dorantes MD [Primary Care Provider] - Prescriptions: levoFLOXacin [Levaquin] 500 mg PO DAILY #6 tablet <Rafy Campos - Last Filed: 11/28/18 14:53> Date of Encounter: 11/28/18 - Assessment and Plan (1) Acute cystitis with hematuria Current Visit: Yes Status: Acute (2) Hemorrhagic cystitis Current Visit: Yes Status: Acute Progress Note Narrative: Patient was seen and examined independently. Agree with the plan as written by Jolie Mitchell. At this point patient is voiding well. No further hematuria. Recommend complete course of antimicrobial coverage for current culture results. Patient can follow up with urology in 3-4 weeks. Objective Initial Vital Signs Temp Pulse Resp BP Pulse Ox 97.4 F L 110 18 133/99 97 11/25/18 05:24 11/25/18 05:24 11/25/18 05:24 11/25/18 05:24 11/25/18 05:24 - Labs 11/28/18 10:00 11/28/18 02:55 Diabetes panel 11/28/18 Range/Units 02:55 Sodium 138 (136-145) mEq/L Potassium 3.9 (3.5-5.1) mEq/L Chloride 105 (98-107) mEq/L Carbon Dioxide 23 (23-29) mEq/L BUN 21 (8-23) mg/dL Creatinine 0.58 L (0.60-1.20) mg/dL Glucose 121 H (70-105) mg/dL Calcium 8.6 (8.6-10.3) mg/dL Calcium panel 11/28/18 Range/Units 02:55 Calcium 8.6 (8.6-10.3) mg/dL Pituitary panel 11/28/18 Range/Units 02:55 Sodium 138 (136-145) mEq/L Potassium 3.9 (3.5-5.1) mEq/L Chloride 105 (98-107) mEq/L Carbon Dioxide 23 (23-29) mEq/L BUN 21 (8-23) mg/dL Creatinine 0.58 L (0.60-1.20) mg/dL Glucose 121 H (70-105) mg/dL Calcium 8.6 (8.6-10.3) mg/dL Adrenal panel 11/28/18 Range/Units 02:55 Sodium 138 (136-145) mEq/L Potassium 3.9 (3.5-5.1) mEq/L Chloride 105 (98-107) mEq/L Carbon Dioxide 23 (23-29) mEq/L BUN 21 (8-23) mg/dL Creatinine 0.58 L (0.60-1.20) mg/dL Glucose 121 H (70-105) mg/dL Calcium 8.6 (8.6-10.3) mg/dL
--- NOTE | 2018-11-28 08:57 | Discharge Summary ---
<Magui Cho - Last Filed: 11/28/18 13:22> - NOTES TO OUTPATIENT PROVIDER Notes to Outpatient Provider: Admitted for hemorrhagic cystitis with significant hematuria. Urology evaluated the patient and will follow up in 2 weeks outpatient. Discharged with Levaquin to complete treatment for urinary tract infection. PT/OT recommended SNF for rehab. Discharged to [facility]. Orders not resulted at time of discharge: Pending orders 11/28/18 10:00 Hemoglobin and Hematocrit [HEME] Timed Date of Encounter: 11/28/18 Time of Encounter: 08:56 - Discharge Diagnosis (1) Hemorrhagic cystitis Priority: Primary Status: Acute (2) Hypertension Priority: Secondary Status: Chronic Qualifiers: Qualified Code(s): I10 - Essential (primary) hypertension (3) Dyslipidemia Priority: Secondary Status: Chronic (4) UTI (urinary tract infection) Priority: Secondary Status: Acute Qualifiers: Urinary tract infection type: acute cystitis Hematuria presence: with hematuria Qualified Code(s): N30.01 - Acute cystitis with hematuria (5) Thoracic compression fracture Priority: Secondary Status: Acute Qualifiers: Encounter type: initial encounter Thoracic vertebra fracture level: T4 Qualified Code(s): S22.040A - Wedge compression fracture of fourth thoracic vertebra, initial encounter for closed fracture (6) DVT prophylaxis Priority: Secondary Status: Acute (7) Anemia Priority: Secondary Status: Acute Qualifiers: Qualified Code(s): D62 - Acute posthemorrhagic anemia Hospital course: Ms. Hollins is a 83 year old female with PMH hypertension, hyperlipidemia, Gerd, osteoporosis who presented from [facility] due to hematuria. She had just been [facility] the [facility] with conservative management of compression and nondisplaced rib fractures with pain control and rehab arrangement. Along with VRE UTI requiring treatment with zyvox. On the day of admission a worker at the [facility] had notice of the patient had blood in her depends. She was admitted for hemorrhagic cystitis likely secondary to her recurrent urinary tract infections. Vaginal exam in the ED was negative for blood. The patient complained of dysuria as well. Abdomen/pelvis CT showing large amount of blood within the bladder. Recommendations of direct visualization for possible underlying neoplasm. Diverticulosis. Bilateral femoral head avascular necrosis. Subacute remote right sacral ala stress fracture. Urology was consulted in the ED and placed a larger Mtz catheter to evacuate blood clots in the bladder with sterile fluid to remove blood clot. They performed CBI. Urinalysis showing leukocyte esterase, blood, RBC. Urine culture growing Klebsiella pneumoniae. Patient was initially started on daptomycin. Dr. Gregorio infectious disease physician had recommended that to follow with antibiotic stewardship he recommended that daptomycin be stopped and to start Rocephin 2gram to continue treatment for UTI. This was based on past urinary cultures. Hemoglobin at admission was 12.3 within decreased to 10. Magnesium was supplemented as it will was as low as 1.4. Hemoglobin was trended to make sure she was still not decreasing in remain stable. There is no obvious active bleeding. Upon discharge the patient was given Levaquin to complete treatment of urinary tract infection. The patient denied fever, chills, dysuria, abdominal pain, hematuria, cough, shortness of breath. The Mtz catheter had been removed by urology and they arranged for follow up in the office in 2 weeks. She is to be discharged back to [facility] to complete rehab. PT/OT and patient also recommended continued rehab. She is to follow up with her primary care provider in 1 to 2 weeks. She stated clear understanding of the treatment plan. Discharge discussed with: patient, nurse - Time Spent with Patient Total time spent providing and/or coordinating discharge services: Time spent: Greater than 30 minutes - Discharge Medications Prescriptions: New levoFLOXacin [Levaquin] 500 mg PO DAILY #6 tablet Continued Carvedilol [Coreg] 6.25 mg PO BID Simvastatin [Zocor] 10 mg PO HS Potassium Chloride [Klor-Con 10] 10 meq PO BID Aspirin [Lo-Dose Aspirin EC] 81 mg PO DAILY Famotidine [Pepcid] 40 mg PO DAILY Ferrous Gluconate 324 mg PO DAILY Acetaminophen [Non-Aspirin] 650 mg PO BID PRN PRN Reason: Pain Loperamide [Imodium] 2 mg PO Q6H PRN PRN Reason: Diarrhea Docusate [Colace] 100 mg PO BID PRN PRN Reason: Constipation Polyethylene Glycol 3350 [MiraLAX] 17 gm PO DAILY PRN PRN Reason: Constipation Cyanocobalamin (B-12) [Vitamin B12] 1,000 mcg IM QMONTH Changed Meloxicam [Mobic] 15 mg PO DAILY PRN #0 PRN Reason: Pain Discontinued Linezolid [Zyvox] 600 mg PO BID #10 tablet Home Medications: Aspirin [Lo-Dose Aspirin EC] 81 mg PO DAILY 08/19/16 [History] Carvedilol [Coreg] 6.25 mg PO BID 08/19/16 [History] Potassium Chloride [Klor-Con 10] 10 meq PO BID 08/19/16 [History] Simvastatin [Zocor] 10 mg PO HS 08/19/16 [History] Famotidine [Pepcid] 40 mg PO DAILY 12/27/17 [History] Acetaminophen [Non-Aspirin] 650 mg PO BID PRN 06/09/18 [History] Ferrous Gluconate 324 mg PO DAILY 06/09/18 [History] Loperamide [Imodium] 2 mg PO Q6H PRN 06/09/18 [History] Cyanocobalamin (B-12) [Vitamin B12] 1,000 mcg IM QMONTH 11/11/18 [History] Docusate [Colace] 100 mg PO BID PRN 11/11/18 [History] Polyethylene Glycol 3350 [MiraLAX] 17 gm PO DAILY PRN 11/11/18 [History] Meloxicam [Mobic] 15 mg PO DAILY PRN #0 11/28/18 [Rx] levoFLOXacin [Levaquin] 500 mg PO DAILY #6 tablet 11/28/18 [Rx] Allergies/Adverse Reactions: Allergy/AdvReac Type Severity Reaction Status Date / Time Sulfa (Sulfonamide Allergy Rash Verified 11/26/18 07:54 Antibiotics) Cyclobenzaprine AdvReac Confusion Verified 11/26/18 07:54 [From Flexeril] Date of admission: 11/25/18 10:44 Primary care physician: Cem Dorantes MD Consults: 11/25/18 09:58 Consult to Urology [CONS] Stat Consulting Provider: Urology Guerda Reason for Consult: hemorrhagic cystitis Time Notified: 09:59 Call Completed: Yes 11/25/18 14:49 Consult to Occupational Therapy [CONS] Routine Comment: Evaluate, develop and implement POC Reason for Consult: Required to return to [facility] please see when stable Does patient have active BEDREST order?: No Is patient medically & hemodynamically stable?: No Patient assessed for mobility or mobilized this visit?: No Consult to Physical Therapy [CONS] Routine Comment: Evaluate, develop and implement POC Reason for Consult: Required to return to [facility] please see when stable Does patient have active BEDREST order?: Yes Is patient medically & hemodynamically stable?: Yes Patient assessed for mobility or mobilized this visit?: No 11/25/18 15:36 Consult to Management Specialist [CONS] Routine Reason for SW Consult: From [facility] with Rehab Discharging clinician: Chacha Liu Anticipated date of discharge: 11/28/18 - Constitutional Vitals: Temp Pulse Resp BP Pulse Ox 98.1 F 88 16 156/81 94 11/28/18 07:22 11/28/18 07:22 11/28/18 07:22 11/28/18 07:22 11/28/18 07:22 General appearance: Present: A&O X 0 Exam: Gen.: Vitals noted. No acute distress. AAOx3 HEENT: oropharynx clear, Normocephalic, atraumatic Cardiac: RRR, no murmur, +S1/S2 Pulmonary: CTA bilaterally, no wheezes, rales or rhonchi, equal chest expansion Abdomen: soft, nontender, Bowel sounds noted, no guarding Extremities: no BLE edema, nontender calf, no cyanosis or clubbing Neuro: A&Ox3, moves all extremities, no focal deficits Psych: Appropriate mood and behavior - Patient Status Disposition: Transfer Inpatient Rehab Fac Condition: Good Functional capacity at discharge: uses cane/walker Overall status at discharge: patient is back to baseline - Discharge Instructions Follow Up With: Rafy Campos MD [Partnered Physician] - Cem Dorantes MD [Primary Care Provider] - [facility] [Provider Group] (incidental AVN dx, outpt follow up) Additional Instructions: - Finish taking antibiotics to completion -Follow-up with the urologist Dr. Campos in 2 weeks in his office -Return hospital should he develop increased urinary hematuria, fever, chills -Follow-up with her primary care provider in 1 to 2 weeks - Diet and Activity Activity: ambulate only with your walker Diet: advance to your usual diet <Chacha Liu - Last Filed: 11/28/18 14:49> - NOTES TO OUTPATIENT PROVIDER Notes to Outpatient Provider: incidental bilateral AVN noted on CT a/p. Recommend outpt ortho follow up. Date of Encounter: 11/28/18 - Discharge Diagnosis (1) DVT prophylaxis Status: Acute (2) Hypertension Status: Chronic Qualifiers: Qualified Code(s): I10 - Essential (primary) hypertension (3) UTI (urinary tract infection) Status: Acute Qualifiers: Urinary tract infection type: acute cystitis Hematuria presence: with hematuria Qualified Code(s): N30.01 - Acute cystitis with hematuria (4) Dyslipidemia Status: Chronic (5) Thoracic compression fracture Status: Acute Qualifiers: Encounter type: initial encounter Thoracic vertebra fracture level: T4 Qualified Code(s): S22.040A - Wedge compression fracture of fourth thoracic vertebra, initial encounter for closed fracture (6) Hemorrhagic cystitis Status: Acute (7) Anemia Status: Acute Qualifiers: Qualified Code(s): D62 - Acute posthemorrhagic anemia Hospital course: Ms. Hollins is a 83 year old female - Time Spent with Patient Total time spent providing and/or coordinating discharge services: Time spent: Greater than 30 minutes (40 min) Date of admission: 11/25/18 10:44 Primary care physician: Cem Dorantes MD Consults: 11/25/18 09:58 Consult to Urology [CONS] Stat Consulting Provider: Paco Croft Reason for Consult: hemorrhagic cystitis Time Notified: 09:59 Call Completed: Yes 11/25/18 14:49 Consult to Occupational Therapy [CONS] Routine Comment: Evaluate, develop and implement POC Reason for Consult: Required to return to [facility] please see when stable Does patient have active BEDREST order?: No Is patient medically & hemodynamically stable?: No Patient assessed for mobility or mobilized this visit?: No Consult to Physical Therapy [CONS] Routine Comment: Evaluate, develop and implement POC Reason for Consult: Required to return to [facility] please see when stable Does patient have active BEDREST order?: Yes Is patient medically & hemodynamically stable?: Yes Patient assessed for mobility or mobilized this visit?: No 11/25/18 15:36 Consult to Management Specialist [CONS] Routine Reason for SW Consult: From [facility] with Rehab - Constitutional Vitals: Temp Pulse Resp BP Pulse Ox 97.8 F 85 16 138/80 97 11/28/18 11:49 11/28/18 11:49 11/28/18 11:49 11/28/18 11:49 11/28/18 11:49 - Attending Attestation I examined this patient and my medical decision-making was reviewed with the Resident Physician Dr Cho. I agree with the documented findings, disposition and treatment plan as described except to the extent set forth below. Ms Hollins is being observed for recurrent UTI and hemorrhagic cystitis awake, no abd pain, bladder pain/pressure or dysuria. urinating without mtz without difficulty. no fevers or chills. happy for dc to snf. she declined to have me call daughter to update and dc plan discussed in detail with pt who verbalized good understanding. gen- alert, awake,appears stated age cv- reg rate and rhythm, normal s1,s2 lungs- ctabl, normal resp effort on ra abd- soft, non tender, + bs neuro- AAOx3 Hemorrhagic cystitis with acute anemia UTI Klebsiella -levaquin to complete course, hgb stable, outpt urology Incidental bl avascular necrosis Also recent falls with compression and rib fxs -pt/ot and back to snf on dc -will refer for outpt ortho appt at dc further dx and plan as noted by resident time spent on dc 40 min dispo to snf
[2018-11-28] MEDS ORDERED: Magnesium Oxide 400 MG TABLET PO SCH (09:00)
[2018-11-28] MEDS: Famotidine 20 MG TABLET PO SCH (09:25)
[2018-11-28] MEDS: Aspirin Enteric Coated 81 MG Tablet PO SCH (09:26)
[2018-11-28 10:50] LABS: Hemoglobin 9.5 g/dL (11.5-15.4)
[2018-11-28] MEDS ORDERED: levoFLOXacin 500 MG TABLET PO SCH (15:00)
[2018-11-28 15:32] VITALS: BP 136/71
--- NOTE | 2018-11-28 16:08 | Physician Discharge Referral ---
<Magui Cho - Last Filed: 11/28/18 16:07> ExtendedCare Referral Info Transfer To: SNF Provider in Charge after Transfer: PCP Institutional Level of Care: Skilled - Diagnosis (1) Hemorrhagic cystitis Status: Acute (2) Hypertension Status: Chronic (3) Dyslipidemia Status: Chronic (4) UTI (urinary tract infection) Status: Acute (5) Anemia Status: Acute (6) Thoracic compression fracture Status: Acute (7) DVT prophylaxis Status: Acute - Transfer Medications Prescriptions: levoFLOXacin [Levaquin] 500 mg PO DAILY #6 tablet Home Medications: Aspirin [Lo-Dose Aspirin EC] 81 mg PO DAILY 08/19/16 [History] Carvedilol [Coreg] 6.25 mg PO BID 08/19/16 [History] Potassium Chloride [Klor-Con 10] 10 meq PO BID 08/19/16 [History] Simvastatin [Zocor] 10 mg PO HS 08/19/16 [History] Famotidine [Pepcid] 40 mg PO DAILY 12/27/17 [History] Acetaminophen [Non-Aspirin] 650 mg PO BID PRN 06/09/18 [History] Ferrous Gluconate 324 mg PO DAILY 06/09/18 [History] Loperamide [Imodium] 2 mg PO Q6H PRN 06/09/18 [History] Cyanocobalamin (B-12) [Vitamin B12] 1,000 mcg IM QMONTH 11/11/18 [History] Docusate [Colace] 100 mg PO BID PRN 11/11/18 [History] Polyethylene Glycol 3350 [MiraLAX] 17 gm PO DAILY PRN 11/11/18 [History] Meloxicam [Mobic] 15 mg PO DAILY PRN #0 11/28/18 [Rx] levoFLOXacin [Levaquin] 500 mg PO DAILY #6 tablet 11/28/18 [Rx] Allergies/Adverse Reactions: Allergy/AdvReac Type Severity Reaction Status Date / Time Sulfa (Sulfonamide Allergy Rash Verified 11/26/18 07:54 Antibiotics) Cyclobenzaprine AdvReac Confusion Verified 11/26/18 07:54 [From Flexeril] - Respiratory Orders Smoking Cessation: Smoking cessation has been advised. For more information, call the [place] Tobacco Quit Line at 5-921-EADO-NOW. - Advance Directives Code Status: DNR-Arrest - Mobility Orders Ambulate - Rehabiliation Orders Rehab Potential: Good Rehab Orders: Evaluation for Physical Therapy, Evaluation for Occupational Therapy - Diet Orders Regular CERTIFICATION: I certify that the transfer of the above named patient to an Extended Care Facility is necessary for the continuing treatment of the diagnosis listed. The above information is true and accurate reflection of patient's current condition. Confidential - Redisclosure prohibited without a patient's written consent. <Chacha Liu - Last Filed: 11/28/18 16:13> - Diagnosis (1) DVT prophylaxis Priority: Secondary Status: Acute (2) Hypertension Priority: Secondary Status: Chronic (3) UTI (urinary tract infection) Priority: Secondary Status: Acute (4) Dyslipidemia Priority: Secondary Status: Chronic (5) Thoracic compression fracture Priority: Secondary Status: Acute (6) Hemorrhagic cystitis Priority: Primary Status: Acute (7) Anemia Priority: Secondary Status: Acute Prognosis: Good - Respiratory Orders None Smoking Cessation: Smoking cessation has been advised. For more information, call the [place] Tobacco Quit Line at 9-956-ESQQ-NOW. - Ancillary Orders May use pressure relief devices daily prn - Rehabiliation Orders Rehab Orders: ROM Exercises - Treatments Skin tear care topically daily PRN per policy CERTIFICATION: I certify that the transfer of the above named patient to an Extended Care Facility is necessary for the continuing treatment of the diagnosis listed. The above information is true and accurate reflection of patient's current condition. Confidential - Redisclosure prohibited without a patient's written consent.
== END 2018-11-28 16:26 ==
LOC: EMEROOARM 05:08 → CDU 05:08 → SUATTDRO 10:44 → CDU 11:12 → 3ANU 16:19
PROVIDERS: ADMIT Internal Medicine Nephrology; ATTEND Internal Medicine